=== PATIENT | female | born 1930 | race Caucasian/White ===

== ENCOUNTER 2017-03-16 13:32 | Inpatient (IN) | payer OTHER, BC ==
[2017-03-16 13:37] VITALS: BMI 28.2
[2017-03-16] MEDS ORDERED: ACETAMINOPHEN 500 MG TABLET (FP) PO ONE (13:49)
--- NOTE | 2017-03-16 13:53 | PDOC ---
History of Present Illness <Kartik Alegriaina - Last Filed: 03/16/17 16:26> - General History Source: Patient Exam Limitations: No Limitations - History of Present Illness Initial Comments: 03/16/17 13:51 87 y/o female seen in her PMD office today sent in for admission due to flu- like symptoms for 2 days. High fever, coughing, body aches and chills. No N/V/d/ C. Denies chest pain, SOB or traveling. No sick contacts. Associated Symptoms: reports: cough, fever/chills, headache. denies: shortness of breath <AshutoshRsoalio - Last Filed: 03/16/17 18:04> - General Chief Complaint: Cold Symptoms Stated Complaint: cough, fever Time Seen by Provider: 03/16/17 13:45 Past History <RajiKelsi - Last Filed: 03/16/17 16:26> - Past Medical History Cardiac Disorders: Yes COPD: No HTN: Yes - Surgical History Orthopedic Surgery: Yes (BILATERAL KNEE REPLACEMENT) - Suicide/Smoking/Psychosocial Hx Smoking Status: No Smoking History: Never smoked Have you smoked in the past 12 months: No Number of Cigarettes Smoked Daily: 0 Hx Alcohol Use: No Drug/Substance Use Hx: No Substance Use Type: None <Rosalio Boykin - Last Filed: 03/16/17 18:04> - Past Medical History Allergies/Adverse Reactions: Allergies Allergy/AdvReac Type Severity Reaction Status Date / Time prednisone Allergy Rash Verified 03/16/17 13:33 pseudoephedrine AdvReac Intermediate palpitation Verified 03/16/17 13:33 s lexpro Allergy Intermediate itching Uncoded 03/16/17 13:33 Home Medications: Ambulatory Orders Calcium Carbonate/Vitamin D3 [Caltrate 600 W-D Tablet] 1 each PO DAILY 01/01/12 Alprazolam 0.25 mg PO PRN PRN 03/16/17 Metoprolol Succinate [Toprol Xl] 25 mg PO DAILY 03/16/17 Review of Systems - Review of Systems Able to Perform ROS?: Yes Is the patient limited Qatari proficient: No Constitutional: Yes: Chills, Fever HEENTM: Yes: Nose Congestion Respiratory: Yes: Cough. No: Shortness of Breath Cardiac (ROS): No: Chest Pain ABD/GI: No: Diarrhea, Nausea, Vomiting Musculoskeletal: Yes: Muscle Pain Neurological: Yes: Headache. No: Numbness, Paresthesia All Other Systems: Reviewed and Negative <Rosalio Boykin - Last Filed: 03/16/17 18:04> *Physical Exam - Vital Signs Last Vital Signs Temp Pulse Resp BP Pulse Ox 102.2 F H 60 18 153/79 96 03/16/17 13:33 03/16/17 14:21 03/16/17 13:33 03/16/17 14:21 03/16/17 13:33 <Kelsi Alegria - Last Filed: 03/16/17 16:26> - Vital Signs Last Vital Signs Temp Pulse Resp BP Pulse Ox 102.2 F H 95 H 18 164/93 96 03/16/17 13:33 03/16/17 13:33 03/16/17 13:33 03/16/17 13:33 03/16/17 13:33 - Physical Exam General Appearance: Yes: Nourished, Appropriately Dressed. No: Apparent Distress HEENT: positive: EOMI, [place], Normal ENT Inspection, Pharynx Normal Neck: positive: Trachea midline, Normal Thyroid, Supple. negative: Tender, Rigid Respiratory/Chest: positive: Lungs Clear, Normal Breath Sounds. negative: Chest Tender, Respiratory Distress Cardiovascular: positive: Regular Rhythm, S1, S2, Tachycardia. negative: Regular Rate, Edema, JVD Vascular Pulses: Femoral (R): 4+, Femoral (L): 4+, Carotid (R): 4+, Carotid (L) : 4+, Dorsalis-Pedis (R): 4+, Doralis-Pedis (L): 4+ Gastrointestinal/Abdominal: positive: Normal Bowel Sounds, Flat, Soft. negative : Tender, Organomegaly, Pulsatile Mass Lymphatic: negative: Adenopathy, Tenderness, Other Musculoskeletal: positive: Normal Inspection. negative: CVA Tenderness Extremity: positive: Normal Capillary Refill, Normal Inspection, Normal Range of Motion. 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 rate 82 bpm <Kelsi Alegria - Last Filed: 03/16/17 16:26> ED Treatment Course - LABORATORY CBC & Chemistry Diagram: 03/16/17 13:50 03/16/17 13:50 - RADIOLOGY Radiograph Interpretation: 03/16/17 16:27 Chest X-ray Impression: Cardiomegaly, possible mild congestion Reported by: Amrit Zeng MD 03/16/17 1622 - Medications Given in the ED: ED Medications Discontinued Medications Generic Name Dose Route Start Last Admin Trade Name Freq PRN Reason Stop Dose Admin Acetaminophen 1,000 mg 03/16/17 13:49 03/16/17 13:59 Tylenol - PO 03/16/17 13:50 1,000 mg ONCE ONE Administration <Kelsi Alegria - Last Filed: 03/16/17 16:26> - LABORATORY CBC & Chemistry Diagram: 03/16/17 13:50 03/16/17 13:50 - ADDITIONAL ORDERS Additional order review: 03/16/17 18:[address] Barrett, will admit to observation for weakness and fever. Family in agreement with plan. 03/16/17 18:03 Although flu is negative, will start Tamiflu for flu like symptoms <Rosalio Boykin - Last Filed: 03/16/17 18:04> Progress Note - Progress Note Progress Note: Pt appears to have flu like symptoms, will r/o pneumonia As per attending, he wants the patient admitted. <Rosalio Boykin - Last Filed: 03/16/17 18:04> *DC/Admit/Observation/Transfer <Kelsi Alegria - Last Filed: 03/16/17 16:26> - Discharge Dispostion Admit: Yes <Rosalio Boykin - Last Filed: 03/16/17 18:04> Diagnosis at time of Disposition: Fever Qualifiers: Fever type: unspecified Qualified Code(s): R50.9 - Fever, unspecified - Discharge Dispostion Condition at time of disposition: Stable
[2017-03-16] MEDS ORDERED: SODIUM CHLORIDE 1,000 ML IV SCH (14:00)
[2017-03-16 14:14] LABS: BASO % 0.2 % (0-2.0); HEMATOCRIT 42.5 % (32.4-45.2); HEMOGLOBIN 13.3 GM/dl (10.7-15.3); MCH 22.7 pg (25.7-33.7); MCHC 31.4 g/dl (32.0-36.0); MEAN CELL VOLUME 72.4 fl (80-96); MEAN PLT VOLUME 10.9 fl (7.5-11.1); MONO % 10.1 % (3.8-10.2); NEUT % 70.7 % (42.8-82.8); PLATELET COUNT 224 K/MM3 (134-434); RBC 5.87 M/mm3 (3.60-5.2); RDW 15.1 % (11.6-15.6); WHITE BLOOD COUNT 8.6 K/mm3 (4.0-10.8)
[2017-03-16 14:36] LABS: ALBUMIN 3.6 g/dl (3.5-5.0); ALK PHOS 95 U/L (32-92); ANION GAP 6 (8-16); BILIRUBIN,TOTAL 1.6 mg/dl (0.2-1.0); BLOOD UREA NITROGEN 12 mg/dl (7-18); CALCIUM 8.9 mg/dl (8.4-10.2); CHLORIDE 98 mmol/L (98-107); CO2 27 mmol/L (22-28); CREATININE 0.7 mg/dl (0.6-1.3); GLUCOSE,RANDOM 106 mg/dl (74-106); POTASSIUM 3.4 mmol/L (3.5-5.1); SGOT/AST 65 U/L (10-42); SGPT/ALT 49 U/L (10-40); SODIUM 131 mmol/L (136-145); TOT PROT 7.7 g/dl (6.4-8.3)
[2017-03-16 14:48] LABS: ADD RBC MORPHOLOGY YES
[2017-03-16] MEDS ORDERED: OSELTAMIVIR PHOSPHATE 75 MG CAPSULE PO ONE (16:37)
[2017-03-16 16:50] LABS: URINE APPEARANCE Clear; URINE BILIRUBIN 1+ (NEGATIVE); URINE BLOOD Negative (NEGATIVE); URINE COLOR YELLOW; URINE GLUCOSE (UA) Negative (NEGATIVE); URINE KETONE Negative (NEGATIVE); URINE NITRITE Negative (NEGATIVE); URINE PROTEIN 2+ (NEGATIVE)
[2017-03-16] MEDS ORDERED: OSELTAMIVIR PHOSPHATE 75 MG CAPSULE ONE (17:05)
[2017-03-16 17:11] LABS: ANISOCYTOSIS 1+; PLATELET ESTIMATE ADEQUATE; TARGET CELLS 1+
--- NOTE | 2017-03-16 20:48 | HP ---
CHIEF COMPLAINT: Flu Like Symptoms, Weakness PCP: Dr. Bah HISTORY OF PRESENT ILLNESS: This is a 87 y/o woman with a PMHx of: Afib (on Eliquis), HTN. Who presents to the ED with flu-like symptoms and weakness x 2 days. Patient reports having a non-productive cough and sore throat. Patient reports having generalized weakness and decreased appetite since feeling ill. Patient denies CP, AP, N/V/D , constipation, dysuria. ER course was notable for: (1) Influenza Swab- negative (2) T max 102 (3) Chest Xray- cardiomegaly, possible mild congestion Recent Travel: None PAST MEDICAL HISTORY: See HPI PAST SURGICAL HISTORY: Joint Replacement PPM Social History: Smoking: Never Alcohol: None Drugs: None Family History: Non-Contributory Allergies prednisone Allergy (Verified 03/16/17 13:33) Rash pseudoephedrine Adverse Reaction (Intermediate, Verified 03/16/17 13:33) palpitations lexpro Allergy (Intermediate, Uncoded 03/16/17 13:33) itching HOME MEDICATIONS: Home Medications Medication Instructions Recorded Calcium Carbonate/Vitamin D3 1 each PO DAILY 01/01/12 [Caltrate 600 W-D Tablet] Alprazolam 0.25 mg PO PRN PRN 03/16/17 Metoprolol Succinate [Toprol Xl] 25 mg PO DAILY 03/16/17 REVIEW OF SYSTEMS CONSTITUTIONAL: fever, chills, generalized weakness Absent: diaphoresis, malaise, loss of appetite, weight change HEENT: Absent: rhinorrhea, nasal congestion, throat pain, throat swelling, difficulty swallowing, mouth swelling, ear pain, eye pain, visual changes CARDIOVASCULAR: Absent: chest pain, syncope, palpitations, irregular heart rate, lightheadedness , peripheral edema RESPIRATORY: Absent: cough, shortness of breath, dyspnea with exertion, orthopnea, wheezing, stridor, hemoptysis GASTROINTESTINAL: Absent: abdominal pain, abdominal distension, nausea, vomiting, diarrhea, constipation, melena, hematochezia GENITOURINARY: Absent: dysuria, frequency, urgency, hesitancy, hematuria, flank pain, genital pain MUSCULOSKELETAL: Absent: myalgia, arthralgia, joint swelling, back pain, neck pain SKIN: Absent: rash, itching, pallor HEMATOLOGIC/IMMUNOLOGIC: Absent: easy bleeding, easy bruising, lymphadenopathy, frequent infections ENDOCRINE: Absent: unexplained weight gain, unexplained weight loss, heat intolerance, cold intolerance NEUROLOGIC: Absent: headache, focal weakness or paresthesias, dizziness, unsteady gait, seizure, mental status changes, bladder or bowel incontinence PSYCHIATRIC: Absent: anxiety, depression, suicidal or homicidal ideation, hallucinations. PHYSICAL EXAMINATION Vital Signs - 24 hr 03/16/17 03/16/17 03/16/17 13:33 14:21 16:36 Temperature 102.2 F H 98.1 F Pulse Rate 95 H Pulse Rate [ 60 72 Apical] Respiratory 18 17 Rate Blood Pressure 164/93 Blood Pressure 153/79 140/81 [Right Arm] O2 Sat by Pulse 96 97 Oximetry (%) 03/16/17 03/16/17 03/16/17 18:30 18:40 18:51 Temperature 98.6 F 98.2 F Pulse Rate 70 Pulse Rate [ 75 Apical] Respiratory 18 18 18 Rate Blood Pressure 163/88 Blood Pressure 154/76 [Right Arm] O2 Sat by Pulse 98 98 97 Oximetry (%) 03/16/17 18:52 Temperature 98.2 F Pulse Rate 70 Pulse Rate [ Apical] Respiratory 18 Rate Blood Pressure 163/88 Blood Pressure [Right Arm] O2 Sat by Pulse 98 Oximetry (%) GENERAL: Awake, alert, and fully oriented, in no acute distress. HEAD: Normal with no signs of trauma. EYES: Pupils equal, round and reactive to light, extraocular movements intact, sclera anicteric, conjunctiva clear. No lid lag. EARS, NOSE, THROAT: Ears normal, nares patent, oropharynx clear without exudates. Dry mucous membranes. NECK: Normal range of motion, supple without lymphadenopathy, JVD, or masses. LUNGS: Breath sounds clear bilaterally, no wheeze. No accessory muscle use. HEART: Irregular rate and rhythm, normal S1 and S2 without murmur, rub or gallop. ABDOMEN: Soft, nontender, not distended, normoactive bowel sounds, no guarding, no rebound, no masses. No hepatomegaly or splenomegaly. MUSCULOSKELETAL: Normal range of motion at all joints. No bony deformities or tenderness. No CVA tenderness. UPPER EXTREMITIES: 2+ pulses, warm, well-perfused. No cyanosis. No clubbing. No peripheral edema. LOWER EXTREMITIES: 2+ pulses, warm, well-perfused. No calf tenderness. No peripheral edema. NEUROLOGICAL: Cranial nerves II-XII intact. Normal speech. Gait not observed. PSYCHIATRIC: Cooperative. Good eye contact. Appropriate mood and affect. SKIN: Warm, dry, normal turgor, no rashes or lesions noted, normal capillary refill. Laboratory Results - last 24 hr 03/16/17 03/16/17 03/16/17 13:50 13:50 13:50 WBC 8.6 D RBC 5.87 H Hgb 13.3 Hct 42.5 MCV 72.4 L MCH 22.7 L MCHC 31.4 L RDW 15.1 Plt Count 224 MPV 10.9 Neutrophils % 70.7 Lymphocytes % 19.0 Monocytes % 10.1 Eosinophils % 0.0 Basophils % 0.2 Hypochromia 1+ Platelet Estimate Adequate Platelet Comment Few large plts Anisocytosis 1+ Microcytosis 1+ Target Cells 1+ Sodium 131 L Potassium 3.4 L Chloride 98 Carbon Dioxide 27 Anion Gap 6 L BUN 12 Creatinine 0.7 Creat Clearance w eGFR > 60 Random Glucose 106 Lactic Acid 1.4 Calcium 8.9 Total Bilirubin 1.6 H D AST 65 H D ALT 49 H D Alkaline Phosphatase 95 H D Total Protein 7.7 Albumin 3.6 Urine Color Urine Appearance Urine pH Ur Specific [place] Urine Protein Urine Glucose (UA) Urine Ketones Urine Blood Urine Nitrite Urine Bilirubin Urine Urobilinogen Ur Leukocyte Esterase 03/16/17 16:38 WBC RBC Hgb Hct MCV MCH MCHC RDW Plt Count MPV Neutrophils % Lymphocytes % Monocytes % Eosinophils % Basophils % Hypochromia Platelet Estimate Platelet Comment Anisocytosis Microcytosis Target Cells Sodium Potassium Chloride Carbon Dioxide Anion Gap BUN Creatinine Creat Clearance w eGFR Random Glucose Lactic Acid Calcium Total Bilirubin AST ALT Alkaline Phosphatase Total Protein Albumin Urine Color Yellow Urine Appearance Clear Urine pH 7.0 Ur Specific [place] 1.015 Urine Protein 2+ H Urine Glucose (UA) Negative Urine Ketones Negative Urine Blood Negative Urine Nitrite Negative Urine Bilirubin 1+ H Urine Urobilinogen 1.0 Ur Leukocyte Esterase Negative - ECG Intrepretation Comment:: 03/16/17 14:23 Atrial fibrillation with a competing junctional pacemaker Incomplete right bundle branch block Nonspecific ST abnormality Abnormal ECG Vent. rate 82 bpm ASSESSMENT/PLAN: This is a 87 y/o woman with a PMHx of: Afib (on Eliquis), HTN. Placed on Observation for Fever unknown source, Weakness. Problems: 1. Fever 2. Hyponatremia 3. Hypokalemia 4. Generalized Weakness 5. Afib 6. HTN 7. Elevated Transaminitis FEN - PO Fluids - Na corrected 133 - Low Na Diet Code Status: Full Code Dispo: Observation Problem List - Problem (1) Fever Assessment/Plan: - Likely viral- suspicious for Influenza - Continue Tamiflu - Blood Cultures-pending - Urine Culture-pending - Monitor vitals - Monitor CBC - Tylenol prn - Rapid Strep Code(s): R50.9 - FEVER, UNSPECIFIED Qualifiers: Fever type: unspecified Qualified Code(s): R50.9 - Fever, unspecified (2) Hyponatremia Assessment/Plan: - NS bolus given in ED - Na corrected- 133 - Monitor BMP - Gentle IVF as needed- concerning for fluid overload - Hold Diuretic Code(s): E87.1 - HYPO-OSMOLALITY AND HYPONATREMIA (3) Hypokalemia Assessment/Plan: - Likely secondary to Hypovalemia state - Monitor BMP - Hold diuretic Code(s): E87.6 - HYPOKALEMIA (4) Generalized weakness Assessment/Plan: - Likely secondary to Acute Viral Illness vs Dehydration - NS bolus given in ED - Hypokalemia, Hypontremia noted- will replete as indicated - Monitor BMP - Monitor vitals Code(s): R53.1 - WEAKNESS (5) Afib Assessment/Plan: - EKG- Afib w/rate control, RBBB, junctional pacemaker - Continue Eliquis Code(s): I48.91 - UNSPECIFIED ATRIAL FIBRILLATION (6) HTN (hypertension) Assessment/Plan: - Controlled - Monitor BP - Continue home med - Monitor renal function Code(s): I10 - ESSENTIAL (PRIMARY) HYPERTENSION (7) DVT prophylaxis Assessment/Plan: - OOB - SCDs - Continue Eliquis Code(s): [id number] - Visit type - Emergency Visit Emergency Visit: Yes ED Registration Date: 03/16/17 Care time: The patient presented to the Emergency Department on the above date and was hospitalized for further evaluation of their emergent condition. - New Patient This patient is new to me today: Yes Date on this admission: 03/16/17 - Critical Care Critical Care patient: No
[2017-03-16 21:08] LABS: URINE RBC 0-2 /hpf (0-3); URINE WBC 0-1 (0-5)
[2017-03-17] MEDS ORDERED: BENZOCAINE/MENTH/CETYLPYRD CL 1 EACH LOZENGE MM PRN (01:46)
[2017-03-17] MEDS: guaiFENesin 200 MG/10 ML 10 ML UNIT-DOSE CUPS PO PRN ×3 (01:50→23:36)
[2017-03-17] MEDS: ACETAMINOPHEN 325 MG TABLET (FP) PO PRN (04:05)
[2017-03-17] MEDS: LOSARTAN POTASSIUM 50 MG TABLET (FP) PO SCH (06:05)
[2017-03-17] MEDS ORDERED: PATIENT'S OWN MEDICATION (NON-FORMULARY) (Losartan/Hydrochlorothiazide [Losartan-Hctz 100- PO SCH (07:00)
[2017-03-17] MEDS ORDERED: HYDROCHLOROTHIAZIDE 12.5 MG CAPSULE (FP) PO SCH (07:00)
[2017-03-17 09:02] LABS: BASO % 0.1 % (0-2.0); EOS % 0.5 % (0-4.5); HEMATOCRIT 41.6 % (32.4-45.2); HEMOGLOBIN 12.9 GM/dl (10.7-15.3); LYMPH % 28.1 % (8-40); MCH 22.8 pg (25.7-33.7); MCHC 31.1 g/dl (32.0-36.0); MEAN CELL VOLUME 73.3 fl (80-96); MEAN PLT VOLUME 10.7 fl (7.5-11.1); MONO % 10.8 % (3.8-10.2); NEUT % 60.5 % (42.8-82.8); PLATELET COUNT 200 K/MM3 (134-434); RBC 5.67 M/mm3 (3.60-5.2); RDW 15.1 % (11.6-15.6); WHITE BLOOD COUNT 8.4 K/mm3 (4.0-10.8)
[2017-03-17 09:04] LABS: ANION GAP 5 (8-16); BLOOD UREA NITROGEN 13 mg/dl (7-18); CALCIUM 8.5 mg/dl (8.4-10.2); CHLORIDE 102 mmol/L (98-107); CO2 28 mmol/L (22-28); CREATININE 0.6 mg/dl (0.6-1.3); GLUCOSE,RANDOM 106 mg/dl (74-106); MAGNESIUM 1.6 mg/dL (1.8-2.4); PHOSPHOROUS 2.9 mg/dl (2.5-4.6); POTASSIUM 3.5 mmol/L (3.5-5.1); SODIUM 135 mmol/L (136-145)
[2017-03-17] MEDS ORDERED: LIDOCAINE 5% TOPICAL PATCH TP SCH (10:00)
[2017-03-17] MEDS: OSELTAMIVIR PHOSPHATE 75 MG CAPSULE PO SCH ×2 (10:33→22:09)
[2017-03-17] MEDS: CALCIUM 500MG/VIT-D 200 UNITS COMBO TABLET (FP) PO SCH (10:33)
[2017-03-17] MEDS: LIDOCAINE 5% TOPICAL PATCH TP SCH (10:33)
[2017-03-17] MEDS: APIXABAN 2.5 MG TABLET PO SCH ×2 (10:33→22:09)
[2017-03-17] MEDS ORDERED: MAGNESIUM SULFATE 2 GM in SODIUM CHLORIDE 100 ML IVPB ONE (14:02)
[2017-03-17] MEDS ORDERED: MAGNESIUM SULF 50% (8.12 MEQ/2 ML-1 GM VIAL) IVPB ONE (14:30)
--- NOTE | 2017-03-17 15:00 | PN ---
Physical Exam: SUBJECTIVE: Patient seen and examined, reports ongoing cough, denies any chest pain or shortness of breath. OBJECTIVE: Patient is a 87 y/o woman with a PMHx of: Afib (on Eliquis) and HTN. patient was admitted from the emergency department for emergent condition. Vital Signs Period Temp Pulse Resp BP Sys/[place] Pulse Ox Last 24 Hr 97.9 F-99.4 F 70-91 17-20 140-186/76-97 97-99 GENERAL: The patient is awake, alert, and fully oriented, in no acute distress. HEAD: Normal with no signs of trauma. EYES: PERRL, extraocular movements intact, sclera anicteric, conjunctiva clear. No ptosis. ENT: Ears normal, nares patent, erythema to posterior pharynx, with clear post nasal drip, moist mucous membranes. NECK: Trachea midline, full range of motion, supple. LUNGS: Breath sounds equal, persistent dry cough, clear to auscultation bilaterally, no wheezes, no crackles, no accessory muscle use. HEART: irregular rate and rhythm, S1, S2 without murmur, rub or gallop. ABDOMEN: Soft, nontender, nondistended, normoactive bowel sounds, no guarding, no rebound, no hepatosplenomegaly, no masses. EXTREMITIES: 2+ pulses, warm, well-perfused, no edema. NEUROLOGICAL: Cranial nerves II through XII grossly intact. Normal speech, gait not observed. PSYCH: Normal mood, normal affect. SKIN: Warm, dry, normal turgor, no rashes or lesions noted Laboratory Results - last 24 hr 03/16/17 03/16/17 03/16/17 13:50 13:50 16:38 WBC RBC Hgb Hct MCV MCH MCHC RDW Plt Count MPV Neutrophils % Lymphocytes % Monocytes % Eosinophils % Basophils % Hypochromia 1+ Platelet Estimate Adequate Platelet Comment Few large plts Anisocytosis 1+ Microcytosis 1+ Target Cells 1+ Sodium Potassium Chloride Carbon Dioxide Anion Gap BUN Creatinine Random Glucose Lactic Acid 1.4 Calcium Phosphorus Magnesium Urine Color Yellow Urine Appearance Clear Urine pH 7.0 Ur Specific [place] 1.015 Urine Protein 2+ H Urine Glucose (UA) Negative Urine Ketones Negative Urine Blood Negative Urine Nitrite Negative Urine Bilirubin 1+ H Urine Urobilinogen 1.0 Ur Leukocyte Esterase Negative Urine RBC 0-2 Urine WBC 0-1 03/17/17 03/17/17 08:10 08:10 WBC 8.4 RBC 5.67 H Hgb 12.9 Hct 41.6 MCV 73.3 L MCH 22.8 L MCHC 31.1 L RDW 15.1 Plt Count 200 MPV 10.7 Neutrophils % 60.5 Lymphocytes % 28.1 Monocytes % 10.8 H Eosinophils % 0.5 Basophils % 0.1 Hypochromia Platelet Estimate Platelet Comment Anisocytosis Microcytosis Target Cells Sodium 135 L Potassium 3.5 Chloride 102 Carbon Dioxide 28 Anion Gap 5 L BUN 13 Creatinine 0.6 Random Glucose 106 Lactic Acid Calcium 8.5 Phosphorus 2.9 Magnesium 1.6 L Urine Color Urine Appearance Urine pH Ur Specific [place] Urine Protein Urine Glucose (UA) Urine Ketones Urine Blood Urine Nitrite Urine Bilirubin Urine Urobilinogen Ur Leukocyte Esterase Urine RBC Urine WBC Active Medications Generic Name Dose Route Start Last Admin Trade Name Freq PRN Reason Stop Dose Admin Acetaminophen 650 mg 03/16/17 20:37 03/17/17 04:05 Tylenol - PO 650 mg Q6H PRN Administration FEVER Apixaban 2.5 mg 03/17/17 10:00 03/17/17 10:33 Eliquis - PO 2.5 mg BID MARISOL Administration Benzocaine/Menthol 1 each 03/17/17 01:46 Cepacol Lozenge - MM PRN PRN SORE THROAT Calcium Carbonate/Cholecalciferol 1 tab 03/17/17 10:00 03/17/17 10:33 Os-[place] 500+D - PO 1 tab DAILY MARISOL Administration Guaifenesin 10 ml 03/17/17 01:21 03/17/17 01:50 Robitussin - PO 10 ml Q6H PRN Administration COUGH Lidocaine 1 patch 03/17/17 10:00 03/17/17 10:33 Lidoderm Patch - TP 1 patch DAILY MARISOL Administration Losartan Potassium 100 mg 03/17/17 07:00 03/17/17 06:05 Cozaar - PO 100 mg AM MARISOL Administration Miscellaneous 1 each 03/17/17 22:00 Lidoderm Patch Removal MC DAILY@2200 MARISOL Oseltamivir Phosphate 75 mg 03/17/17 10:00 03/17/17 10:33 Tamiflu - PO 03/22/17 09:59 75 mg BID MARISOL Administration ASSESSMENT/PLAN: 1) ID fever - low grade temp noted, no leukocytosis, continue to treat with tamiflu - monitor cbc and fever curve 2) cardiovascular afib - rate controlled continue eliquis hypertension - continue cozar, b/p remains elevated, will add norvasc 5mg FEN - PO Fluids - Low Na Diet Code Status: Full Code Dispo: Observation Visit type - Emergency Visit Emergency Visit: Yes ED Registration Date: 03/18/17 Care time: The patient presented to the Emergency Department on the above date and was hospitalized for further evaluation of their emergent condition. - New Patient This patient is new to me today: Yes Date on this admission: 03/17/17 - Critical Care Critical Care patient: No - Discharge Referral Referred to [facility] No
--- NOTE | 2017-03-17 15:25 | EKG ---
Test Reason : Blood Pressure : / mmHG Vent. Rate : 082 BPM Atrial Rate : 312 BPM P-R Int : 000 ms QRS Dur : 092 ms QT Int : 394 ms P-R-T Axes : 000 -23 072 degrees QTc Int : 460 ms ATRIAL FIBRILLATION INCOMPLETE RIGHT BUNDLE BRANCH BLOCK NONSPECIFIC ST ABNORMALITY NO PREVIOUS ECGS AVAILABLE Confirmed by MD JOHNY, JAMES ([id number]) on 03/17/2017 3:25:27 PM Referred By: PATTIE LICONA Confirmed By:JAMES MCCLAIN MD
[2017-03-17] MEDS ORDERED: POTASSIUM CHLORIDE TABS 20 MEQ TABLET.ER (FP) PO ONE (15:45)
[2017-03-17] MEDS ORDERED: ACETAMINOPHEN 1000 MG/100 ML VIAL (NON FORMULARY) IVPB ONE (17:30)
[2017-03-17] MEDS ORDERED: amLODIPine BESYLATE 5 MG TABLET (FP) PO ONE (17:32)
[2017-03-17] MEDS: ALBUTEROL SO4 2.5/IPRATROPIUM 0.5 INH SOL 3 ML VIAL.NEB. NEB SCH ×2 (18:03→22:09)
[2017-03-17] MEDS: LIDOCAINE PATCH REMOVAL MC SCH (22:10)
[2017-03-18] MEDS: guaiFENesin 200 MG/10 ML 10 ML UNIT-DOSE CUPS PO PRN ×2 (05:05→10:53)
[2017-03-18] MEDS: LOSARTAN POTASSIUM 50 MG TABLET (FP) PO SCH (06:55)
[2017-03-18 07:23] LABS: BASO % 0.2 % (0-2.0); MONO % 7.2 % (3.8-10.2)
[2017-03-18 07:31] LABS: HEMATOCRIT 41.3 % (32.4-45.2); HEMOGLOBIN 12.8 GM/dl (10.7-15.3); LYMPH % 13.7 % (8-40); MCH 22.5 pg (25.7-33.7); MCHC 30.9 g/dl (32.0-36.0); MEAN CELL VOLUME 72.7 fl (80-96); MEAN PLT VOLUME 9.9 fl (7.5-11.1); NEUT % 78.9 % (42.8-82.8); PLATELET COUNT 203 K/MM3 (134-434); RBC 5.68 M/mm3 (3.60-5.2); RDW 15.1 % (11.6-15.6); WHITE BLOOD COUNT 10.8 K/mm3 (4.0-10.8)
[2017-03-18 08:20] LABS: ANION GAP 8 (8-16); BLOOD UREA NITROGEN 11 mg/dl (7-18); CALCIUM 8.2 mg/dl (8.4-10.2); CHLORIDE 98 mmol/L (98-107); CO2 25 mmol/L (22-28); CREATININE 0.6 mg/dl (0.6-1.3); GLUCOSE,RANDOM 143 mg/dl (74-106); MAGNESIUM 1.7 mg/dL (1.8-2.4); PHOSPHOROUS 2.2 mg/dl (2.5-4.6); POTASSIUM 3.8 mmol/L (3.5-5.1); SODIUM 131 mmol/L (136-145)
[2017-03-18] MEDS ORDERED: MAGNESIUM SULF 50% (8.12 MEQ/2 ML-1 GM VIAL) IVPB ONE (08:46)
[2017-03-18] MEDS ORDERED: POTASSIUM CHLORIDE TABS 20 MEQ TABLET.ER (FP) PO ONE (08:47)
[2017-03-18] MEDS: VANCOMYCIN 1,000 MG in DEXTROSE 5%-WATER - 250 ML IVPB SCH (10:00)
[2017-03-18] MEDS ORDERED: PIPERACIL/TAZOB 3.375 GM 3.375 GM/50 ML PREMIX IVPB SCH ×2 (10:00)
[2017-03-18] MEDS ORDERED: VANCOMYCIN 1,250 MG in DEXTROSE 5%-WATER - 250 ML IVPB SCH ×2 (10:00→22:00)
--- NOTE | 2017-03-18 10:19 | PN ---
Progress Note (short form) - Note Progress Note: ID Consult dictated Probable acute influenza Possible secondary bacterial pneumonitis Pending c/s, empiric Tamiflu/ ceftriaxone/ vancomycin
[2017-03-18] MEDS: LIDOCAINE 5% TOPICAL PATCH TP SCH (10:53)
[2017-03-18] MEDS: APIXABAN 2.5 MG TABLET PO SCH ×2 (10:54→21:10)
[2017-03-18] MEDS: CALCIUM 500MG/VIT-D 200 UNITS COMBO TABLET (FP) PO SCH (10:54)
[2017-03-18] MEDS: ALBUTEROL SO4 2.5/IPRATROPIUM 0.5 INH SOL 3 ML VIAL.NEB. NEB SCH ×2 (10:55→12:00)
[2017-03-18] MEDS: CEFTRIAXONE IN IS-OSM DEXTROSE 2 GM/50 ML BAG IVPB SCH (11:00)
[2017-03-18] MEDS: OSELTAMIVIR PHOSPHATE 75 MG CAPSULE PO SCH ×2 (11:01→21:10)
[2017-03-18] MEDS ORDERED: MAGNESIUM SULF 50% (8.12 MEQ/2 ML-1 GM VIAL) ONE (11:25)
--- NOTE | 2017-03-18 11:25 | CONS ---
DATE OF CONSULTATION: DATE OF DICTATION: 03/18/2017 HISTORY OF PRESENT ILLNESS: The patient is an 87-year-old female who was evaluated for respiratory tract infection. The patient presents with a 2-day history of flu-like illness. She had described fevers, chills, cough, and diffuse body ache. She was seen in the emergency room where her temperature was 102. A rapid flu swab was performed and was negative. She was admitted to the floor and started on Tamiflu as well as antibiotics. At the present time, she is out of bed to chair. She complains of sore throat and cough, which is productive of dark sputum. She denies any chest pain or dyspnea. She appears weak and ill. She denies any ill contacts. She lives at home. Her son lives above her upstairs. He does not have a respiratory tract illness. She denies any contact with any patient with a respiratory tract illness. There are no recent hospitalizations. She is a nonsmoker. She did not receive the influenza vaccine by choice. PAST MEDICAL HISTORY: Positive for osteoarthritis, atrial fibrillation. PAST SURGICAL HISTORY: Status post bilateral total knee replacements. ALLERGIES: To PREDNISONE, LEXAPRO, and PSEUDOEPHEDRINE. MEDICATIONS: Include alprazolam, metoprolol, Eliquis, losartan. SOCIAL HISTORY: She lives at home. Her son lives upstairs. She is a nonsmoker, nondrinker. SYSTEMS REVIEW: Neurologic: No loss of consciousness, seizure activity, or focal weakness. Cardiac: Negative for chest pain or palpitations. Respiratory: As per HPI. Gastrointestinal: Negative for vomiting or diarrhea. Genitourinary: Negative for urinary tract infection. LABORATORY DATA: White count 10.8, hematocrit 41.3, platelet count 203. BUN 11, creatinine 0.6. Urinalysis 0-1 white cell. Chest x-ray shows congestion bilaterally, no focal infiltrate. PHYSICAL EXAMINATION: General: She is awake and alert. She is ill-appearing, slightly dyspneic at rest. Vital signs: Temperature 102, blood pressure 178/94, pulse 98 and irregular, respirations 22 per minute. HEENT: Sclerae anicteric. Oropharynx injected pharynx. No exudate. Neck: Supple. No palpable nodes. Heart: Heart sounds irregular, S1, S2. Lungs: Crepitations at the bases bilaterally. Abdomen: Obese, soft, nontender. Extremities: Positive for edema. IMPRESSION: 1. Probable acute influenza versus viral pneumonitis. 2. Possible secondary bacterial pneumonitis. 3. Dehydration. Pending sepsis workup, empiric antibiotic coverage with Tamiflu 75 mg p.o. b.i.d., ceftriaxone 2 g IV piggyback daily, and vancomycin 1 g IV piggyback daily, droplet precautions, hydration. Will follow. Thank you for the kind referral. RUBEN MCMULLEN M.D. [id number]
--- NOTE | 2017-03-18 15:19 | PN ---
Physical Exam: SUBJECTIVE: Patient seen and examined oob to chair. Observed walking around her room with walker. OBJECTIVE: Vital Signs Period Temp Pulse Resp BP Sys/Butterfield Pulse Ox Last 24 Hr 97.9 F-102.0 F 78-103 18-19 135-178/62-101 94-99 GENERAL: The patient is awake, alert, and fully oriented, in no acute distress. LUNGS: Frequent loose, productive cough; bibasilar rales HEART: Regular rate and rhythm, S1, S2 ABDOMEN: Soft, nontender, nondistended, normoactive bowel sounds, no guarding, no rebound, no hepatosplenomegaly, no masses. EXTREMITIES: 2+ pulses, warm, well-perfused, no edema. NEUROLOGICAL: Cranial nerves II through XII grossly intact. Normal speech, gait not observed. Laboratory Results - last 24 hr 03/18/17 03/18/17 07:12 07:12 WBC 10.8 RBC 5.68 H Hgb 12.8 Hct 41.3 MCV 72.7 L MCH 22.5 L MCHC 30.9 L RDW 15.1 Plt Count 203 MPV 9.9 Neutrophils % 78.9 Lymphocytes % 13.7 Monocytes % 7.2 Eosinophils % 0.0 Basophils % 0.2 Sodium 131 L Potassium 3.8 Chloride 98 Carbon Dioxide 25 Anion Gap 8 BUN 11 Creatinine 0.6 Random Glucose 143 H D Calcium 8.2 L Phosphorus 2.2 L D Magnesium 1.7 L Active Medications Generic Name Dose Route Start Last Admin Trade Name Freq PRN Reason Stop Dose Admin Acetaminophen 650 mg 03/16/17 20:37 03/17/17 04:05 Tylenol - PO 650 mg Q6H PRN Administration FEVER Albuterol/Ipratropium 1 amp 03/17/17 16:00 03/18/17 12:00 Duoneb - NEB 1 amp RQID MARISOL Administration Apixaban 2.5 mg 03/17/17 10:00 03/18/17 10:54 Eliquis - PO 2.5 mg BID MARISOL Administration Benzocaine/Menthol 1 each 03/17/17 01:46 Cepacol Lozenge - MM PRN PRN SORE THROAT Calcium Carbonate/Cholecalciferol 1 tab 03/17/17 10:00 03/18/17 10:54 Os-Victorino 500+D - PO 1 tab DAILY MARISOL Administration Guaifenesin 10 ml 01/26/18 01:21 03/18/17 10:53 Robitussin - PO 10 ml Q6H PRN Administration COUGH CEFTRIAXONE IN IS-OSM DEXTROSE 2 gm in 50 mls @ 100 mls/hr 03/18/17 10:30 11:00 Ceftriaxone 2 Gm-D5w Bag IVPB 100 mls/hr DAILY [facility] Administration Vancomycin HCl 1,000 mg/ 250 mls @ 200 mls/hr 03/18/17 10:30 Dextrose IVPB Q24H [facility] Lidocaine 1 patch 03/17/17 10:00 03/18/17 10:53 Lidoderm Patch - TP 1 patch DAILY [facility] Administration Losartan Potassium 100 mg 03/17/17 07:00 03/18/17 06:55 Cozaar - PO 100 mg AM [facility] Administration Miscellaneous 1 each 03/17/17 22:00 03/17/17 22:10 Lidoderm Patch Removal MC 1 each DAILY@2200 [facility] Administration Oseltamivir Phosphate 75 mg 03/17/17 10:00 03/18/17 11:01 Tamiflu - PO 03/22/17 09:59 75 mg BID MARISOL Administration ASSESSMENT/PLAN 87 year-old female with a PMH significant for HTN, and afib on Eliquis with PPM. Admitted for woman with a PMHx of: Afib (on Eliquis), HTN. Who presents to the ED with flu-like symptoms and weakness x 2 days. Patient reports having a non-productive cough and sore throat. Patient reports having generalized weakness and decreased appetite since feeling ill. Patient denies CP, AP, N/V/D , constipation, dysuria. Acute influenza Secondary bacterial pneumonitis --Tm 102, no leukocytosis --continue ceftriaxone, vanc, Tamiflu --ID following --repeat cxr in am --cultures NGTD --sputum culture ordered Hypertension --better control with addition of amlodipine; continue Losartan Atrial fibrillation --rate well-controlled --continue Eliquis Hypomagnesemia --repleted Hyponatremia --Na 131; CXR with mild congestion --Lasix IV 20mg x 1 FEN Fluids: PO intake adequate Electrolytes: replete as indicated Nutrition: low sodium DVT prophylaxis: on Eliquis Physical therapy Dispo: continues to require inpatient care. Full code. Visit type - Emergency Visit Emergency Visit: Yes ED Registration Date: 03/16/17 Care time: The patient presented to the Emergency Department on the above date and was hospitalized for further evaluation of their emergent condition. - New Patient This patient is new to me today: Yes Date on this admission: 03/18/17 - Critical Care Critical Care patient: No
[2017-03-18] MEDS ORDERED: MORPHINE SULFATE 10 MG/1 ML *VIAL IVPUSH PRN (16:06)
[2017-03-18] MEDS ORDERED: FUROSEMIDE 40 MG/4 ML INJECTABLE VIAL IVPUSH ONE (16:30)
[2017-03-18] MEDS ORDERED: ALBUTEROL SO4 0.083% IH SOL 2.5 MG/3 ML VIAL.NEB. NEB PRN (17:46)
[2017-03-18] MEDS ORDERED: ACETYLCYSTEINE 20% 200MG/ML 30 ML VIAL *FOR ORAL / INH USE ONLY NEB SCH (18:00)
[2017-03-18] MEDS: ALBUTEROL SO4 0.083% IH SOL 2.5 MG/3 ML VIAL.NEB. NEB SCH (20:40)
[2017-03-18] MEDS: ACETYLCYSTEINE 20% 200MG/ML 4 ML VIAL *FOR ORAL / INH USE ONLY NEB SCH (20:40)
[2017-03-18] MEDS: LIDOCAINE PATCH REMOVAL MC SCH (21:10)
[2017-03-18] MEDS: guaiFENesin/CODEINE 10 ML UNIT-DOSE CUPS PO SCH (21:10)
[2017-03-18] MEDS: ACETAMINOPHEN 325 MG TABLET (FP) PO PRN (23:17)
[2017-03-19] MEDS: LOSARTAN POTASSIUM 50 MG TABLET (FP) PO SCH (07:07)
--- NOTE | 2017-03-19 09:08 | PN ---
Physical Exam: SUBJECTIVE: Patient seen and examined. Persistent productive cough. OBJECTIVE: Vital Signs Period Temp Pulse Resp BP Sys/Butterfield Pulse Ox Last 24 Hr 97.9 F-100.1 F 76-98 17-19 135-150/62-90 94-97 GENERAL: The patient is awake, alert, and fully oriented, in no acute distress. LUNGS: Frequent loose, productive cough; bibasilar rales HEART: Regular rate and rhythm, S1, S2 ABDOMEN: Soft, nontender, nondistended, normoactive bowel sounds, no guarding, no rebound EXTREMITIES: 2+ pulses, warm, well-perfused, no edema NEUROLOGICAL: Cranial nerves II through XII grossly intact. Normal speech, uses walker Active Medications Generic Name Dose Route Start Last Admin Trade Name Freq PRN Reason Stop Dose Admin Acetaminophen 650 mg 03/16/17 20:37 03/18/17 23:17 Tylenol - PO 650 mg Q6H PRN Administration FEVER Acetylcysteine 800 mg 03/18/17 20:00 03/18/17 20:40 Mucomyst 20 Oral / Inh Use Only* NEB 800 mg RQID [facility] Administration Albuterol Sulfate 1 amp 03/18/17 20:00 03/18/17 20:40 Ventolin 0.083% Nebulizer Soln - NEB 1 amp RQID [facility] Administration Apixaban 2.5 mg 03/17/17 10:00 03/18/17 21:10 Eliquis - PO 2.5 mg BID [facility] Administration Benzocaine/Menthol 1 each 03/17/17 01:46 Cepacol Lozenge - MM PRN PRN SORE THROAT Calcium Carbonate/Cholecalciferol 1 tab 03/17/17 10:00 03/18/17 10:54 Os-Victorino 500+D - PO 1 tab DAILY [facility] Administration Guaifenesin/Codeine Phosphate 10 ml 03/18/17 22:00 03/18/17 21:10 Robitussin Ac - PO 10 ml HS [facility] Administration CEFTRIAXONE IN IS-OSM DEXTROSE 2 gm in 50 mls @ 100 mls/hr 03/18/17 10:30 11:00 Ceftriaxone 2 Gm-D5w Bag IVPB 100 mls/hr DAILY [facility] Administration Vancomycin HCl 1,000 mg/ 250 mls @ 200 mls/hr 03/18/17 10:30 03/18/17 10:00 Dextrose IVPB 200 mls/hr Q24H [facility] Administration Lidocaine 1 patch 03/17/17 10:00 03/18/17 10:53 Lidoderm Patch - TP 1 patch DAILY [facility] Administration Losartan Potassium 100 mg 03/17/17 07:00 03/19/17 07:07 Cozaar - PO 100 mg AM [facility] Administration Miscellaneous 1 each 03/17/17 22:00 03/18/17 21:10 Lidoderm Patch Removal MC 1 each DAILY@2200 [facility] Administration Oseltamivir Phosphate 75 mg 03/17/17 10:00 03/18/17 21:10 Tamiflu - PO 03/22/17 09:59 75 mg BID [facility] Administration ASSESSMENT/PLAN 87 year-old female with a PMH significant for HTN, and afib on Eliquis with PPM. Admitted for influenza and likely secondary bacterial pneumonitis. Acute influenza Secondary bacterial pneumonitis --Tm 100.1, no leukocytosis --continue ceftriaxone, vanc, Tamiflu --ID following --repeat cxr in am --cultures NGTD --sputum culture ordered Hypertension --continue amlodipine, Losartan Atrial fibrillation --rate well-controlled --continue Eliquis Hypomagnesemia --repleted Hyponatremia --Na 131; CXR with mild congestion --Lasix PRN FEN Fluids: PO intake adequate Electrolytes: replete as indicated Nutrition: low sodium DVT prophylaxis: on Eliquis Physical therapy Dispo: continues to require inpatient care. Full code. Visit type - Emergency Visit Emergency Visit: Yes ED Registration Date: 03/18/17 Care time: The patient presented to the Emergency Department on the above date and was hospitalized for further evaluation of their emergent condition. - New Patient This patient is new to me today: No - Critical Care Critical Care patient: No
[2017-03-19] MEDS ORDERED: REFRIGERATED ANITBIOTICS ONE (09:30)
[2017-03-19] MEDS ORDERED: PT OWN MED DRAWER 7, Y5N ONE (09:30)
[2017-03-19] MEDS: LIDOCAINE 5% TOPICAL PATCH TP SCH (09:33)
[2017-03-19] MEDS: APIXABAN 2.5 MG TABLET PO SCH ×2 (09:34→22:47)
[2017-03-19] MEDS: CALCIUM 500MG/VIT-D 200 UNITS COMBO TABLET (FP) PO SCH (09:34)
[2017-03-19] MEDS: CEFTRIAXONE IN IS-OSM DEXTROSE 2 GM/50 ML BAG IVPB SCH (09:34)
[2017-03-19] MEDS: VANCOMYCIN 1,000 MG in DEXTROSE 5%-WATER - 250 ML IVPB SCH (09:38)
[2017-03-19] MEDS: ACETYLCYSTEINE 20% 200MG/ML 4 ML VIAL *FOR ORAL / INH USE ONLY NEB SCH ×4 (09:39→20:30)
[2017-03-19] MEDS: OSELTAMIVIR PHOSPHATE 75 MG CAPSULE PO SCH ×2 (09:39→22:48)
[2017-03-19] MEDS: ALBUTEROL SO4 0.083% IH SOL 2.5 MG/3 ML VIAL.NEB. NEB SCH ×4 (09:39→20:30)
--- NOTE | 2017-03-19 10:40 | PN ---
Progress Note, Physician History of Present Illness: OOB in chair C/O L mastoid pain No c/o chest pain/ dyspnea. Less cough Temps down Tmax 102 overnight WBC WNL BC (-) Throat c/s (-) grp A strep - Current Medication List Current Medications: Active Medications Acetaminophen (Tylenol -) 650 mg PO Q6H PRN PRN Reason: FEVER Last Admin: 03/18/17 23:17 Dose: 650 mg Acetylcysteine (Mucomyst 20 Oral / Inh Use Only*) 800 mg NEB RQID [facility] Last Admin: 03/19/17 09:39 Dose: 800 mg Albuterol Sulfate (Ventolin 0.083% Nebulizer Soln -) 1 amp NEB RQID [facility] Last Admin: 03/19/17 09:39 Dose: 1 amp Apixaban (Eliquis -) 2.5 mg PO BID [facility] Last Admin: 03/19/17 09:34 Dose: 2.5 mg Benzocaine/Menthol (Cepacol Lozenge -) 1 each MM PRN PRN PRN Reason: SORE THROAT Calcium Carbonate/Cholecalciferol (Os-Victorino 500+D -) 1 tab PO DAILY [facility] Last Admin: 03/19/17 09:34 Dose: 1 tab Guaifenesin/Codeine Phosphate (Robitussin Ac -) 10 ml PO HS [facility] Last Admin: 03/18/17 21:10 Dose: 10 ml CEFTRIAXONE IN IS-OSM DEXTROSE (Ceftriaxone 2 Gm-D5w Bag) 2 gm in 50 mls @ 100 mls/hr IVPB DAILY [facility] Last Admin: 03/19/17 09:34 Dose: 100 mls/hr Vancomycin HCl 1,000 mg/ (Dextrose) 250 mls @ 200 mls/hr IVPB Q24H [facility] Last Admin: 03/19/17 09:38 Dose: 200 mls/hr Lidocaine (Lidoderm Patch -) 1 patch TP DAILY [facility] Last Admin: 03/19/17 09:33 Dose: 1 patch Losartan Potassium (Cozaar -) 100 mg PO AM [facility] Last Admin: 03/19/17 07:07 Dose: 100 mg Miscellaneous (Lidoderm Patch Removal) 1 each MC DAILY@2200 [facility] Last Admin: 03/18/17 21:10 Dose: 1 each Oseltamivir Phosphate (Tamiflu -) 75 mg PO BID [facility] Stop: 03/22/17 09:59 Last Admin: 03/19/17 09:39 Dose: 75 mg - Objective Vital Signs: Vital Signs Temperature 98.2 F 03/19/17 06:00 Pulse Rate 76 03/19/17 06:00 Respiratory Rate 18 03/19/17 06:00 Blood Pressure 150/80 03/19/17 06:00 O2 Sat by Pulse Oximetry (%) 97 03/19/17 07:55 Constitutional: Yes: No Distress Eyes: Yes: Conjunctiva Clear Cardiovascular: Yes: Regular Rate and Rhythm, S1, S2 Respiratory: Yes: Rhonchi Gastrointestinal: Yes: Normal Bowel Sounds, Soft. No: Tenderness Edema: Yes Labs: CBC, BMP 03/18/17 07:12 03/18/17 07:12 Assessment/Plan Probable acute influenza Possible secondary bacterial pneumonitis Continue empiric Tamiflu/ ceftriaxone/ vancomycin pending cultures
[2017-03-19 11:23] LABS: ALBUMIN 3.1 g/dl (3.5-5.0); ALK PHOS 78 U/L (32-92); ANION GAP 9 (8-16); BILIRUBIN,TOTAL 1.5 mg/dl (0.2-1.0); BLOOD UREA NITROGEN 16 mg/dl (7-18); CALCIUM 8.4 mg/dl (8.4-10.2); CHLORIDE 98 mmol/L (98-107); CO2 24 mmol/L (22-28); CREATININE 0.6 mg/dl (0.6-1.3); GLUCOSE,RANDOM 172 mg/dl (74-106); MAGNESIUM 1.9 mg/dL (1.8-2.4); POTASSIUM 3.9 mmol/L (3.5-5.1); SGOT/AST 35 U/L (10-42); SGPT/ALT 30 U/L (10-40); SODIUM 131 mmol/L (136-145); TOT PROT 7.1 g/dl (6.4-8.3)
[2017-03-19 19:39] LABS: BASO % 0.3 % (0-2.0); EOS % 0.2 % (0-4.5); HEMATOCRIT 41.4 % (32.4-45.2); HEMOGLOBIN 12.8 GM/dl (10.7-15.3); LYMPH % 9.5 % (8-40); MEAN CELL VOLUME 74.2 fl (80-96); MEAN PLT VOLUME 10.3 fl (7.5-11.1); MONO % 6.5 % (3.8-10.2); NEUT % 83.5 % (42.8-82.8); PLATELET COUNT 256 K/MM3 (134-434); RBC 5.59 M/mm3 (3.60-5.2); RDW 15.2 % (11.6-15.6); WHITE BLOOD COUNT 11.8 K/mm3 (4.0-10.8)
[2017-03-19] MEDS: guaiFENesin/CODEINE 10 ML UNIT-DOSE CUPS PO SCH (22:47)
[2017-03-19] MEDS: LIDOCAINE PATCH REMOVAL MC SCH (22:48)
[2017-03-20] MEDS: LOSARTAN POTASSIUM 50 MG TABLET (FP) PO SCH (06:39)
[2017-03-20] MEDS: ACETYLCYSTEINE 20% 200MG/ML 4 ML VIAL *FOR ORAL / INH USE ONLY NEB SCH ×4 (08:38→20:02)
[2017-03-20] MEDS: ALBUTEROL SO4 0.083% IH SOL 2.5 MG/3 ML VIAL.NEB. NEB SCH ×4 (08:39→20:05)
[2017-03-20 08:54] LABS: BASO % 0.2 % (0-2.0); EOS % 0.6 % (0-4.5)
[2017-03-20 09:06] LABS: HEMATOCRIT 38.6 % (32.4-45.2); HEMOGLOBIN 12.3 GM/dl (10.7-15.3); LYMPH % 15.2 % (8-40); MCH 23.3 pg (25.7-33.7); MCHC 31.9 g/dl (32.0-36.0); MEAN CELL VOLUME 72.8 fl (80-96); MEAN PLT VOLUME 10.1 fl (7.5-11.1); MONO % 7.5 % (3.8-10.2); NEUT % 76.5 % (42.8-82.8); PLATELET COUNT 210 K/MM3 (134-434); RDW 14.4 % (11.6-15.6); WHITE BLOOD COUNT 9.4 K/mm3 (4.0-10.8)
[2017-03-20 09:09] LABS: ALBUMIN 3.1 g/dl (3.5-5.0); ALK PHOS 76 U/L (32-92); ANION GAP 10 (8-16); BILIRUBIN,TOTAL 1.3 mg/dl (0.2-1.0); BLOOD UREA NITROGEN 15 mg/dl (7-18); CALCIUM 8.5 mg/dl (8.4-10.2); CHLORIDE 99 mmol/L (98-107); CO2 27 mmol/L (22-28); CREATININE 0.6 mg/dl (0.6-1.3); GLUCOSE,RANDOM 131 mg/dl (74-106); MAGNESIUM 1.7 mg/dL (1.8-2.4); POTASSIUM 3.8 mmol/L (3.5-5.1); SGOT/AST 34 U/L (10-42); SGPT/ALT 28 U/L (10-40); SODIUM 136 mmol/L (136-145)
--- NOTE | 2017-03-20 09:10 | PN ---
Physical Exam: SUBJECTIVE: Patient seen and examined, reports ongoing moist cough, denies any chest pain or shortness of breath. OBJECTIVE:Patient is a 87 y/o woman with a PMHx of: Afib (on Eliquis) and HTN. patient was admitted from the emergency department for influenza and pneumonia. Vital Signs Period Temp Pulse Resp BP Sys/Butterfield Pulse Ox Last 24 Hr 98.0 F-98.5 F 76-93 17-20 107-175/63-100 95-99 GENERAL: The patient is awake, alert, and fully oriented, in no acute distress. HEAD: Normal with no signs of trauma. EYES: PERRL, extraocular movements intact, sclera anicteric, conjunctiva clear. No ptosis. ENT: Ears normal, nares patent, oropharynx clear without exudates, moist mucous membranes. NECK: Trachea midline, full range of motion, supple. LUNGS: Breath sounds equal, course rhonchi bilateraly throughout, diminished to bases, no wheezes, no crackles, no accessory muscle use. HEART: irregular rate and rhythm, S1, S2 without murmur, rub or gallop. ABDOMEN: Soft, nontender, nondistended, normoactive bowel sounds, no guarding, no rebound, no hepatosplenomegaly, no masses. EXTREMITIES: 2+ pulses, warm, well-perfused, no edema. NEUROLOGICAL: Cranial nerves II through XII grossly intact. Normal speech, gait not observed. PSYCH: Normal mood, normal affect. SKIN: Warm, dry, normal turgor, no rashes or lesions noted Laboratory Results - last 24 hr 03/19/17 03/19/17 03/20/17 10:30 10:30 07:00 WBC 11.8 H 9.4 RBC 5.59 H 5.30 H Hgb 12.8 12.3 Hct 41.4 38.6 MCV 74.2 L 72.8 L MCH 23.0 L 23.3 L MCHC 31.0 L 31.9 L RDW 15.2 14.4 Plt Count 256 210 MPV 10.3 10.1 Neutrophils % 83.5 H 76.5 Lymphocytes % 9.5 15.2 Monocytes % 6.5 7.5 Eosinophils % 0.2 0.6 Basophils % 0.3 0.2 Sodium 131 L Potassium 3.9 Chloride 98 Carbon Dioxide 24 Anion Gap 9 BUN 16 D Creatinine 0.6 Creat Clearance w eGFR > 60 Random Glucose 172 H D Calcium 8.4 Magnesium 1.9 Total Bilirubin 1.5 H AST 35 D ALT 30 D Alkaline Phosphatase 78 Total Protein 7.1 Albumin 3.1 L CMP Sodium 136 mmol/L (136-145) 03/20/17 07:00 Potassium 3.8 mmol/L (3.5-5.1) 03/20/17 07:00 Chloride 99 mmol/L (98-107) 03/20/17 07:00 Carbon Dioxide 27 mmol/L (22-28) 03/20/17 07:00 Anion Gap 10 (8-16) 03/20/17 07:00 BUN 15 mg/dl (7-18) 03/20/17 07:00 Creatinine 0.6 mg/dl (0.6-1.3) 03/20/17 07:00 Creat Clearance w eGFR > 60 (>60) 03/20/17 07:00 Random Glucose 131 mg/dl (74-106) H D 03/20/17 07:00 Lactic Acid 1.4 mmol/L (0.0-2.0) 03/16/17 13:50 Calcium 8.5 mg/dl (8.4-10.2) 03/20/17 07:00 Phosphorus 2.2 mg/dl (2.5-4.6) L D 03/18/17 07:12 Magnesium 1.7 mg/dL (1.8-2.4) L 03/20/17 07:00 Total Bilirubin 1.3 mg/dl (0.2-1.0) H 03/20/17 07:00 AST 34 U/L (10-42) 03/20/17 07:00 ALT 28 U/L (10-40) 03/20/17 07:00 Alkaline Phosphatase 76 U/L (32-92) 03/20/17 07:00 Total Protein 7.0 g/dl (6.4-8.3) 03/20/17 07:00 Albumin 3.1 g/dl (3.5-5.0) L 03/20/17 07:00 Active Medications Generic Name Dose Route Start Last Admin Trade Name Freq PRN Reason Stop Dose Admin Acetaminophen 650 mg 03/16/17 20:37 03/18/17 23:17 Tylenol - PO 650 mg Q6H PRN Administration FEVER Acetaminophen 1,000 mg 03/20/17 09:09 Ofirmev Injection - IVPB 03/20/17 09:10 ONCE ONE Acetylcysteine 800 mg 03/18/17 20:00 03/20/17 08:38 Mucomyst 20 Oral / Inh Use Only* NEB 800 mg RQID [facility] Administration Albuterol Sulfate 1 amp 03/18/17 20:00 03/20/17 08:39 Ventolin 0.083% Nebulizer Soln - NEB 1 amp RQID [facility] Administration Apixaban 2.5 mg 03/17/17 10:00 03/19/17 22:47 Eliquis - PO 2.5 mg BID [facility] Administration Benzocaine/Menthol 1 each 03/17/17 01:46 Cepacol Lozenge - MM PRN PRN SORE THROAT Calcium Carbonate/Cholecalciferol 1 tab 03/17/17 10:00 03/19/17 09:34 Os-Victorino 500+D - PO 1 tab DAILY [facility] Administration Guaifenesin/Codeine Phosphate 10 ml 03/18/17 22:00 03/19/17 22:47 Robitussin Ac - PO 10 ml HS [facility] Administration CEFTRIAXONE IN IS-OSM DEXTROSE 2 gm in 50 mls @ 100 mls/hr 03/18/17 10:30 09:34 Ceftriaxone 2 Gm-D5w Bag IVPB 100 mls/hr DAILY [facility] Administration Vancomycin HCl 1,000 mg/ 250 mls @ 200 mls/hr 03/18/17 10:30 03/19/17 09:38 Dextrose IVPB 200 mls/hr Q24H [facility] Administration Lidocaine 1 patch 03/17/17 10:00 03/19/17 09:33 Lidoderm Patch - TP 1 patch DAILY [facility] Administration Losartan Potassium 100 mg 03/17/17 07:00 03/20/17 06:39 Cozaar - PO 100 mg AM [facility] Administration Miscellaneous 1 each 03/17/17 22:00 03/19/17 22:48 Lidoderm Patch Removal MC 1 each DAILY@2200 [facility] Administration Oseltamivir Phosphate 75 mg 03/17/17 10:00 03/19/17 22:48 Tamiflu - PO 03/22/17 09:59 75 mg BID [facility] Administration Microbiology 03/16/17 13:59 Blood - Peripheral Venous Blood Culture - Preliminary NO GROWTH OBTAINED AFTER 72 HOURS, INCUBATION TO CONTINUE FOR 2 DAYS. 03/16/17 13:50 Blood - Peripheral Venous Blood Culture - Preliminary NO GROWTH OBTAINED AFTER 72 HOURS, INCUBATION TO CONTINUE FOR 2 DAYS. 03/17/17 17:30 Throat Throat Culture - Final NO BETA HEMOLYTIC STREPTOCOCCI ISOLATED 03/17/17 17:30 Throat Group A Strep Rapid Antigen - Final 03/16/17 16:38 Urine - Urine Clean Catch Urine Culture - Final 03/16/17 13:50 Nasopharyngeal Swab Influenza Types A,B Antigen (NACHO) - Final , negative 03/16/17 13:50 Nasopharyngeal Swab - Final, negative IMAGING chest xray: right upper lobe and left lung base ASSESSMENT/PLAN: 1) ID Acute influenza Secondary bacterial pneumonitis - patient is afebrile, leukocytosis improved - continue ceftriaxone, vanc, Tamiflu - ID Dr Lane, consulted and following - serial chest xray 2) cardiovascular atrial fibrilation - rate controlled, continue eliquis hypertension -continue amlodipine, Losartan f/e/n Hypomagnesemia - repleted Hyponatremia - serum sodium 136, close monitoring DVT prophylaxis: on Eliquis Physical therapy Dispo: continues to require inpatient care. Full code.
[2017-03-20] MEDS ORDERED: ACETAMINOPHEN 1000 MG/100 ML VIAL (NON FORMULARY) IVPB ONE ×2 (09:15→19:19)
[2017-03-20] MEDS ORDERED: MAGNESIUM SULFATE 2 GM in SODIUM CHLORIDE 100 ML IVPB ONE (09:59)
[2017-03-20] MEDS ORDERED: CEFTRIAXONE 2 GM/100 ML BAG IVPB SCH (10:00)
[2017-03-20] MEDS ORDERED: MAGNESIUM SULF 50% (8.12 MEQ/2 ML-1 GM VIAL) IVPB ONE (10:15)
[2017-03-20] MEDS: OSELTAMIVIR PHOSPHATE 75 MG CAPSULE PO SCH ×2 (11:16→21:55)
[2017-03-20] MEDS: CALCIUM 500MG/VIT-D 200 UNITS COMBO TABLET (FP) PO SCH (11:16)
[2017-03-20] MEDS: APIXABAN 2.5 MG TABLET PO SCH ×2 (11:17→21:55)
[2017-03-20] MEDS: LIDOCAINE 5% TOPICAL PATCH TP SCH (11:18)
[2017-03-20] MEDS: VANCOMYCIN 1,000 MG in DEXTROSE 5%-WATER - 250 ML IVPB SCH (11:19)
[2017-03-20] MEDS: amLODIPine BESYLATE 5 MG TABLET (FP) PO SCH (14:22)
[2017-03-20] MEDS ORDERED: MAGNESIUM HYDROX 2400MG/30ML ORAL SUSPENSION 30 ML CUP PO ONE (21:33)
[2017-03-20] MEDS: guaiFENesin/CODEINE 10 ML UNIT-DOSE CUPS PO SCH (21:55)
[2017-03-20] MEDS: LIDOCAINE PATCH REMOVAL MC SCH (21:59)
[2017-03-21] MEDS: LOSARTAN POTASSIUM 50 MG TABLET (FP) PO SCH (06:07)
[2017-03-21] MEDS: ALBUTEROL SO4 0.083% IH SOL 2.5 MG/3 ML VIAL.NEB. NEB SCH ×2 (08:40→12:08)
[2017-03-21] MEDS: ACETYLCYSTEINE 20% 200MG/ML 4 ML VIAL *FOR ORAL / INH USE ONLY NEB SCH ×2 (08:40→12:08)
--- NOTE | 2017-03-21 09:49 | PN ---
Progress Note, Physician History of Present Illness: OOB in chair Feeling better No c/o chest pain/ dyspnea. Less cough Temps down Afebrile WBC WNL Blood c/s no growth Throat c/s (-) grp A strep - Current Medication List Current Medications: Active Medications Acetaminophen (Tylenol -) 650 mg PO Q6H PRN PRN Reason: FEVER Last Admin: 03/18/17 23:17 Dose: 650 mg Acetylcysteine (Mucomyst 20 Oral / Inh Use Only*) 800 mg NEB RQID [facility] Last Admin: 03/21/17 08:40 Dose: Not Given Albuterol Sulfate (Ventolin 0.083% Nebulizer Soln -) 1 amp NEB RQID [facility] Last Admin: 03/21/17 08:40 Dose: Not Given Amlodipine Besylate (Norvasc -) 5 mg PO DAILY [facility] Last Admin: 03/20/17 14:22 Dose: 5 mg Apixaban (Eliquis -) 2.5 mg PO BID [facility] Last Admin: 03/20/17 21:55 Dose: 2.5 mg Benzocaine/Menthol (Cepacol Lozenge -) 1 each MM PRN PRN PRN Reason: SORE THROAT Last Admin: 03/20/17 11:19 Dose: 1 each Calcium Carbonate/Cholecalciferol (Os-Victorino 500+D -) 1 tab PO DAILY [facility] Last Admin: 03/20/17 11:16 Dose: 1 tab Guaifenesin/Codeine Phosphate (Robitussin Ac -) 10 ml PO HS [facility] Last Admin: 03/20/17 21:55 Dose: 10 ml Vancomycin HCl 1,000 mg/ (Dextrose) 250 mls @ 200 mls/hr IVPB Q24H [facility] Last Admin: 03/20/17 11:19 Dose: 200 mls/hr Ceftriaxone Sodium (Rocephin 2gm Ivpb (Pre-Docked)) 2 gm in 100 mls @ 200 mls/ hr IVPB DAILY [facility] Last Admin: 03/20/17 11:19 Dose: 200 mls/hr Lidocaine (Lidoderm Patch -) 1 patch TP DAILY [facility] Last Admin: 03/20/17 11:18 Dose: 1 patch Losartan Potassium (Cozaar -) 100 mg PO AM [facility] Last Admin: 03/21/17 06:07 Dose: 100 mg Miscellaneous (Lidoderm Patch Removal) 1 each MC DAILY@2200 [facility] Last Admin: 03/20/17 21:59 Dose: 1 each Oseltamivir Phosphate (Tamiflu -) 75 mg PO BID [facility] Stop: 03/22/17 09:59 Last Admin: 03/20/17 21:55 Dose: 75 mg - Objective Vital Signs: Vital Signs Temperature 98.5 F 03/21/17 06:00 Pulse Rate 90 03/21/17 06:00 Respiratory Rate 18 03/21/17 07:58 Blood Pressure 165/56 03/21/17 06:00 O2 Sat by Pulse Oximetry (%) 96 03/21/17 07:58 Constitutional: Yes: No Distress Eyes: Yes: Conjunctiva Clear Cardiovascular: Yes: Regular Rate and Rhythm, S1, S2 Gastrointestinal: Yes: Other (few crepitations at bases bilaterally) Edema: LLE: 1+, RLE: 1+ Labs: CBC, BMP 03/20/17 07:00 03/20/17 07:00 Assessment/Plan Probable acute influenza Clinically improved D/C antibiotics Complete 5d course of Tamiflu
[2017-03-21] MEDS: LIDOCAINE 5% TOPICAL PATCH TP SCH (10:11)
[2017-03-21] MEDS: APIXABAN 2.5 MG TABLET PO SCH (10:11)
[2017-03-21] MEDS: amLODIPine BESYLATE 5 MG TABLET (FP) PO SCH (10:11)
[2017-03-21] MEDS: OSELTAMIVIR PHOSPHATE 75 MG CAPSULE PO SCH (10:11)
[2017-03-21] MEDS: CALCIUM 500MG/VIT-D 200 UNITS COMBO TABLET (FP) PO SCH (10:11)
--- NOTE | 2017-03-21 12:43 | DS ---
Physical Exam: SUBJECTIVE: Patient seen and examined, sitting in bedside chair, tolerating meals, denies any chest pain or shortness of breath. OBJECTIVE: This is a 87 y/o woman with a PMHx of: Afib (on Eliquis), HTN. Who presents to the ED with flu-like symptoms and weakness x 2 days. Patient reports having a non-productive cough and sore throat. Patient reports having generalized weakness and decreased appetite since feeling ill. Patient denies CP, AP, N/V/D , constipation, dysuria. ER course was notable for: (1) Influenza Swab- negative (2) T max 102 (3) Chest Xray- cardiomegaly, possible mild congestion Vital Signs Period Temp Pulse Resp BP Sys/Butterfield Pulse Ox Last 24 Hr 97.5 F-98.5 F 74-90 17-19 119-165/56-72 95-98 PHYSICAL EXAM GENERAL: The patient is awake, alert, and fully oriented, in no acute distress. HEAD: Normal with no signs of trauma. EYES: PERRL, extraocular movements intact, sclera anicteric, conjunctiva clear. ENT: Ears normal, nares patent, oropharynx clear without exudates, moist mucous membranes. NECK: Trachea midline, full range of motion, supple. LUNGS: Breath sounds equal, clear to auscultation bilaterally, no wheezes, no crackles, no accessory muscle use. HEART: Regular rate and rhythm, S1, S2 without murmur, rub or gallop. ABDOMEN: Soft, nontender, nondistended, normoactive bowel sounds, no guarding, no rebound, no hepatosplenomegaly, no masses. EXTREMITIES: 2+ pulses, warm, well-perfused, no edema. NEUROLOGICAL: Cranial nerves II through XII grossly intact. Normal speech, gait not observed. PSYCH: Normal mood, normal affect. SKIN: Warm, dry, normal turgor, no rashes or lesions noted. LABS CBC WBC 9.4 K/mm3 (4.0-10.8) 03/20/17 07:00 RBC 5.30 M/mm3 (3.60-5.2) H 03/20/17 07:00 Hgb 12.3 GM/dl (10.7-15.3) 03/20/17 07:00 Hct 38.6 % (32.4-45.2) 03/20/17 07:00 MCV 72.8 fl (80-96) L 03/20/17 07:00 MCH 23.3 pg (25.7-33.7) L 03/20/17 07:00 MCHC 31.9 g/dl (32.0-36.0) L 03/20/17 07:00 RDW 14.4 % (11.6-15.6) 03/20/17 07:00 Plt Count 210 K/MM3 (134-434) 03/20/17 07:00 MPV 10.1 fl (7.5-11.1) 03/20/17 07:00 Neutrophils % 76.5 % (42.8-82.8) 03/20/17 07:00 Lymphocytes % 15.2 % (8-40) 03/20/17 07:00 Monocytes % 7.5 % (3.8-10.2) 03/20/17 07:00 Eosinophils % 0.6 % (0-4.5) 03/20/17 07:00 Basophils % 0.2 % (0-2.0) 03/20/17 07:00 Hypochromia 1+ 03/16/17 13:50 Platelet Estimate Adequate 03/16/17 13:50 Platelet Comment Few large plts 03/16/17 13:50 Anisocytosis 1+ 03/16/17 13:50 Microcytosis 1+ 03/16/17 13:50 Target Cells 1+ 03/16/17 13:50 CMP Sodium 136 mmol/L (136-145) 03/20/17 07:00 Potassium 3.8 mmol/L (3.5-5.1) 03/20/17 07:00 Chloride 99 mmol/L (98-107) 03/20/17 07:00 Carbon Dioxide 27 mmol/L (22-28) 03/20/17 07:00 Anion Gap 10 (8-16) 03/20/17 07:00 BUN 15 mg/dl (7-18) 03/20/17 07:00 Creatinine 0.6 mg/dl (0.6-1.3) 03/20/17 07:00 Creat Clearance w eGFR > 60 (>60) 03/20/17 07:00 Random Glucose 131 mg/dl (74-106) H D 03/20/17 07:00 Lactic Acid 1.4 mmol/L (0.0-2.0) 03/16/17 13:50 Calcium 8.5 mg/dl (8.4-10.2) 03/20/17 07:00 Phosphorus 2.2 mg/dl (2.5-4.6) L D 03/18/17 07:12 Magnesium 1.7 mg/dL (1.8-2.4) L 03/20/17 07:00 Total Bilirubin 1.3 mg/dl (0.2-1.0) H 03/20/17 07:00 AST 34 U/L (10-42) 03/20/17 07:00 ALT 28 U/L (10-40) 03/20/17 07:00 Alkaline Phosphatase 76 U/L (32-92) 03/20/17 07:00 Total Protein 7.0 g/dl (6.4-8.3) 03/20/17 07:00 Albumin 3.1 g/dl (3.5-5.0) L 03/20/17 07:00 Microbiology 03/16/17 13:59 Blood - Peripheral Venous Blood Culture - Preliminary NO GROWTH OBTAINED AFTER 96 HOURS, INCUBATION TO CONTINUE FOR 1 DAYS. 03/16/17 13:50 Blood - Peripheral Venous Blood Culture - Preliminary NO GROWTH OBTAINED AFTER 96 HOURS, INCUBATION TO CONTINUE FOR 1 DAYS. 03/17/17 17:30 Throat Throat Culture - Final NO BETA HEMOLYTIC STREPTOCOCCI ISOLATED 03/17/17 17:30 Throat Group A Strep Rapid Antigen - Final 03/16/17 16:38 Urine - Urine Clean Catch Urine Culture - Final 03/16/17 13:50 Nasopharyngeal Swab Influenza Types A,B Antigen (NACHO) - Final ,negative 03/16/17 13:50 Nasopharyngeal Swab - Final, negative IMAGING chest xray: right upper lobe and left lung base HOSPITAL COURSE: Patient is a 87 y/o female that was admitted from the emergency department for acute influenza and Secondary bacterial pneumonitis, patient is afebrile and leukocytosis resolved. patient was treat with e ceftriaxone, vanc, Tamiflu throughout admission. Infectious disease physician, Dr Lane, consulted and following - serial chest xray 2) cardiovascular atrial fibrilation - rate controlled, continue eliquis hypertension -continue amlodipine, Losartan Date of Admission:03/18/17 Date of Discharge: 03/21/17 Minutes to complete discharge: 45 Discharge Summary Reason For Visit: WEEKNESS fever Current Active Problems Afib (Acute) DVT prophylaxis (Acute) Fever (Acute) Generalized weakness (Acute) HTN (hypertension) (Acute) Hypokalemia (Acute) Hyponatremia (Acute) Condition: Stable - Instructions - Home Medications Comprehensive Discharge Medication List: Ambulatory Orders Calcium Carbonate/Vitamin D3 [Caltrate 600 W-D Tablet] 1 each PO DAILY 01/01/12 Alprazolam 0.25 mg PO PRN PRN 03/16/17 - Discharge Referral Referred to [facility] No
[2017-03-21 14:18] VITALS: BP 147/75; PULSE 84; TEMP 98.6
== END 2017-03-21 15:10 | disposition home health service (06) | DRG 194 ==
LOC: FER 13:32 → FM/S 18:15 → OBSVTOIN 03-18 21:35
PROVIDERS: ADMIT Internal Medicine; ATTEND Nurse Practitioner Family
DX: J09.X1 Influenza due to identified novel influenza A virus with pneumonia (principal); E87.1 Hypo-osmolality and hyponatremia; J15.4 Pneumonia due to other streptococci; I48.91 Unspecified atrial fibrillation; E87.6 Hypokalemia; Z96.653 Presence of artificial knee joint, bilateral; I45.10 Unspecified right bundle-branch block; Z79.01 Long term (current) use of anticoagulants; I10 Essential (primary) hypertension; Z95.0 Presence of cardiac pacemaker; R74.0 Nonspecific elevation of levels of transaminase and lactic acid dehydrogenase [LDH]; E83.42 Hypomagnesemia
CPT/HCPCS: 36415; 71045-TC; 80048; 80053; 81003; 81015; 83605; 83735; 84100; 85025; 87040; 87070; 87086; 87205; 87430; 87804; 93005; 94640; 97116-GP; 97161-GP; 99283-25; G0378

== ENCOUNTER 2018-05-09 10:58 | Inpatient (IN) | payer OTHER, BC ==
[2018-05-09] MEDS ORDERED: MAG HYDROX/AL HYDROX/SIMETH 30 ML UNIT-DOSE CUP PO ONE (11:06)
[2018-05-09] MEDS ORDERED: FAMOTIDINE 20 MG/50 ML IVPB 20 MG/50 ML MG IVPB ONE (11:06)
--- NOTE | 2018-05-09 11:12 | PDOC ---
History of Present Illness - General Chief Complaint: Pain Stated Complaint: abd pain Time Seen by Provider: 05/09/18 11:00 - History of Present Illness Initial Comments: 05/09/18 11:12 88 F with h/o HTN, afib on eliquis, presenting to ED with epigastric pain. Pt reports that it started last night after eating. Pt denies any N/V. Denies diarrhea/constipation. Had a BM today that was normal, not bloody or dark/ tarry. Pt denies CP/SOB. Denies any radiation of the pain to her back. Denies lower abdominal pain. Denies flank pain. Pt states that the pain is constant. She had one similar episode 3 weeks ago that resolved spontaneously. Past History - Past Medical History Allergies/Adverse Reactions: Allergies Allergy/AdvReac Type Severity Reaction Status Date / Time prednisone Allergy Rash Verified 05/09/18 10:58 pseudoephedrine AdvReac Intermediate palpitation Verified 05/09/18 10:58 s lexpro Allergy Intermediate itching Uncoded 05/09/18 10:58 Home Medications: Ambulatory Orders Bifidobacterium Infantis [Align] 10.5 mg PO DAILY 05/09/18 Losartan/Hydrochlorothiazide [Losartan-Hctz 100-12.5 mg Tab] 1 each PO DAILY Cardiac Disorders: Yes COPD: No HTN: Yes - Surgical History Orthopedic Surgery: Yes (BILATERAL KNEE REPLACEMENT) - Suicide/Smoking/Psychosocial Hx Smoking Status: No Smoking History: Never smoked Have you smoked in the past 12 months: No Number of Cigarettes Smoked Daily: 0 Hx Alcohol Use: No Drug/Substance Use Hx: No Substance Use Type: None Review of Systems - Review of Systems Comments:: 05/09/18 11:20 GENERAL/CONSTITUTIONAL: No fever or chills. No weakness. HEAD, EYES, EARS, NOSE AND THROAT: No change in vision. No ear pain or discharge. No sore throat. CARDIOVASCULAR: No chest pain, no shortness of breath, no loss of consciousness RESPIRATORY: No cough, wheezing, or hemoptysis. GASTROINTESTINAL: + epigastric pain, No nausea, vomiting, diarrhea or constipation. GENITOURINARY: No dysuria, frequency, or change in urination. MUSCULOSKELETAL: No joint or muscle swelling or pain. No neck or back pain. SKIN: No rash NEUROLOGIC: No vertigo, no change in strength/sensation. ENDOCRINE: No increased thirst. No abnormal weight change. HEMATOLOGIC/LYMPHATIC: No anemia, easy bleeding, or history of blood clots. ALLERGIC/IMMUNOLOGIC: No hives or skin allergy. *Physical Exam - Physical Exam Comments: 05/09/18 11:20 GENERAL: Awake, alert, and fully oriented, in no acute distress. HEAD: No signs of trauma EYES: PERRLA, EOMI, sclera anicteric, conjunctiva clear ENT: Auricles normal inspection, hearing grossly normal, nares patent, oropharynx clear without exudates. Moist mucosa NECK: Nontender, no stepoffs, Normal ROM, supple, no lymphadenopathy, JVD, or masses LUNGS: Breath sounds equal, clear to auscultation bilaterally. No wheezes, and no crackles HEART: Regular rate and rhythm, normal S1 and S2, no murmurs, rubs or gallops ABDOMEN: + epigastric TTP, no pulsatile masses, normoactive bowel sounds. No guarding, no rebound. EXTREMITIES: Normal range of motion, no edema. No clubbing or cyanosis. No cords, erythema, or tenderness NEUROLOGICAL: Cranial nerves II through XII intact. 5/5 strength and sensation in all extremities, Normal speech, normal gait, normal cerebellar function SKIN: Warm, Dry, normal turgor, no rashes or lesions noted. Heart Score/ECG Review - ECG Impressions Comment:: 05/09/18 11:44 Afib, rate 85, no TWIs, mild ST depressions laterally unchanged since prior EKG , QTc 471 ED Treatment Course - LABORATORY CBC & Chemistry Diagram: 05/09/18 11:30 05/09/18 11:30 Medical Decision Making - Medical Decision Making 05/09/18 11:21 88 F with epigastric pain since last night. Suspect gastritis vs PUD. Pt with no CP/SOB but will r/o ACS with EKG and trop. Pt also with normal pulses bilaterally and no pulsatile masses, making aortic aneurysm/dissection less likely. She is noted to be hypertensive in ED but admits to not taking her BP meds today. Given h/o afib, will send lactate to r/o bowel ischemia. Negative norris's on exam but will evaluate gallbladder with US. - Labs, lipase, lactate, trop - US aorta/RUQ - GI cocktail 05/09/18 14:19 Labs unremarkable US with sludge/stones, perocholecystic fluid, and + norris's - ?cholecystitis Paged Dr. Jose for surgery input 05/09/18 14:[address] Jose, who recommends transfer to [facility] given pt's age and comorbidities. He will evaluate pt for possible OR. Pt made NPO, maintenance fluids started. HOLD eliquis at this time 05/09/18 15:17 Pt admitted to hospitalist *DC/Admit/Observation/Transfer Diagnosis at time of Disposition: Cholecystitis - Discharge Dispostion Condition at time of disposition: Fair Decision to Admit order: Yes - Referrals - Patient Instructions - Post Discharge Activity - Attestations Physician Attestion: 05/09/18 15:17 I, Dr. Kalpesh Lindsay MD, attest that this document has been prepared under my direction and personally reviewed by me in its entirety. I further attest, that it accurately reflects all work, treatment, procedures and medical decision -making performed by me.
[2018-05-09] MEDS ORDERED: MAG HYDROX/AL HYDROX/SIMETH 30 ML UNIT-DOSE CUP ONE (11:20)
[2018-05-09 11:55] LABS: BASO % 0.3 % (0-2.0); EOS % 0.1 % (0-4.5); HEMATOCRIT 42.7 % (32.4-45.2); HEMOGLOBIN 13.6 GM/dl (10.7-15.3); LYMPH % 19.2 % (8-40); MCH 23.3 pg (25.7-33.7); MEAN CELL VOLUME 72.7 fl (80-96); MEAN PLT VOLUME 9.1 fl (7.5-11.1); MONO % 8.7 % (3.8-10.2); NEUT % 71.7 % (42.8-82.8); PLATELET COUNT 194 K/MM3 (134-434); RBC 5.87 M/mm3 (3.60-5.2); RDW 15.3 % (11.6-15.6)
[2018-05-09 12:05] LABS: ALBUMIN 3.4 g/dl (3.4-5.0); ALK PHOS 105 U/L (45-117); ANION GAP 6 MMOL/L (8-16); BLOOD UREA NITROGEN 9 mg/dl (7-18); CALCIUM 8.5 mg/dl (8.5-10); CHLORIDE 96 mmol/L (98-107); CO2 28 mmol/L (21-32); CREATININE 0.6 mg/dl (0.55-1.3); GLUCOSE,RANDOM 142 mg/dl (74-106); SGOT/AST 75 U/L (15-37); SGPT/ALT 50 U/L (13-61); SODIUM 130 mmol/L (136-145); TOT PROT 7.8 g/dl (6.4-8.2)
[2018-05-09 13:00] LABS: LIPASE 104 U/L (73-393)
[2018-05-09] MEDS ORDERED: ACETAMINOPHEN 1000 MG/100 ML VIAL (NON FORMULARY) IVPB ONE (13:04)
[2018-05-09] MEDS ORDERED: ACETAMINOPHEN INJECTION 100 ML IVPB ONE (13:19)
[2018-05-09] MEDS ORDERED: SODIUM CHLORIDE 1,000 ML IV SCH (14:30)
--- NOTE | 2018-05-09 14:32 | CONSULT ---
Consult Consult Specialty:: General Surgery Reason for Consultation:: Cholelithiasis vs. Choledocholithiasis - History of Present Illness Chief Complaint: abdominal pain after a meal History of Present Illness: 88yo female HTN, DVT, Afib on Eloquis presented with one day history of med epigastric abdominal pain and RUQ pain , worsening with food , 8/10 radiated to right side of chest, denies any fever, chills, N/V/D/C . had similar episode 3 weeksago with fatty food (nuts and mushroom)last one hour and resolved on it own. We were called to assess. 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 No: Alzheimer's, CVA, Dementia , Migraine, Multiple Sclerosis, Peripheral Neuropathy, Parkinson's, Seizure, Syncope, TIA, Vertigo Cardio/Vascular: Yes: HTN, Murmur (systolic at RSB). No: AFIB, Aneurysm, Aortic Insufficiency, Aortic Stenosis, CAD, CHF, Deep Vein Thrombosis, Hyperlipdemia, AK, Mitral Insufficiency, Mitral Stenosis, Pulmonary Hypertension , Other Pulmonary: Yes: Bronchitis. No: Asthma, Cancer, COPD, O2 Dependent, Pneumonia, Previously Intubated, Pulmonary Embolus, Pulmonary Fibrosis, Sleep Apnea, Other Gastrointestinal: Yes: GERD, Irritable Bowel Disease. No: Ascites, Cancer, Constipation, Crohn's Disease, Diverticulitis, Diverticulosis, Esophageal Varices, Gastritis, GI Bleed, Hemorrhoids, Hiatal Hernia, Inflamatory Bowel Disease, Pancreatitis, Peptic Ulcer Disease, Ulcerative Colitis, Other Psych: Yes: Anxiety Musculoskeletal: Yes: Osteoarthritis (Knees) ENT: Yes: Allergic Rhinitis - Past Surgical History Past Surgical History: Yes: Joint Replacement (both Knees) - Alcohol/Substance Use Hx Alcohol Use: No - Smoking History Smoking history: Never smoked Have you smoked in the past 12 months: No Aproximately how many cigarettes per day: 0 Home Medications - Allergies Allergies/Adverse Reactions: Allergies Allergy/AdvReac Type Severity Reaction Status Date / Time prednisone Allergy Rash Verified 05/09/18 10:58 pseudoephedrine AdvReac Intermediate palpitation Verified 05/09/18 10:58 s lexpro Allergy Intermediate itching Uncoded 05/09/18 10:58 - Home Medications Home Medications: Ambulatory Orders Bifidobacterium Infantis [Align] 10.5 mg PO DAILY 05/09/18 Losartan/Hydrochlorothiazide [Losartan-Hctz 100-12.5 mg Tab] 1 each PO DAILY Review of Systems - Review of Systems Constitutional: denies: Chills, Fever Eyes: denies: Blind Spots, Blurred Vision HENT: denies: Difficult Swallowing, Ocular Prosthesis Neck: denies: Pain on Movement, Tenderness Cardiovascular: denies: Chest Pain, Palpitations Respiratory: denies: Cough Gastrointestinal: reports: Abdominal Pain, Indigestion. denies: Constipation, Diarrhea, Nausea, Rectal Bleeding, Vomiting Genitourinary: denies: Dysuria, Flank Pain Breasts: reports: No Symptoms Reported. denies: Pain Musculoskeletal: reports: Decreased ROM, Muscle Weakness Integumentary: denies: Pruritis, Rash Neurological: denies: Seizure, Syncope Endocrine: denies: Unexplained Weight Gain, Unexplained Weight Loss Hematology/Lymphatic: denies: Easily Bruised, Excessive Bleeding Psychiatric: denies: Anxiety, Depression Physical Exam Vital Signs: Vital Signs Temperature 98 F 05/09/18 10:58 Pulse Rate 79 05/09/18 13:12 Respiratory Rate 20 05/09/18 13:12 Blood Pressure 213/110 H 05/09/18 13:12 O2 Sat by Pulse Oximetry (%) 97 05/09/18 11:42 Constitutional: Yes: Well Nourished, No Distress, Calm Eyes: Yes: Conjunctiva Clear, EOM Intact HENT: Yes: Atraumatic, Normocephalic Neck: Yes: Supple, Trachea Midline Cardiovascular: Yes: Regular Rate and Rhythm, Pulse Irregular, S1, S2 Respiratory: Yes: Regular, CTA Bilaterally Gastrointestinal: Yes: Normal Bowel Sounds, Soft, Tenderness (RUQ very mild no murphys). No: Tenderness, Epigastrium, Tenderness, Rebound ...Rectal Exam: Yes: Deferred Renal/: No: CVA Tenderness - Left, CVA Tenderness - Right Musculoskeletal: No: Muscle Pain, Muscle Weakness Extremities: No: Cool, Cyanosis Edema: No Peripheral Pulses WNL: Yes Integumentary: No: Jaundice, Rash Neurological: Yes: Alert. No: Oriented Psychiatric: Yes: Alert. No: Oriented Labs: CBC, BMP 05/09/18 11:30 05/09/18 11:30 Imaging - Results Ultrasound: Report Reviewed, Image Reviewed (distended GB, murphys?) Problem List - Problems (1) Biliary colic Assessment/Plan: 88yo female MMP with abdominal pain after a meal, no leukocytosis, no fever, no clear sonographic evidence of obstructive gallstone disease. She is not a good surgical risk. No acute surgical intervention is indicated. If she doesnt improve with supportive medical care. Will follow HIDA NPO and IVF hydration Repeat labs hold NOAC therapy in anticipation of intervention GI evaluation if Tbili is persistently elevated Consider IR for cholecystostomy Low fat diet when diet is resumed Discuss goals of care Thank you for the opportunity to participate in the care of this patient. Code(s): K80.50 - CALCULUS OF BILE DUCT W/O CHOLANGITIS OR CHOLECYST W/O OBST (2) Afib Code(s): I48.91 - UNSPECIFIED ATRIAL FIBRILLATION Qualifiers: Atrial fibrillation type: chronic Qualified Code(s): I48.2 - Chronic atrial fibrillation (3) HTN (hypertension) Code(s): I10 - ESSENTIAL (PRIMARY) HYPERTENSION Qualifiers: Hypertension type: essential hypertension Qualified Code(s): I10 - Essential (primary) hypertension (4) DVT prophylaxis Code(s): EGP4743 -
[2018-05-09] MEDS ORDERED: PIPERACILLIN/TAZOB 4.5 GM 4.5 GM/100 ML BAG IVPB ONE (15:18)
[2018-05-09] MEDS ORDERED: PIPERACILLIN/TAZOBACTAM 4.5 GM VIAL IVPB ONE (15:30)
[2018-05-09] MEDS ORDERED: KCL 10 MEQ IVPB 10 MEQ/100 ML INFUS.BAG IVPB ONE (17:27)
[2018-05-09] MEDS: KCL 10 MEQ IVPB 10 MEQ/100 ML INFUS.BAG IVPB SCH ×3 (17:28→22:58)
[2018-05-09] MEDS ORDERED: LOSARTAN POTASSIUM 100 MG TABLET PO SCH (20:15)
[2018-05-09] MEDS ORDERED: PATIENT'S OWN MEDICATION (NON-FORMULARY) (Losartan/Hydrochlorothiazide [Losartan-Hctz 100- PO SCH (20:15)
[2018-05-09] MEDS ORDERED: LOSARTAN POTASSIUM 50 MG TABLET (FP) PO SCH (20:15)
[2018-05-09] MEDS: HYDROCHLOROTHIAZIDE 12.5 MG CAPSULE (FP) PO SCH (20:31)
[2018-05-09] MEDS ORDERED: LOSARTAN POTASSIUM 50 MG TABLET (FP) PO ONE (21:06)
[2018-05-09] MEDS ORDERED: MORPHINE SULFATE 2 MG/ML VIAL IVPUSH PRN (21:16)
[2018-05-09] MEDS ORDERED: ACETAMINOPHEN 325 MG TABLET (FP) PO PRN (21:16)
--- NOTE | 2018-05-09 21:16 | HP ---
Addendum entered and electronically signed by Alejandro North, RESIDENT 05/09/18 22 :31: pharmacy is currently closed please call in AM Original Note: <Alejandro North - Last Filed: 05/09/18 22:25> CHIEF COMPLAINT:Abdominal pain PCP: HISTORY OF PRESENT ILLNESS: 88 year old female with pmhx of HTN , Afib on eliquis , DVT, presented with one day history of med epigastric abdominal pain and RUQ pain , worsening with food , 8/10 radiated to right side of chest , denies any fever , chills, N/V/D/C . had similar episode 3 weeksago with fatty food (nuts and mushroom)last one hour and resolved on it own . denies any chest pain , sob , palpitation , urinary symptoms , leg swelling. was found to have elevated bp to 210 systoic in [facility] , and was sent to [facility] ER course was notable for: (1)US abdmomen (2)CBC, CMP (3) KCL 10 Recent Travel: denies PAST MEDICAL HISTORY: as per HPI PAST SURGICAL HISTORY: B/L Knee replacement Social History: Smoking:denies Alcohol:denies Drugs: denies Family History: Allergies prednisone Allergy (Verified 05/09/18 10:58) Rash pseudoephedrine Adverse Reaction (Intermediate, Verified 05/09/18 10:58) palpitations lexpro Allergy (Intermediate, Uncoded 05/09/18 10:58) itching HOME MEDICATIONS: Home Medications Medication Instructions Recorded Bifidobacterium Infantis [Align] 10.5 mg PO DAILY 05/09/18 Losartan/Hydrochlorothiazide 1 each PO DAILY 05/09/18 [Losartan-Hctz 100-12.5 mg Tab] REVIEW OF SYSTEMS CONSTITUTIONAL: Absent: fever, chills, diaphoresis, generalized weakness, malaise, loss of appetite, weight change HEENT: Absent: rhinorrhea, nasal congestion, throat pain, throat swelling, difficulty swallowing, mouth swelling, ear pain, eye pain, visual changes CARDIOVASCULAR: Absent: chest pain, syncope, palpitations, irregular heart rate, lightheadedness , peripheral edema RESPIRATORY: Absent: cough, shortness of breath, dyspnea with exertion, orthopnea, wheezing, stridor, hemoptysis GASTROINTESTINAL: Absent: abdominal pain, abdominal distension, nausea, vomiting, diarrhea, constipation, melena, hematochezia GENITOURINARY: Absent: dysuria, frequency, urgency, hesitancy, hematuria, flank pain, genital pain MUSCULOSKELETAL: Absent: myalgia, arthralgia, joint swelling, back pain, neck pain SKIN: Absent: rash, itching, pallor HEMATOLOGIC/IMMUNOLOGIC: Absent: easy bleeding, easy bruising, lymphadenopathy, frequent infections ENDOCRINE: Absent: unexplained weight gain, unexplained weight loss, heat intolerance, cold intolerance NEUROLOGIC: Absent: headache, focal weakness or paresthesias, dizziness, unsteady gait, seizure, mental status changes, bladder or bowel incontinence PSYCHIATRIC: Absent: anxiety, depression, suicidal or homicidal ideation, hallucinations. PHYSICAL EXAMINATION Vital Signs - 24 hr 05/09/18 05/09/18 05/09/18 10:58 11:42 13:12 Temperature 98 F Pulse Rate 87 Pulse Rate [ 77 79 Right] Respiratory 20 20 20 Rate Blood Pressure 206/109 H Blood Pressure 180/124 H 213/110 H [Left Arm] O2 Sat by Pulse 98 97 Oximetry (%) 05/09/18 05/09/18 05/09/18 14:00 16:20 18:17 Temperature 97.9 F 98.2 F 98.2 F Pulse Rate Pulse Rate [ 77 79 81 Right] Respiratory 18 17 17 Rate Blood Pressure Blood Pressure 182/106 H 181/112 H 190/112 H [Left Arm] O2 Sat by Pulse 97 99 100 Oximetry (%) GENERAL: AAO3 , nad HEAD: NC/AT EYES:ALKA, EOMI , sclera an icteric ENT: Moist mucous membranes. NECK: supple LUNGS: Breath sounds equal, clear to auscultation bilaterally. No wheezes, and no crackles. No accessory muscle use. HEART: irregulary irregular , normal S1 and S2 2-3 /6 systolic murmur LUSB, No rub or gallop. ABDOMEN: Soft, med epigastric and RUQ tenderness , + Saleh, not distended, normoactive bowel sounds, no cva tenderness LOWER EXTREMITIES: 2+ pulses, warm, well-perfused. No calf tenderness. No peripheral edema. NEUROLOGICAL: Cranial nerves II-XII intact. Normal speech. Normal gait. PSYCHIATRIC: Cooperative. SKIN: Warm, dry, normal turgor, keratosis mall on LUQ of her abdomen Laboratory Results - last 24 hr 05/09/18 05/09/18 05/09/18 11:30 11:30 11:30 WBC 6.0 RBC 5.87 H Hgb 13.6 Hct 42.7 MCV 72.7 L MCH 23.3 L MCHC 32.0 RDW 15.3 Plt Count 194 MPV 9.1 Absolute Neuts (auto) 4.4 Neutrophils % 71.7 Lymphocytes % 19.2 Monocytes % 8.7 Eosinophils % 0.1 Basophils % 0.3 Sodium 130 L Potassium 3.0 L Chloride 96 L Carbon Dioxide 28 Anion Gap 6 L BUN 9 Creatinine 0.6 Creat Clearance w eGFR 94.35 Random Glucose 142 H Lactic Acid Calcium 8.5 Total Bilirubin 2.0 H AST 75 H ALT 50 Alkaline Phosphatase 105 Creatine Kinase 60 Troponin I < 0.03 Total Protein 7.8 Albumin 3.4 Lipase 104 05/09/18 11:30 WBC RBC Hgb Hct MCV MCH MCHC RDW Plt Count MPV Absolute Neuts (auto) Neutrophils % Lymphocytes % Monocytes % Eosinophils % Basophils % Sodium Potassium Chloride Carbon Dioxide Anion Gap BUN Creatinine Creat Clearance w eGFR Random Glucose Lactic Acid 1.6 Calcium Total Bilirubin AST ALT Alkaline Phosphatase Creatine Kinase Troponin I Total Protein Albumin Lipase CBC, BMP 05/09/18 11:30 05/09/18 11:30 ASSESSMENT/PLAN: 88 year old female with pmhx of HTN , Afib on eliquis and H/O DVT presented with one day history of med spigastric and RUQ abdominal pain and was found to have hypertensive urgency admitted for tele for further eval and treatment. # Abdominal pain Biliary cholic , R/O Acute cholecystits vs choledocholithisis * US abdomen * Hida Scan * CBCm CMP , total bili, direct bilirubin , * monitor off abx * IV fluids NS@ 83 cc/hr * pain control Tylenol, Morphine * NPO except meds * Type and screen , PT, PTT, EKG , CXR * Surgery consulted Dr Jose recommend no intervention at this point and medical management. * Consider GI consult in AM * PPI 20 daily for gerd # Hypertensive urgency 213/110 * did not take her meds today * restart home meds * if continue to be elevated will give Hydrazine Po once * transfer to tele * BP Q 2hr # Afib * rate controlled @ 85 * Hold eliquis for now * verified home meds # Hypokalemia , hyponatremia , replenished # FEN * NS @ 83 cc/hr * Hypokalemia replinished, hyponatremia repeat lab in am * NPO except meds # Dispo * med Surg # proph * DvTS: Hep sq BID , SCDS * GI: PPI 20 daily , # Full code Visit type - Emergency Visit Emergency Visit: Yes Care time: The patient presented to the Emergency Department on the above date and was hospitalized for further evaluation of their emergent condition. - New Patient This patient is new to me today: Yes Date on this admission: 05/09/18 - Critical Care Critical Care patient: No <Fernando Baumann - Last Filed: 06/06/18 19:49> Seen and examined; agree with above aside from as supplemented by myself in my own assessment, plan, and physical examination.
--- NOTE | 2018-05-09 21:31 | PN ---
Teaching Attending Note Name of Resident: Alejandro North ATTENDING PHYSICIAN STATEMENT I saw and evaluated the patient. I reviewed the resident's note and discussed the case with the resident. I agree with the resident's findings and plan as documented. PCP: Dr. Barron SUBJECTIVE: Seen and examined; please see resident note for further historical discussion. Briefly, this is an 88 y/o female with a PMH significant for HTN, DVT, Afib on eliquis. Presents with abdominal pain after meal. No nausea/vomitting/ diarrhea. Moderate in intensity. Upper abd to R-side; worse with food not made better with anything. Similar episode last month. US shows possible small calculi and trace pericholecystic fluid. Dr. Jose consulted; states that she is not a good surgical risk and that she should be transferred to [facility] for further tx and monitoring; he recommended holding NOAC and keeping NPO and continuing IVF. When she arrived at [facility] her BP was noted to be in the 200s and she was subsequentially moved to telemetry. 10 sys ROS done and negative aside from HPI PMH (HTN, Afib, DVT), PSH, Family hx, Social hx reviewed Medication list reviewed; pending reconciliation Losartan 100, HCTZ 12.5, Eliquis, OBJECTIVE: VS, labs, imaging reviewed NAD, AAO, resting in bed NC AT EOMI PERRLA RRR s1/2 no mgr Lungs CTAB, w/ sym exp Tender on R-side, ND, +BS CN2-12 wnl, no fnd Normal mood, appropriate behavior US shows distended GB with possible small calculi and trace pericholecystic fluid with positive sonographic norris's sign. Recommended HIDA. ASSESSMENT AND PLAN: Patient presents for abdominal pain found to have ? cholecystitis 1) Possible Cholecystitis vs. biliary colic -No definitive cholecystitis on US; HIDA pending. Monitoring off abx; if she becomes febrile or unstable empirically cover. Followup sgy recs. Holding eliquis in case procedure indicated. NPO and IVF. Pain control with MSO4 PRN. Discuss possibility Ctube, etc. 2) Hypertensive Urgency -Telemetry; likely due to not getting PO meds today. Giving her home meds and monitoring; asx at this juncture. 3) Elevated Bilirubin -Fractionate and trend CMP; if worsens consider GI consult. 4) Hyponatremia -Check serum/urine osm, urine Na. On empiric hydration 5) Hypokalemia -Replaced; followup in AM 6) Hx DVT -Monitor; held tonight's dose AC. Discuss plans for procedure with sgy 7) Hx Afib -Verify and continue rate control agent; holding AC as per above 8) Hyperglycemia -140s; no documented history of DM. Monitor 9) Chronic microcytosis -Monitor; no anemia. Consider OP iron studies and workup FENA -NS@75 -PRN replete -NPO -As tolerated Full Code
[2018-05-09] MEDS ORDERED: HEPARIN NA (PORCINE) 5,000 UNITS/ML 1ML VIAL SQ SCH (22:00)
[2018-05-09 23:49] VITALS: BMI 27.2
[2018-05-10] MEDS ORDERED: hydrALAZINE HCL 20 MG/ML VIAL IVPUSH ONE (01:05)
[2018-05-10] MEDS ORDERED: SODIUM CHLORIDE 1,000 ML IV SCH ×2 (01:05→16:25)
[2018-05-10 07:15] LABS: BASO % 0.1 % (0-2.0); HEMOGLOBIN 14.5 GM/dL (10.7-15.3); LYMPH % 18.1 % (8-40); MCH 23.3 pg (25.7-33.7); MCHC 32.9 g/dl (32.0-36.0); MEAN CELL VOLUME 70.8 fl (80-96); MEAN PLT VOLUME 9.1 fl (7.5-11.1); MONO % 8.7 % (3.8-10.2); NEUT % 73.1 % (42.8-82.8); PLATELET COUNT 196 K/MM3 (134-434); RBC 6.22 M/mm3 (3.60-5.2); WHITE BLOOD COUNT 10.2 K/mm3 (4.0-10.0)
[2018-05-10 07:45] LABS: ALBUMIN 3.1 g/dl (3.4-5.0); ALK PHOS 116 U/L (45-117); AMYLASE 95 U/L (25-115); ANION GAP 9 MMOL/L (8-16); BILIRUBIN,TOTAL 1.8 mg/dL (0.2-1); BLOOD UREA NITROGEN 9 mg/dL (7-18); CALCIUM 8.3 mg/dL (8.5-10.1); CHLORIDE 96 mmol/L (98-107); CO2 29 mmol/L (21-32); CREATININE 0.7 mg/dL (0.55-1.3); GLUCOSE,RANDOM 117 mg/dL (74-106); LIPASE 150 U/L (73-393); MAGNESIUM 1.7 mg/dL (1.8-2.4); PHOSPHOROUS 2.7 mg/dL (2.5-4.9); POTASSIUM 3.2 mmol/L (3.5-5.1); SGOT/AST 57 U/L (15-37); SGPT/ALT 50 U/L (13-61); SODIUM 134 mmol/L (136-145); TOT PROT 7.7 g/dl (6.4-8.2)
[2018-05-10 08:05] LABS: INR 1.29 (0.83-1.09); PROTHROMBIN TIME (PATIENT) 15.3 SEC (9.7-13.0)
[2018-05-10 08:06] LABS: ACTIVATED PTT 40.6 SECONDS (25.2-36.5)
[2018-05-10] MEDS ORDERED: MAGNESIUM SULF 50% (8.12 MEQ/2 ML-1 GM VIAL) IVPB ONE (08:13)
[2018-05-10] MEDS: HYDROCHLOROTHIAZIDE 12.5 MG CAPSULE (FP) PO SCH (09:12)
[2018-05-10] MEDS ORDERED: HEPARIN NA (PORCINE) 5,000 UNITS/ML 1ML VIAL SQ SCH (10:00)
[2018-05-10] MEDS ORDERED: PANTOPRAZOLE 20 MG TABLET (FP) PO SCH (10:00)
--- NOTE | 2018-05-10 10:56 | EKG ---
Test Reason : Blood Pressure : / mmHG Vent. Rate : 085 BPM Atrial Rate : 300 BPM P-R Int : 000 ms QRS Dur : 092 ms QT Int : 412 ms P-R-T Axes : 000 -30 -10 degrees QTc Int : 490 ms ATRIAL FIBRILLATION LEFT AXIS DEVIATION INCOMPLETE RIGHT BUNDLE BRANCH BLOCK MODERATE VOLTAGE CRITERIA FOR LVH, MAY BE NORMAL VARIANT NONSPECIFIC ST ABNORMALITY PROLONGED QT ABNORMAL ECG WHEN COMPARED WITH ECG OF 09-MAY-2018 11:20, T WAVE INVERSION NO LONGER EVIDENT IN LATERAL LEADS Confirmed by FRANK FRANK MD ([id number]) on 05/10/2018 10:56:06 AM Referred By: ANDREA RODGERS DRELBERT Confirmed By:FRANK FRANK MD
--- NOTE | 2018-05-10 11:02 | EKG ---
Test Reason : Blood Pressure : / mmHG Vent. Rate : 085 BPM Atrial Rate : 064 BPM P-R Int : 000 ms QRS Dur : 090 ms QT Int : 396 ms P-R-T Axes : 000 -30 -67 degrees QTc Int : 471 ms ATRIAL FIBRILLATION LEFT AXIS DEVIATION RSR' OR QR PATTERN IN V1 SUGGESTS RIGHT VENTRICULAR CONDUCTION DELAY MINIMAL VOLTAGE CRITERIA FOR LVH, MAY BE NORMAL VARIANT ABNORMAL ECG WHEN COMPARED WITH ECG OF 16-MAR-2017 14:17, T WAVE INVERSION NOW EVIDENT IN LATERAL LEADS Confirmed by FRANK FRANK MD ([id number]) on 05/10/2018 11:02:31 AM Referred By: KAMRAN DAVIS Confirmed By:FRANK FRANK MD
--- NOTE | 2018-05-10 11:30 | PN ---
Physical Exam: SUBJECTIVE: Patient seen and examined at bedside. no acute events since admission. c/o abd pain but mildly improved w/ meds. denies fever, chill, cp, sob, n/v/d, urinary sxs OBJECTIVE: Vital Signs Period Temp Pulse Resp BP Sys/Butterfield Pulse Ox Last 24 Hr 97.8 F-99.9 F 77-97 17-20 110-213/78-124 95-100 GENERAL: AAO3 , nad HEAD: NC/AT EYES:ALKA, EOMI , sclera an icteric ENT: Moist mucous membranes. NECK: supple LUNGS: CTAB HEART: irregulary irregular , normal S1 and S2 2-3 /6 systolic murmur LUSB, No rub or gallop. ABDOMEN: Soft, med epigastric and RUQ tenderness , not distended, hypoactive bowel sounds, no cva tenderness LOWER EXTREMITIES: 2+ pulses, warm, well-perfused. No calf tenderness. No peripheral edema. NEUROLOGICAL: Cranial nerves II-XII intact. Normal speech. PSYCHIATRIC: Cooperative. SKIN: Warm, dry, normal turgor, keratosis mall on LUQ of her abdomen Laboratory Results - last 24 hr 05/09/18 05/09/18 05/09/18 11:30 11:30 11:30 WBC 6.0 RBC 5.87 H Hgb 13.6 Hct 42.7 MCV 72.7 L MCH 23.3 L MCHC 32.0 RDW 15.3 Plt Count 194 MPV 9.1 Absolute Neuts (auto) 4.4 Neutrophils % 71.7 Lymphocytes % 19.2 Monocytes % 8.7 Eosinophils % 0.1 Basophils % 0.3 Nucleated RBC % PT with INR INR PTT (Actin FS) Sodium 130 L Potassium 3.0 L Chloride 96 L Carbon Dioxide 28 Anion Gap 6 L BUN 9 Creatinine 0.6 Creat Clearance w eGFR 94.35 Random Glucose 142 H Lactic Acid Calcium 8.5 Phosphorus Magnesium Total Bilirubin 2.0 H Direct Bilirubin AST 75 H ALT 50 Alkaline Phosphatase 105 Creatine Kinase 60 Troponin I < 0.03 B-Natriuretic Peptide Total Protein 7.8 Albumin 3.4 Total Amylase Lipase 104 Blood Type Antibody Screen 05/09/18 05/09/18 05/09/18 11:30 21:45 23:00 WBC RBC Hgb Hct MCV MCH MCHC RDW Plt Count MPV Absolute Neuts (auto) Neutrophils % Lymphocytes % Monocytes % Eosinophils % Basophils % Nucleated RBC % PT with INR INR PTT (Actin FS) Sodium Potassium 3.5 Chloride Carbon Dioxide Anion Gap BUN Creatinine Creat Clearance w eGFR Random Glucose Lactic Acid 1.6 Calcium Phosphorus Magnesium Total Bilirubin Direct Bilirubin AST ALT Alkaline Phosphatase Creatine Kinase Troponin I 0.03 B-Natriuretic Peptide Total Protein Albumin Total Amylase Lipase Blood Type Antibody Screen 05/10/18 05/10/18 05/10/18 05:30 05:30 05:30 WBC 10.2 H RBC 6.22 H Hgb 14.5 Hct 44.0 MCV 70.8 L MCH 23.3 L MCHC 32.9 RDW 16.0 H Plt Count 196 MPV 9.1 Absolute Neuts (auto) 7.4 Neutrophils % 73.1 Lymphocytes % 18.1 Monocytes % 8.7 Eosinophils % 0.0 Basophils % 0.1 Nucleated RBC % 0 PT with INR 15.30 H INR 1.29 H PTT (Actin FS) 40.6 H Sodium 134 L Potassium 3.2 L Chloride 96 L Carbon Dioxide 29 Anion Gap 9 BUN 9 Creatinine 0.7 Creat Clearance w eGFR 78.97 Random Glucose 117 H Lactic Acid Calcium 8.3 L Phosphorus 2.7 Magnesium 1.7 L Total Bilirubin 1.8 H Direct Bilirubin 1.0 H AST 57 H ALT 50 Alkaline Phosphatase 116 Creatine Kinase Troponin I B-Natriuretic Peptide 2456.0 H Total Protein 7.7 Albumin 3.1 L Total Amylase 95 Lipase 150 Blood Type Antibody Screen 05/10/18 05:30 WBC RBC Hgb Hct MCV MCH MCHC RDW Plt Count MPV Absolute Neuts (auto) Neutrophils % Lymphocytes % Monocytes % Eosinophils % Basophils % Nucleated RBC % PT with INR INR PTT (Actin FS) Sodium Potassium Chloride Carbon Dioxide Anion Gap BUN Creatinine Creat Clearance w eGFR Random Glucose Lactic Acid Calcium Phosphorus Magnesium Total Bilirubin Direct Bilirubin AST ALT Alkaline Phosphatase Creatine Kinase Troponin I B-Natriuretic Peptide Total Protein Albumin Total Amylase Lipase Blood Type O NEGATIVE Antibody Screen Negative Active Medications Generic Name Dose Route Start Last Admin Trade Name Freq PRN Reason Stop Dose Admin Acetaminophen 650 mg 05/09/18 21:16 Tylenol - PO Q4H PRN PAIN Heparin Sodium (Porcine) 5,000 unit 05/10/18 10:00 05/10/18 09:13 Heparin - SQ 5,000 unit BID MARISOL Administration Hydrochlorothiazide 12.5 mg 05/09/18 20:15 05/10/18 09:12 Hctz - PO 12.5 mg DAILY MARISOL Administration Sodium Chloride 1,000 mls @ 42 mls/hr 05/10/18 01:05 05/10/18 01:23 Normal Saline - IV 42 mls/hr ASDIR MARISOL Administration Losartan Potassium 100 mg 05/09/18 20:15 05/10/18 09:12 Cozaar - PO 100 mg DAILY MARISOL Administration Morphine Sulfate 1 mg 05/09/18 21:16 Morphine Sulfate IVPUSH Q4H PRN PAIN LEVEL 7 - 10 Pantoprazole Sodium 20 mg 05/10/18 10:00 05/10/18 09:12 Protonix - PO 20 mg DAILY MARISOL Administration [id number] US/ABDOMEN US -LIMITED [id number] US/AORTA US HISTORY PROVIDED: Right upper quadrant pain, rule out AAA.. Real time examination of the abdomen demonstrates the following: The gallbladder is somewhat distended. It does contain echogenic material that may represent biliary sludge or possibly small calculi. There is a trace amount of pericholecystic fluid and the clinical data assistant describes a positive Saleh sign. This suggests acute cholecystitis. Clinical correlation is a size. A confirmatory HIDA scan is now recommended. There is no evidence of intra or extrahepatic biliary duct dilatation. The liver is normal in size and texture with no intrahepatic masses seen. The pancreas is normal in size and texture with no pancreatic masses identified. The tail of the pancreas was not completely visualized due to overlying bowel gas. There is no evidence of hydronephrosis or acute abnormalities of the right kidney. The abdominal aorta is somewhat ectatic. No significant aneurysmal dilatation is identified. IMPRESSION: 1. Distended gallbladder with possible small calculi and trace pericholecystic fluid. The clinical data assistant describes a positive Saleh's sign and acute cholecystitis cannot be excluded. Clinical correlation and follow-up recommended. Please see above discussion. 2. No evidence of AAA. ASSESSMENT/PLAN: 88 year old female with pmhx of HTN , Afib on eliquis and H/O DVT presented with one day history of med epigastric and RUQ abdominal pain and was found to have hypertensive urgency admitted for tele for further eval and treatment. # Abdominal pain Biliary colic R/O Acute cholecystits vs choledocholithisis - no clear sonographic evidence of obstructive gallstone disease CXR nl US abdomen - Distended gallbladder with possible small calculi and trace pericholecystic fluid. acute cholecystitis cannot be excluded. f/u HIDA Scan Monitoring off abx; if she becomes febrile or unstable will empirically cover f/u ucx, bcx IV fluids NS@ 42 cc/hr pain control Tylenol, Morphine NPO except meds Surgery consulted Dr Jose recommend no intervention at this point and medical management. Consider GI consult if Tbili is persistently elevated, starting to downtrend 2..1.8, elevated Direct bili of 1, trend CMP Consider IR for cholecystostomy PPI 20 daily for gerd hold NOAC therapy in anticipation of intervention # Hypertensive urgency 213/110 - resolved did not take her meds prior to admission home meds resumed # Afib - rate controlled Hold eliquis for now in anticipation of intervention #Chronic microcytosis -Monitor; no anemia. Consider OP iron studies and workup # Hypokalemia , hyponatremia - replenished # FEN NS @ 42 cc/hr replete prn NPO except meds, Low fat diet when diet is resumed # proph DvTS: Hep sq BID , SCDS GI: PPI 20 daily # Full code # Dispo transfer to med Surg Visit type - Emergency Visit Emergency Visit: Yes ED Registration Date: 05/09/18 Care time: The patient presented to the Emergency Department on the above date and was hospitalized for further evaluation of their emergent condition. - New Patient This patient is new to me today: Yes Date on this admission: 05/10/18 - Critical Care Critical Care patient: No
[2018-05-10] MEDS ORDERED: POTASSIUM CHLORIDE TABS 20 MEQ TABLET.ER (FP) PO ONE ×2 (11:48→19:32)
[2018-05-10] MEDS: KCL 10 MEQ IVPB 10 MEQ/100 ML INFUS.BAG IVPB SCH ×2 (12:46→12:47)
[2018-05-10 14:00] LABS: EPI CELLS 2.5 /HPF (0-5); HYALINE CASTS 14 /hpf (0-8); PH,URINE 6.5 (5.0-8.0); URINE APPEARANCE CLEAR; URINE BACTERIA 1.008 /hpf (NEGATIVE); URINE BILIRUBIN 1+ (<2.0 mg/dL); URINE COLOR DK YELLOW; URINE GLUCOSE (UA) NEGATIVE (NEGATIVE); URINE KETONE NEGATIVE (NEGATIVE); URINE LEUK ESTERASE 1+ (NEGATIVE); URINE NITRITE NEGATIVE (NEGATIVE); URINE PROTEIN 2+ (NEGATIVE); URINE RBC 4 /hpf (0-4); URINE WBC 11 /hpf (0-5)
[2018-05-10] MEDS ORDERED: MORPHINE SULFATE 2 MG/ML VIAL IVPUSH PRN (16:25)
--- NOTE | 2018-05-10 16:49 | PN ---
Teaching Attending Note Name of Resident: Roman Santos ATTENDING PHYSICIAN STATEMENT I saw and evaluated the patient. I reviewed the resident's note and discussed the case with the resident. I agree with the resident's findings and plan as documented. SUBJECTIVE:c/o RUQ pain does not improve with tylenol and does not want morphine. denies CP, SOB, fever, chills, N/V/C/D. has not had cardiac workup recently. able to perform her own ADL. had surgery 5 years ago for knee replacement. no complications with anesthesia OBJECTIVE: Last Vital Signs Temp Pulse Resp BP Pulse Ox 99 F 85 20 154/89 95 05/10/18 14:00 05/10/18 14:00 05/10/18 14:00 05/10/18 14:00 05/10/18 09:00 General NAD CV S1 S2 irregular Lungs CTA B/L no wheezing/rales/rhonchi Abdomen +RUQ pain no rebound or guarding Extremities no pedal edema ASSESSMENT AND PLAN: 88yo F wtih PMH afib on eliquis, DVT, HTN presented to the ER with RUQ pain after eating suggestive of biliary colic vs acute cholecystitis 1. Biliary colic- concern for choleodocholithasis. went for HIDA this am to r/o obstruction. will f/u results. bilirubin trending down. low suspicion for infection given afebrile and no leukocytosis but will start abx if HIDA is suggestive of it. cont NPO, IVF, pain control. will speak with surgeon about cholecystectomy vs choleostomy tube placement. 2. Hypokalmeia- KCl po and add to IVF 3. Hyponatremia- due to dehdyration. cont IVF 4. Hypomagnesemia- Mg po 5. Afib on eliquis- cont rate control. hold eliquis for possible intervention 6. HTN- slightly elevated likely due to pain. cont home regimen. adjust as needed 7. DVT ppx- hep sq. will re-start eliquis after no further interventions are planned 8. spoke with sons present at bedside. all questions answered. verbalized understanding and agreement with plan.
[2018-05-10] MEDS ORDERED: ACETAMINOPHEN 325 MG TABLET (FP) PO PRN (17:22)
[2018-05-10] MEDS ORDERED: DEXTROSE 5%-WATER - 50 ML IVPB ONE (17:25)
[2018-05-10] MEDS ORDERED: cefTRIAXone SODIUM 1 GM VIAL ONE (17:25)
[2018-05-10] MEDS: CEFTRIAXONE 1 GM in DEXTROSE 5%-WATER - 50 ML IVPB SCH (17:27)
[2018-05-10] MEDS ORDERED: SODIUM CHLORIDE 1,000 ML with POTASSIUM CHLORIDE 20 MEQ IVPB SCH (17:48)
[2018-05-10] MEDS ORDERED: POTASSIUM CHLORIDE ORAL LIQUID 20 MEQ/15 ML PO ONE (17:52)
[2018-05-10] MEDS: SODIUM CHLORIDE 0.9%/KCL 20 MEQ/1,000 ML INFUS.BAG IV SCH (18:29)
--- NOTE | 2018-05-10 19:04 | PN ---
Progress Note, Physician Chief Complaint: abdominal pain History of Present Illness: 88yo female HTN, DVT, Afib on Eloquis (05/09/2018 in AM) presented with one day history of med epigastric abdominal pain and RUQ pain , worsening with food , 8/ 10 radiated to right side of chest. She has improved but has had a positive HIDA. - Current Medication List Current Medications: Active Medications Acetaminophen (Tylenol -) 650 mg PO Q4H PRN PRN Reason: PAIN Acetaminophen (Tylenol -) 325 mg PO Q4H PRN PRN Reason: PAIN SCALE 7-10 Stop: 05/13/18 17:21 Amlodipine Besylate (Norvasc -) 2.5 mg PO DAILY [facility] Heparin Sodium (Porcine) (Heparin -) 5,000 unit SQ BID [facility] Ceftriaxone Sodium 1 gm/ (Dextrose) 50 mls @ 100 mls/hr IVPB DAILY [facility]; Protocol Last Admin: 05/10/18 17:27 Dose: 100 mls/hr Metronidazole (Flagyl 500mg Premixed Ivpb -) 500 mg in 100 mls @ 100 mls/hr IVPB Q8H-IV MARISOL Potassium Chloride/Sodium Chloride (Ns+20 Meq Kcl -) 20 meq in 1,000 mls @ 42 mls/hr IV ASDIR MARISOL Last Admin: 05/10/18 18:29 Dose: 42 mls/hr Losartan Potassium (Cozaar -) 100 mg PO DAILY [facility] Morphine Sulfate (Morphine Sulfate) 1 mg IVPUSH Q4H PRN PRN Reason: PAIN LEVEL 7 - 10 Oxycodone HCl (Roxicodone -) 5 mg PO Q4H PRN PRN Reason: PAIN SCALE 7-10 Pantoprazole Sodium (Protonix -) 20 mg PO DAILY [facility] - Objective Vital Signs: Vital Signs Temperature 99 F 05/10/18 14:00 Pulse Rate 85 05/10/18 14:00 Respiratory Rate 20 05/10/18 14:00 Blood Pressure 154/89 05/10/18 14:00 O2 Sat by Pulse Oximetry (%) 95 05/10/18 09:00 Constitutional: Yes: Well Nourished, No Distress, Calm Eyes: Yes: Conjunctiva Clear, EOM Intact HENT: Yes: Atraumatic, Normocephalic Neck: Yes: Supple, Trachea Midline Cardiovascular: Yes: Regular Rate and Rhythm, S1, S2 Respiratory: Yes: Regular, CTA Bilaterally Gastrointestinal: Yes: Normal Bowel Sounds, Soft, Tenderness ...Rectal Exam: Yes: Deferred Genitourinary: Yes: CVA Tenderness - Right. No: CVA Tenderness - Left Musculoskeletal: No: Muscle Pain, Muscle Weakness Extremities: No: Cool, Cyanosis Edema: No Peripheral Pulses WNL: Yes Peripheral Pulses: Left Radial: 2+, Right Radial: 2+, Left Doralis Pedis: 2+, Right Dorsalis Pedis: 2+, Left Femoral: 2+, Right Femoral: 2+ Neurological: Yes: Alert, Oriented Psychiatric: Yes: Alert, Oriented Labs: CBC, BMP 05/10/18 05:30 05/10/18 05:30 INR, PTT INR 1.29 (0.83-1.09) H 05/10/18 05:30 Problem List - Problems (1) Biliary colic Assessment/Plan: 88yo female MMP with abdominal pain after a meal, no leukocytosis, no fever, HIDA was positive. She has also had worsening of symptoms, persistent RUQ pain, still no norris's. Discussed option with the sons and daughter in law. The are leaning toward surgery. NPO and IVF hydration Repeat labs Cardiology optimization and risk stratification Plan for Lap Cholecystectomy Discussed with patient risks, benefits and alternatives of laparoscopic possible open cholecystectomy, including but not limited to bleeding, infection , injury to adjacent structures, leak or injury, intraabdominal abscess, incisional hernia, need for further procedures, ; alternatives include antibiotics, delayed or no surgery - risks of this include failure of nonoperative therapy, perforation, sepsis, recurrence, . Patient desires to proceed with operation - will take to OR for above. Informed consent signed for same. Thank you for the opportunity to participate in the care of this patient. Code(s): K80.50 - CALCULUS OF BILE DUCT W/O CHOLANGITIS OR CHOLECYST W/O OBST (2) Afib Code(s): I48.91 - UNSPECIFIED ATRIAL FIBRILLATION Qualifiers: Atrial fibrillation type: chronic Qualified Code(s): I48.2 - Chronic atrial fibrillation (3) HTN (hypertension) Code(s): I10 - ESSENTIAL (PRIMARY) HYPERTENSION Qualifiers: Hypertension type: essential hypertension Qualified Code(s): I10 - Essential (primary) hypertension (4) DVT prophylaxis Code(s): QLJ6182 -
[2018-05-10] MEDS: HEPARIN NA (PORCINE) 5,000 UNITS/ML 1ML VIAL SQ SCH (21:30)
[2018-05-10 21:57] LABS: MAGNESIUM 2.2 mg/dL (1.8-2.4); POTASSIUM 3.7 mmol/L (3.5-5.1)
--- NOTE | 2018-05-11 07:26 | PN ---
Physical Exam: SUBJECTIVE: Patient seen and examined at bedside. no acute events overnight. c/ o abd pain but mildly improved w/ meds. denies fever, chill, cp, sob, n/v/d, urinary sxs. +HIDA suspicious for cystic duct obstruction and acute cholecystitis. Surgery on board, possible lap bailee today OBJECTIVE: Vital Signs Period Temp Pulse Resp BP Sys/Butterfield Pulse Ox Last 24 Hr 97.8 F-99.3 F 85-92 18-20 110-156/78-96 95-96 GENERAL: AAO3 , nad HEAD: NCAT EYES:ALKA, EOMI , sclera an icteric ENT: MMM NECK: supple LUNGS: CTAB HEART: irregulary irregular , normal S1 and S2 2-3 /6 systolic murmur LUSB, No rub or gallop. ABDOMEN: Soft, mid epigastric and RUQ tenderness , not distended, hypoactive bowel sounds LOWER EXTREMITIES: 2+ pulses, warm, well-perfused. No calf tenderness. No peripheral edema. NEUROLOGICAL: Cranial nerves II-XII intact. Normal speech. PSYCHIATRIC: Cooperative. SKIN: Warm, dry, normal turgor, keratosis mall on LUQ of her abdomen Laboratory Results - last 24 hr 05/10/18 05/10/18 05/10/18 05:30 05:30 05:30 WBC 10.2 H RBC 6.22 H Hgb 14.5 Hct 44.0 MCV 70.8 L MCH 23.3 L MCHC 32.9 RDW 16.0 H Plt Count 196 MPV 9.1 Absolute Neuts (auto) 7.4 Neutrophils % 73.1 Lymphocytes % 18.1 Monocytes % 8.7 Eosinophils % 0.0 Basophils % 0.1 Nucleated RBC % 0 PT with INR 15.30 H INR 1.29 H PTT (Actin FS) 40.6 H Sodium 134 L Potassium 3.2 L Chloride 96 L Carbon Dioxide 29 Anion Gap 9 BUN 9 Creatinine 0.7 Creat Clearance w eGFR 78.97 Random Glucose 117 H Hemoglobin A1c % Calcium 8.3 L Phosphorus 2.7 Magnesium 1.7 L Total Bilirubin 1.8 H Direct Bilirubin 1.0 H AST 57 H ALT 50 Alkaline Phosphatase 116 B-Natriuretic Peptide 2456.0 H Total Protein 7.7 Albumin 3.1 L Total Amylase 95 Lipase 150 Urine Color Urine Appearance Urine pH Ur Specific [place] Urine Protein Urine Glucose (UA) Urine Ketones Urine Blood Urine Nitrite Urine Bilirubin Urine Urobilinogen Ur Leukocyte Esterase Urine WBC (Auto) Urine RBC (Auto) Urine Casts (Auto) U Epithel Cells (Auto) Urine Crystals (Auto) Urine Bacteria (Auto) Blood Type Antibody Screen 05/10/18 05/10/18 05/10/18 05:30 07:45 12:00 WBC RBC Hgb Hct MCV MCH MCHC RDW Plt Count MPV Absolute Neuts (auto) Neutrophils % Lymphocytes % Monocytes % Eosinophils % Basophils % Nucleated RBC % PT with INR INR PTT (Actin FS) Sodium Potassium Chloride Carbon Dioxide Anion Gap BUN Creatinine Creat Clearance w eGFR Random Glucose Hemoglobin A1c % 5.5 Calcium Phosphorus Magnesium Total Bilirubin Direct Bilirubin AST ALT Alkaline Phosphatase B-Natriuretic Peptide Total Protein Albumin Total Amylase Lipase Urine Color Dk yellow Urine Appearance Clear Urine pH 6.5 Ur Specific [place] 1.020 Urine Protein 2+ Urine Glucose (UA) Negative Urine Ketones Negative Urine Blood Negative Urine Nitrite Negative Urine Bilirubin 1+ H Urine Urobilinogen 1.0 Ur Leukocyte Esterase 1+ Urine WBC (Auto) 11 Urine RBC (Auto) 4 Urine Casts (Auto) 14 U Epithel Cells (Auto) 2.5 Urine Crystals (Auto) No Result Required. Urine Bacteria (Auto) 1.008 Blood Type O NEGATIVE Antibody Screen Negative 05/10/18 05/10/18 13:00 20:50 WBC RBC Hgb Hct MCV MCH MCHC RDW Plt Count MPV Absolute Neuts (auto) Neutrophils % Lymphocytes % Monocytes % Eosinophils % Basophils % Nucleated RBC % PT with INR INR PTT (Actin FS) Sodium Potassium 3.7 Chloride Carbon Dioxide Anion Gap BUN Creatinine Creat Clearance w eGFR Random Glucose Hemoglobin A1c % Calcium Phosphorus Magnesium 2.2 Total Bilirubin Direct Bilirubin AST ALT Alkaline Phosphatase B-Natriuretic Peptide Total Protein Albumin Total Amylase Lipase Urine Color Urine Appearance Urine pH Ur Specific [place] Urine Protein Urine Glucose (UA) Urine Ketones Urine Blood Urine Nitrite Urine Bilirubin Urine Urobilinogen Ur Leukocyte Esterase Urine WBC (Auto) Urine RBC (Auto) Urine Casts (Auto) U Epithel Cells (Auto) Urine Crystals (Auto) Urine Bacteria (Auto) Blood Type O NEGATIVE Antibody Screen Active Medications Generic Name Dose Route Start Last Admin Trade Name Freq PRN Reason Stop Dose Admin Acetaminophen 650 mg 05/10/18 16:25 Tylenol - PO Q4H PRN PAIN Acetaminophen 325 mg 05/10/18 17:22 Tylenol - PO 05/13/18 17:21 Q4H PRN PAIN SCALE 7-10 Amlodipine Besylate 2.5 mg 05/11/18 10:00 Norvasc - PO DAILY [facility] Heparin Sodium (Porcine) 5,000 unit 05/10/18 22:00 05/10/18 21:30 Heparin - SQ 5,000 unit BID MARISOL Administration Ceftriaxone Sodium 1 gm/ 50 mls @ 100 mls/hr 05/10/18 17:00 05/10/18 17:27 Dextrose IVPB 100 mls/hr DAILY MARISOL Administration Protocol Metronidazole 500 mg in 100 mls @ 100 mls/hr 05/10/18 18:00 05/11/18 02:33 Flagyl 500mg Premixed Ivpb - IVPB 100 mls/hr Q8H-IV MARISOL Administration Potassium Chloride/Sodium Chloride 20 meq in 1,000 mls @ 42 mls/hr 05/10/18 18 :30 05/10/18 18:29 Ns+20 Meq Kcl - IV 42 mls/hr ASDIR MARISOL Administration Losartan Potassium 100 mg 05/11/18 10:00 Cozaar - PO DAILY [facility] Morphine Sulfate 1 mg 05/10/18 16:25 Morphine Sulfate IVPUSH Q4H PRN PAIN LEVEL 7 - 10 Oxycodone HCl 5 mg 05/10/18 17:22 Roxicodone - PO Q4H PRN PAIN SCALE 7-10 Pantoprazole Sodium 20 mg 05/11/18 10:00 Protonix - PO DAILY [facility] [id number] US/ABDOMEN US -LIMITED [id number] US/AORTA US HISTORY PROVIDED: Right upper quadrant pain, rule out AAA.. Real time examination of the abdomen demonstrates the following: The gallbladder is somewhat distended. It does contain echogenic material that may represent biliary sludge or possibly small calculi. There is a trace amount of pericholecystic fluid and the manager photo describes a positive Saleh sign. This suggests acute cholecystitis. Clinical correlation is a size. A confirmatory HIDA scan is now recommended. There is no evidence of intra or extrahepatic biliary duct dilatation. The liver is normal in size and texture with no intrahepatic masses seen. The pancreas is normal in size and texture with no pancreatic masses identified. The tail of the pancreas was not completely visualized due to overlying bowel gas. There is no evidence of hydronephrosis or acute abnormalities of the right kidney. The abdominal aorta is somewhat ectatic. No significant aneurysmal dilatation is identified. IMPRESSION: 1. Distended gallbladder with possible small calculi and trace pericholecystic fluid. The manager photo describes a positive Saleh's sign and acute cholecystitis cannot be excluded. Clinical correlation and follow-up recommended. Please see above discussion. 2. No evidence of AAA. [id number] NM/HIDA SCAN HIDA SCAN CLINICAL INDICATION: 88-year-old female with biliary colic TECHNIQUE: Following the intravenous administration of 6.6 mCi of Tc 99M of Choletec, dynamic images of the abdomen in the anterior projection were obtained through 120minutes. COMPARISON: Ultrasound of the abdomen dated May 09, 2018. FINDINGS: There is normal homogeneous perfusion of the liver with no evidence of focal lesion. Extraction of tracer from the blood pool by the liver parenchyma is normal. Tracer appears promptly and within the biliary tree. The gallbladder does not fill with tracer after 2 hours of imaging. Tracer in the small bowel is first seen at 15minutes. There is near- total biliary enteric transit of tracer x 2 h of imaging with no tracer seen in the liver or biliary tree IMPRESSION: No filling of the gallbladder after 2 hours of imaging. When correlated with ultrasound of the abdomen dated May 09, 2018, findings are suspicious for cystic duct obstruction and acute cholecystitis. ASSESSMENT/PLAN: 88 yo F with pmhx of HTN , Afib on eliquis and H/O DVT presented with one day history of epigastric and RUQ abdominal pain and was found to have hypertensive urgency admitted for tele for further eval and treatment. +HIDA suspicious for acute cholecystitis, going for lap bailee # Biliary colic with acute cholecystitis - CXR nl US abdomen - Distended gallbladder with possible small calculi and trace pericholecystic fluid. acute cholecystitis cannot be excluded. +HIDA suspicious for cystic duct obstruction and acute cholecystitis. Surgery on board, possible lap bailee today started CTX/Flagyl on 05/10/18 given HIDA scan findings ucx, bcx neg IV fluids NS+20meq K@ 42 cc/hr pain control Tylenol, Morphine NPO for lap cholecystectomy today PPI 20 daily for gerd hold NOAC therapy in anticipation of intervention cardio clearance appreciated Incentive spirometer for post op # Hypertensive urgency 213/110 - resolved did not take her meds prior to admission home meds resumed # Afib - rate controlled Hold eliquis and re-start when cleared by surgery #Chronic microcytosis -Monitor; no anemia. Consider OP iron studies and workup # Hypokalemia , hyponatremia - replenished # FEN NS+20meq K@ 42 cc/hr replete prn NPO except meds, Low fat diet when diet is resumed # proph DvTS: hold Hep sq BID for possible lap bailee today , SCDS, will likely re-start eliquis after no further interventions are planned GI: PPI 20 daily # Full code # Dispo transfer to med Surg +HIDA suspicious for cystic duct obstruction and acute cholecystitis. Surgery on board, possible lap bailee today Visit type - Emergency Visit Emergency Visit: Yes ED Registration Date: 05/09/18 Care time: The patient presented to the Emergency Department on the above date and was hospitalized for further evaluation of their emergent condition. - New Patient This patient is new to me today: Yes Date on this admission: 05/11/18 - Critical Care Critical Care patient: No
[2018-05-11 07:27] LABS: BASO % 0.2 % (0-2.0); EOS % 0.1 % (0-4.5); HEMOGLOBIN 13.8 GM/dL (10.7-15.3); LYMPH % 23.3 % (8-40); MCH 23.4 pg (25.7-33.7); MCHC 32.8 g/dl (32.0-36.0); MEAN CELL VOLUME 71.2 fl (80-96); MEAN PLT VOLUME 9.1 fl (7.5-11.1); NEUT % 66.4 % (42.8-82.8); PLATELET COUNT 180 K/MM3 (134-434); RDW 16.2 % (11.6-15.6); WHITE BLOOD COUNT 10.4 K/mm3 (4.0-10.0)
[2018-05-11 08:11] LABS: INR 1.32 (0.83-1.09); PROTHROMBIN TIME (PATIENT) 15.6 SEC (9.7-13.0)
[2018-05-11 08:19] LABS: ALBUMIN 2.6 g/dl (3.4-5.0); ALK PHOS 93 U/L (45-117); ANION GAP 7 MMOL/L (8-16); BILIRUBIN,TOTAL 1.5 mg/dL (0.2-1); BLOOD UREA NITROGEN 18 mg/dL (7-18); CALCIUM 8.1 mg/dL (8.5-10.1); CHLORIDE 105 mmol/L (98-107); CO2 24 mmol/L (21-32); CREATININE 0.6 mg/dL (0.55-1.3); GLUCOSE,RANDOM 96 mg/dL (74-106); MAGNESIUM 2.2 mg/dL (1.8-2.4); PHOSPHOROUS 1.9 mg/dL (2.5-4.9); POTASSIUM 4.2 mmol/L (3.5-5.1); SGOT/AST 40 U/L (15-37); SGPT/ALT 37 U/L (13-61); SODIUM 136 mmol/L (136-145); TOT PROT 6.9 g/dl (6.4-8.2)
[2018-05-11] MEDS ORDERED: cefTRIAXone SODIUM 1 GM VIAL ONE (09:30)
[2018-05-11] MEDS ORDERED: DEXTROSE 5%-WATER - 50 ML IVPB ONE (09:31)
[2018-05-11] MEDS: CEFTRIAXONE 1 GM in DEXTROSE 5%-WATER - 50 ML IVPB SCH (09:46)
[2018-05-11] MEDS: amLODIPine BESYLATE 2.5 MG TABLET (FP) PO SCH (09:46)
[2018-05-11] MEDS: PANTOPRAZOLE 20 MG TABLET (FP) PO SCH (09:47)
[2018-05-11] MEDS: LOSARTAN POTASSIUM 50 MG TABLET (FP) PO SCH (09:47)
[2018-05-11] MEDS ORDERED: HYDROCHLOROTHIAZIDE 12.5 MG CAPSULE (FP) PO SCH (10:00)
--- NOTE | 2018-05-11 11:17 | CON.CARD ---
Cardiology Consult (text) - Consultation Consultation Note: cc: abd pain hpi: 88 f hx htn, afib, here with abd pain. No cp sob palps dizzy loc pnd orthopnea le edema. Found to have acute bailee, plans for OR today. pmh: per hpi psh: b/l TKR social: no tobacco fam: non contrib ros: per hpi; no n/v/d, fever gib hematuria vision changes; all others normal meds: Home Medications Medication Instructions Recorded Bifidobacterium Infantis [Align] 10.5 mg PO DAILY 05/09/18 Losartan/Hydrochlorothiazide 1 each PO DAILY 05/09/18 [Losartan-Hctz 100-12.5 mg Tab] Alprazolam 0.25 mg PO DAILY 05/10/18 Amlodipine Besylate 2.5 mg PO DAILY 05/10/18 pe: Vital Signs Period Temp Pulse Resp BP Sys/Butterfield Pulse Ox Last 24 Hr 98.1 F-99.3 F 85-105 18-20 140-156/84-96 96 nad, no jvd irreg s1s2 no mrg cta b/l, nl eff aaox3 no le e/c/c abd nd pos bs, mild ruq abd tender pos dp/pt no diaphoresis/jaundice Laboratory Last Values WBC 10.4 K/mm3 (4.0-10.0) H 05/11/18 06:35 RBC 5.90 M/mm3 (3.60-5.2) H 05/11/18 06:35 Hgb 13.8 GM/dL (10.7-15.3) 05/11/18 06:35 Hct 42.0 % (32.4-45.2) 05/11/18 06:35 MCV 71.2 fl (80-96) L 05/11/18 06:35 MCH 23.4 pg (25.7-33.7) L 05/11/18 06:35 MCHC 32.8 g/dl (32.0-36.0) 05/11/18 06:35 RDW 16.2 % (11.6-15.6) H 05/11/18 06:35 Plt Count 180 K/MM3 (134-434) 05/11/18 06:35 MPV 9.1 fl (7.5-11.1) 05/11/18 06:35 Absolute Neuts (auto) 6.9 K/mm3 (1.5-8.0) 05/11/18 06:35 Neutrophils % 66.4 % (42.8-82.8) 05/11/18 06:35 Lymphocytes % 23.3 % (8-40) D 05/11/18 06:35 Monocytes % 10.0 % (3.8-10.2) 05/11/18 06:35 Eosinophils % 0.1 % (0-4.5) D 05/11/18 06:35 Basophils % 0.2 % (0-2.0) 05/11/18 06:35 Nucleated RBC % 0 % (0-0) 05/11/18 06:35 PT with INR 15.60 SEC (9.7-13.0) H 05/11/18 06:35 INR 1.32 (0.83-1.09) H 05/11/18 06:35 PTT (Actin FS) 40.6 SECONDS (25.2-36.5) H 05/10/18 05:30 Sodium 136 mmol/L (136-145) 05/11/18 06:35 Potassium 4.2 mmol/L (3.5-5.1) 05/11/18 06:35 Chloride 105 mmol/L (98-107) 05/11/18 06:35 Carbon Dioxide 24 mmol/L (21-32) 05/11/18 06:35 Anion Gap 7 MMOL/L (8-16) L 05/11/18 06:35 BUN 18 mg/dL (7-18) 05/11/18 06:35 Creatinine 0.6 mg/dL (0.55-1.3) 05/11/18 06:35 Creat Clearance w eGFR 94.35 (>60) 05/11/18 06:35 Random Glucose 96 mg/dL (74-106) 05/11/18 06:35 Hemoglobin A1c % 5.5 % (4.2-6.3) 05/10/18 12:00 Lactic Acid 1.6 mmol/L (0.4-2.0) 05/09/18 11:30 Calcium 8.1 mg/dL (8.5-10.1) L 05/11/18 06:35 Phosphorus 1.9 mg/dL (2.5-4.9) L 05/11/18 06:35 Magnesium 2.2 mg/dL (1.8-2.4) 05/11/18 06:35 Total Bilirubin 1.5 mg/dL (0.2-1) H 05/11/18 06:35 Direct Bilirubin 1.0 mg/dL (0.0-0.2) H 05/10/18 05:30 AST 40 U/L (15-37) H 05/11/18 06:35 ALT 37 U/L (13-61) 05/11/18 06:35 Alkaline Phosphatase 93 U/L (45-117) 05/11/18 06:35 Creatine Kinase 60 U/L (26-192) 05/09/18 11:30 Troponin I 0.03 ng/ml (0.00-0.05) 05/09/18 23:00 B-Natriuretic Peptide 2456.0 pg/ml (5-450) H 05/10/18 05:30 Total Protein 6.9 g/dl (6.4-8.2) 05/11/18 06:35 Albumin 2.6 g/dl (3.4-5.0) L 05/11/18 06:35 Total Amylase 95 U/L (25-115) 05/10/18 05:30 Lipase 150 U/L (73-393) 05/10/18 05:30 Urine Color Dk yellow 05/10/18 07:45 Urine Appearance Clear 05/10/18 07:45 Urine pH 6.5 (5.0-8.0) 05/10/18 07:45 Ur Specific [place] 1.020 (1.010-1.035) 05/10/18 07:45 Urine Protein 2+ (NEGATIVE) 05/10/18 07:45 Urine Glucose (UA) Negative (NEGATIVE) 05/10/18 07:45 Urine Ketones Negative (NEGATIVE) 05/10/18 07:45 Urine Blood Negative (NEGATIVE) 05/10/18 07:45 Urine Nitrite Negative (NEGATIVE) 05/10/18 07:45 Urine Bilirubin 1+ (<2.0 mg/dL) H 05/10/18 07:45 Urine Urobilinogen 1.0 mg/dL (0.2-1.0) 05/10/18 07:45 Ur Leukocyte Esterase 1+ (NEGATIVE) 05/10/18 07:45 Urine WBC (Auto) 11 /hpf (0-5) 05/10/18 07:45 Urine RBC (Auto) 4 /hpf (0-4) 05/10/18 07:45 Urine Casts (Auto) 14 /hpf (0-8) 05/10/18 07:45 U Epithel Cells (Auto) 2.5 /HPF (0-5) 05/10/18 07:45 Urine Crystals (Auto) No Result Required. 05/10/18 07:45 Urine Bacteria (Auto) 1.008 /hpf (NEGATIVE) 05/10/18 07:45 Blood Type O NEGATIVE 05/10/18 13:00 Antibody Screen Negative 05/10/18 05:30 echo 12/03: nl lv s/f, nl rv s/f, nl atria size, nl rvsp, no sig valve path cxr: no sig chf tele: afib, vr in 70s ecg: afib, rate ok, no ischemic changes a/p: 88 f hx htn, afib, here with abd pain. acute bailee, preop: -surgery following, plans for OR today -no cardiac contraindications (intermediate risk) to planned cholecystectomy -can hold AC as doing and resume eliquis post op when possible -heart rate is controlled w/o meds but can use iv lopressor if has rvr while npo afib: -rate controlled off meds -on eliquis at home, resume post op when possible htn: -stable, cont home meds when taking PO
[2018-05-11] MEDS: ACETAMINOPHEN 325 MG TABLET (FP) PO PRN ×2 (11:31→22:29)
[2018-05-11] MEDS: oxyCODONE HCL 5 MG TABLET PO PRN (11:31)
[2018-05-11] MEDS ORDERED: SODIUM PHOSPHATE - 15 MM in SODIUM CHLORIDE 250 ML IVPB ONE (12:00)
[2018-05-11] MEDS ORDERED: PROPOFOL 20 ML ONE ×3 (12:24→15:47)
[2018-05-11] MEDS ORDERED: ROCURONIUM BROMIDE 50 MG/5 ML VIAL ONE ×2 (12:24→15:11)
[2018-05-11] MEDS ORDERED: MIDAZOLAM HCL 2 MG/2 ML SINGLE DOSE VIAL ONE (12:24)
[2018-05-11] MEDS ORDERED: fentaNYL CITRATE 250 MCG/5 ML VIAL ONE ×2 (12:24→15:11)
--- NOTE | 2018-05-11 12:29 | PN ---
Teaching Attending Note Name of Resident: Roman Santos ATTENDING PHYSICIAN STATEMENT I saw and evaluated the patient. I reviewed the resident's note and discussed the case with the resident. I agree with the resident's findings and plan as documented. SUBJECTIVE:continues to have RUQ pain. denies CP, SOB, fever, chills, N/V/C/D OBJECTIVE: Last Vital Signs Temp Pulse Resp BP Pulse Ox 98.7 F 89 18 148/95 96 05/11/18 10:00 05/11/18 10:00 05/11/18 10:00 05/11/18 10:00 05/10/18 21:00 General NAD CV S1 S2 irregular Lungs CTA B/L no wheezing/rales/rhonchi Abdomen +RUQ pain no rebound or guarding Extremities no pedal edema ASSESSMENT AND PLAN: 88yo F wtih PMH afib on eliquis, DVT, HTN presented to the ER with RUQ pain after eating suggestive of biliary colic vs acute cholecystitis 1. Biliary colic- with acute cholecystitis. NPO for lap cholecystectomy today. cardio clearance appreciated. cont NPO, IVF, pain control. f/u operative report. 2. Hypokalmeia- resolved 3. Hyponatremia- due to dehdyration. resolved 4. Hypomagnesemia- resolved 5. Afib on eliquis- cont rate control. hold eliquis and re-start when cleared by surgery 6. HTN- slightly elevated likely due to pain. cont home regimen. adjust as needed 7. DVT ppx- hep sq. will re-start eliquis after no further interventions are planned
[2018-05-11] MEDS ORDERED: BUPIVACAINE HCL/PF 0.5% (5MG/ML) 10 ML VIAL ONE (15:26)
[2018-05-11] MEDS ORDERED: BUPIVACAINE HCL/PF (5 MG/ML) 30 ML VIAL IJ ONE (16:24)
[2018-05-11] MEDS ORDERED: PROMETHAZINE HCL 25 MG/1 ML VIAL IVPUSH PRN (16:31)
[2018-05-11] MEDS ORDERED: ONDANSETRON 4 MG/2 ML VIAL IVPUSH PRN (16:31)
--- NOTE | 2018-05-11 16:42 | SURG ---
Surgery Mixer Operator Helper [employer] Note [employer]er [employer]: Khris Parks PA-C Date of Service: 05/11/18 Diagnosis: Acute cholecystitis Procedure: Exploratory laparoscopy, cholecystostomy tube placement I was present for the entirety of the operative procedure. For further detail, please refer to operative report. Visit type - Case Type Case Type: ED Admission - Emergency Emergency Visit: Yes ED Registration Date: 05/09/18 Care time: The patient presented to the Emergency Department on the above date and was hospitalized for further evaluation of their emergent condition. - New patient This patient is new to me today: Yes Date on this admission: 05/11/18
[2018-05-11] MEDS ORDERED: LACTATED RINGERS SOLUTION 1,000 ML IV SCH (16:45)
--- NOTE | 2018-05-11 16:52 | OP ---
Operative Note - Note: Operative Date: 05/11/18 Pre-Operative Diagnosis: Acute Cholecystitis Operation: Diagnostic Laparoscopy, Placement of a cholecystostomy tube Findings: Friable cirrhotic liver, large distended gall bladder. after establishing pneumoperitonieum bp was 190/140 and refractory to medication. Decision was made to place a cholecystostomy as a temporizing measure and abort with further dissection. Implants: 10 Fr cholecystostomy Post-Operative Diagnosis: Same as Pre-op Surgeon: Jason Jose Linotype Worker: Khris Parks Anesthesia: General, Local Estimated Blood Loss (mls): 5 Drains & Tubes with Location: Cholecystostomy RUQ Drains, Volume Out (mls): 275 (green bile) Fluid Volume Replaced (mls): 700
[2018-05-11] MEDS: SODIUM CHLORIDE 0.9%/KCL 20 MEQ/1,000 ML INFUS.BAG IV SCH (19:34)
[2018-05-12 08:18] LABS: ALBUMIN 2.5 g/dl (3.4-5.0); ALK PHOS 87 U/L (45-117); ANION GAP 6 MMOL/L (8-16); BLOOD UREA NITROGEN 19 mg/dL (7-18); CALCIUM 8.3 mg/dL (8.5-10.1); CHLORIDE 104 mmol/L (98-107); CO2 27 mmol/L (21-32); CREATININE 0.8 mg/dL (0.55-1.3); GLUCOSE,RANDOM 78 mg/dL (74-106); MAGNESIUM 2.1 mg/dL (1.8-2.4); PHOSPHOROUS 2.5 mg/dL (2.5-4.9); POTASSIUM 3.9 mmol/L (3.5-5.1); SGOT/AST 31 U/L (15-37); SGPT/ALT 31 U/L (13-61); SODIUM 138 mmol/L (136-145); TOT PROT 6.8 g/dl (6.4-8.2)
[2018-05-12 08:23] LABS: BASO % 0.3 % (0-2.0); EOS % 0.9 % (0-4.5); HEMATOCRIT 38.6 % (32.4-45.2); HEMOGLOBIN 12.5 GM/dL (10.7-15.3); LYMPH % 33.3 % (8-40); MCH 23.3 pg (25.7-33.7); MCHC 32.3 g/dl (32.0-36.0); MEAN PLT VOLUME 8.8 fl (7.5-11.1); MONO % 7.5 % (3.8-10.2); PLATELET COUNT 195 K/MM3 (134-434); RBC 5.37 M/mm3 (3.60-5.2); RDW 16.3 % (11.6-15.6); WHITE BLOOD COUNT 9.1 K/mm3 (4.0-10.0)
[2018-05-12] MEDS ORDERED: DEXTROSE 5%-WATER - 50 ML IVPB ONE (09:53)
[2018-05-12] MEDS ORDERED: cefTRIAXone SODIUM 1 GM VIAL ONE (09:53)
[2018-05-12] MEDS: amLODIPine BESYLATE 2.5 MG TABLET (FP) PO SCH (09:58)
[2018-05-12] MEDS: LOSARTAN POTASSIUM 50 MG TABLET (FP) PO SCH (09:58)
[2018-05-12] MEDS: HEPARIN NA (PORCINE) 5,000 UNITS/ML 1ML VIAL SQ SCH ×2 (09:59→22:11)
[2018-05-12] MEDS: PANTOPRAZOLE 20 MG TABLET (FP) PO SCH (09:59)
--- NOTE | 2018-05-12 10:04 | PN ---
Progress Note (short form) - Note Progress Note: Post op day#1.S/P Chlecystostomy under GA uneventful.Patient stable.No any anesthesia related problem.Patient Dc from the anesthesia care.
--- NOTE | 2018-05-12 10:12 | PN ---
Progress Note (short form) - Note Progress Note: s: no chest pain, palps, dizziness. complains of abd pain. had attempted cholecystectomy yesterday, BP 190/140 which did not improve with meds, procedure was aborted and changed to cholecystostomy Current Medications Acetaminophen (Tylenol -) 650 mg PO Q4H PRN PRN Reason: PAIN Last Admin: 05/11/18 22:29 Dose: 650 mg Acetaminophen (Tylenol -) 325 mg PO Q4H PRN PRN Reason: PAIN SCALE 7-10 Stop: 05/13/18 17:21 Amlodipine Besylate (Norvasc -) 2.5 mg PO DAILY [facility] Last Admin: 05/12/18 09:58 Dose: 2.5 mg Fentanyl (Sublimaze Injection -) 50 mcg IVPUSH [id number] PRN PRN Reason: PAIN-PACU ORDER X 4 DOSES ONLY Heparin Sodium (Porcine) (Heparin -) 5,000 unit SQ BID [facility] Last Admin: 05/12/18 09:59 Dose: 5,000 unit Ceftriaxone Sodium 1 gm/ (Dextrose) 50 mls @ 100 mls/hr IVPB DAILY [facility]; Protocol Last Admin: 05/11/18 09:46 Dose: 100 mls/hr Metronidazole (Flagyl 500mg Premixed Ivpb -) 500 mg in 100 mls @ 100 mls/hr IVPB Q8H-IV [facility] Last Admin: 05/12/18 10:01 Dose: 100 mls/hr Losartan Potassium (Cozaar -) 100 mg PO DAILY [facility] Last Admin: 05/12/18 09:58 Dose: 100 mg Morphine Sulfate (Morphine Sulfate) 1 mg IVPUSH Q4H PRN PRN Reason: PAIN LEVEL 7 - 10 Ondansetron HCl (Zofran Injection) 4 mg IVPUSH Q6H PRN PRN Reason: NAUSEA AND/OR VOMITING Oxycodone HCl (Roxicodone -) 5 mg PO Q4H PRN PRN Reason: PAIN SCALE 7-10 Last Admin: 05/11/18 11:31 Dose: 5 mg Pantoprazole Sodium (Protonix -) 20 mg PO DAILY [facility] Last Admin: 05/12/18 09:59 Dose: 20 mg Promethazine HCl (Phenergan Injection -) 12.5 mg IVPUSH Q6H PRN PRN Reason: NAUSEA-FOR RESCUE AFTER 15 MIN pe: Vital Signs Period Temp Pulse Resp BP Sys/Butterfield Pulse Ox Last 24 Hr 97.6 F-98.9 F 71-78 12-20 97-137/59-96 95-100 nad, no jvd irreg s1s2 no mrg cta b/l, nl eff aaox3 no le e/c/c abd nd pos bs, mild ruq abd tender pos dp/pt no diaphoresis/jaundice echo 12/03: nl lv s/f, nl rv s/f, nl atria size, nl rvsp, no sig valve path cxr: no sig chf tele: afib, vr in 70s ecg: afib, rate ok, no ischemic changes a/p: 88 f hx htn, afib, here with abd pain. acute bailee, s/p cholecystostomy - cholecystectomy aborted due to hypertension - now s/p cholecystostomy tube - plan per surgery - resume eliquis post op when possible afib: -rate controlled off meds -on eliquis at home, resume post op when possible htn: -stable, cont home meds
--- NOTE | 2018-05-12 10:39 | PN ---
Progress Note (short form) - Note Progress Note: c/o hunger. states she needs more to eat. denies CP, SOB, fever, chills, N/V/C/D Current Medications Generic Name Dose Route Start Last Admin Trade Name Freq PRN Reason Stop Dose Admin Acetaminophen 650 mg 05/10/18 16:25 05/11/18 22:29 Tylenol - PO 650 mg Q4H PRN Administration PAIN Acetaminophen 325 mg 05/10/18 17:22 Tylenol - PO 05/13/18 17:21 Q4H PRN PAIN SCALE 7-10 Amlodipine Besylate 2.5 mg 05/11/18 10:00 05/12/18 09:58 Norvasc - PO 2.5 mg DAILY [facility] Administration Fentanyl 50 mcg 05/11/18 16:31 Sublimaze Injection - IVPUSH [id number] PRN PAIN-PACU ORDER X 4 DOSES ONLY Heparin Sodium (Porcine) 5,000 unit 05/10/18 22:00 05/12/18 09:59 Heparin - SQ 5,000 unit BID [facility] Administration Ceftriaxone Sodium 1 gm/ 50 mls @ 100 mls/hr 05/10/18 17:00 05/11/18 09:46 Dextrose IVPB 100 mls/hr DAILY [facility] Administration Protocol Metronidazole 500 mg in 100 mls @ 100 mls/hr 05/10/18 18:00 05/12/18 10:01 Flagyl 500mg Premixed Ivpb - IVPB 100 mls/hr Q8H-IV [facility] Administration Losartan Potassium 100 mg 05/11/18 10:00 05/12/18 09:58 Cozaar - PO 100 mg DAILY [facility] Administration Morphine Sulfate 1 mg 05/10/18 16:25 Morphine Sulfate IVPUSH Q4H PRN PAIN LEVEL 7 - 10 Ondansetron HCl 4 mg 05/11/18 16:31 Zofran Injection IVPUSH Q6H PRN NAUSEA AND/OR VOMITING Oxycodone HCl 5 mg 05/10/18 17:22 05/11/18 11:31 Roxicodone - PO 5 mg Q4H PRN Administration PAIN SCALE 7-10 Pantoprazole Sodium 20 mg 05/11/18 10:00 05/12/18 09:59 Protonix - PO 20 mg DAILY [facility] Administration Promethazine HCl 12.5 mg 05/11/18 16:31 Phenergan Injection - IVPUSH Q6H PRN NAUSEA-FOR RESCUE AFTER 15 MIN Last Vital Signs Temp Pulse Resp BP Pulse Ox 98.1 F 78 20 137/96 96 05/12/18 06:33 05/12/18 06:33 05/12/18 06:33 05/12/18 06:33 05/11/18 21:00 Intake & Output 05/09/18 05/10/18 05/11/18 05/12/18 23:59 23:59 23:59 23:59 Intake Total 551 147 4464 Output Total 1 305 20 Balance 568 526 3346 -20 Weight 169 lb General NAD CV S1 S2 irregular Lungs CTA B/L no wheezing/rales/rhonchi Abdomen diffuse tenderness. +cholecystostomy in RUQ. surgical incisions with good approximation Extremities no pedal edema CBCD WBC 9.1 K/mm3 (4.0-10.0) 05/12/18 06:30 RBC 5.37 M/mm3 (3.60-5.2) H 05/12/18 06:30 Hgb 12.5 GM/dL (10.7-15.3) 05/12/18 06:30 Hct 38.6 % (32.4-45.2) 05/12/18 06:30 MCV 72.0 fl (80-96) L 05/12/18 06:30 MCHC 32.3 g/dl (32.0-36.0) 05/12/18 06:30 RDW 16.3 % (11.6-15.6) H 05/12/18 06:30 Plt Count 195 K/MM3 (134-434) 05/12/18 06:30 MPV 8.8 fl (7.5-11.1) 05/12/18 06:30 CMP Sodium 138 mmol/L (136-145) 05/12/18 06:30 Potassium 3.9 mmol/L (3.5-5.1) 05/12/18 06:30 Chloride 104 mmol/L (98-107) 05/12/18 06:30 Carbon Dioxide 27 mmol/L (21-32) 05/12/18 06:30 Anion Gap 6 MMOL/L (8-16) L 05/12/18 06:30 BUN 19 mg/dL (7-18) H 05/12/18 06:30 Creatinine 0.8 mg/dL (0.55-1.3) 05/12/18 06:30 Creat Clearance w eGFR 67.69 (>60) 05/12/18 06:30 Calcium 8.3 mg/dL (8.5-10.1) L 05/12/18 06:30 Total Bilirubin 1.0 mg/dL (0.2-1) 05/12/18 06:30 AST 31 U/L (15-37) 05/12/18 06:30 ALT 31 U/L (13-61) 05/12/18 06:30 Alkaline Phosphatase 87 U/L (45-117) 05/12/18 06:30 Total Protein 6.8 g/dl (6.4-8.2) 05/12/18 06:30 Albumin 2.5 g/dl (3.4-5.0) L 05/12/18 06:30 Microbiology 05/10/18 05:30 Blood - Peripheral Venous Blood Culture - Preliminary NO GROWTH OBTAINED AFTER 48 HOURS, INCUBATION TO CONTINUE FOR 3 DAYS. 05/10/18 05:30 Blood - Peripheral Venous Blood Culture - Preliminary NO GROWTH OBTAINED AFTER 48 HOURS, INCUBATION TO CONTINUE FOR 3 DAYS. 05/10/18 00:01 Blood - Peripheral Venous Blood Culture - Preliminary NO GROWTH OBTAINED AFTER 48 HOURS, INCUBATION TO CONTINUE FOR 3 DAYS. 05/10/18 00:01 Blood - Peripheral Venous Blood Culture - Preliminary NO GROWTH OBTAINED AFTER 48 HOURS, INCUBATION TO CONTINUE FOR 3 DAYS. 05/10/18 07:45 Urine - Urine Clean Catch Urine Culture - Final NO GROWTH OBTAINED ASSESSMENT AND PLAN: 88yo F wtih PMH afib on eliquis, DVT, HTN presented to the ER with RUQ pain after eating suggestive of biliary colic vs acute cholecystitis 1. Acute cholecystitis- s/p cholecystostomy tube placement 05/11. surgery was planned for laprascopic cholecystectomy however pt was unable to tolerate pneumoperitoenum with elevated BP therefore tube was placed and procedure aborted. will maintain Tube at this time. advance diet as tolerated. cont ceftriaxone and flagyl day 3. LFT have normalized. f/u Cx. Sx on board. 2. Hypokalmeia- resolved 3. Hyponatremia- due to dehdyration. resolved 4. Hypomagnesemia- resolved 5. Afib on eliquis- cont rate control. hold eliquis and re-start when cleared by surgery 6. HTN- improved. resume home medications 7. DVT ppx- hep sq. will re-start eliquis after once cleared by surgery Visit type - Emergency Visit Emergency Visit: Yes ED Registration Date: 05/09/18 Care time: The patient presented to the Emergency Department on the above date and was hospitalized for further evaluation of their emergent condition. - New Patient This patient is new to me today: No - Critical Care Critical Care patient: No - Discharge Referral Referred to [facility] Med P.C.: No
[2018-05-12] MEDS: CEFTRIAXONE 1 GM in DEXTROSE 5%-WATER - 50 ML IVPB SCH (10:47)
--- NOTE | 2018-05-12 13:22 | PN ---
Progress Note, Physician Chief Complaint: abdominal pain History of Present Illness: 88yo female HTN, DVT, Afib on Eloquis (05/09/2018 in AM) presented with one day history of med epigastric abdominal pain and RUQ pain , worsening with food , 8/ 10 radiated to right side of chest. She has improved but has had a positive HIDA. she has been stable postopertively - Current Medication List Current Medications: Active Medications Acetaminophen (Tylenol -) 650 mg PO Q4H PRN PRN Reason: PAIN Last Admin: 05/11/18 22:29 Dose: 650 mg Acetaminophen (Tylenol -) 325 mg PO Q4H PRN PRN Reason: PAIN SCALE 7-10 Stop: 05/13/18 17:21 Amlodipine Besylate (Norvasc -) 2.5 mg PO DAILY [facility] Last Admin: 05/12/18 09:58 Dose: 2.5 mg Fentanyl (Sublimaze Injection -) 50 mcg IVPUSH [id number] PRN PRN Reason: PAIN-PACU ORDER X 4 DOSES ONLY Heparin Sodium (Porcine) (Heparin -) 5,000 unit SQ BID [facility] Last Admin: 05/12/18 09:59 Dose: 5,000 unit Ceftriaxone Sodium 1 gm/ (Dextrose) 50 mls @ 100 mls/hr IVPB DAILY [facility]; Protocol Last Admin: 05/12/18 10:47 Dose: 100 mls/hr Metronidazole (Flagyl 500mg Premixed Ivpb -) 500 mg in 100 mls @ 100 mls/hr IVPB Q8H-IV [facility] Last Admin: 05/12/18 10:01 Dose: 100 mls/hr Losartan Potassium (Cozaar -) 100 mg PO DAILY [facility] Last Admin: 05/12/18 09:58 Dose: 100 mg Morphine Sulfate (Morphine Sulfate) 1 mg IVPUSH Q4H PRN PRN Reason: PAIN LEVEL 7 - 10 Ondansetron HCl (Zofran Injection) 4 mg IVPUSH Q6H PRN PRN Reason: NAUSEA AND/OR VOMITING Oxycodone HCl (Roxicodone -) 5 mg PO Q4H PRN PRN Reason: PAIN SCALE 7-10 Last Admin: 05/11/18 11:31 Dose: 5 mg Pantoprazole Sodium (Protonix -) 20 mg PO DAILY [facility] Last Admin: 03/23/19 09:59 Dose: 20 mg Promethazine HCl (Phenergan Injection -) 12.5 mg IVPUSH Q6H PRN PRN Reason: NAUSEA-FOR RESCUE AFTER 15 MIN - Objective Vital Signs: Vital Signs Temperature 98.1 F 05/12/18 06:33 Pulse Rate 78 05/12/18 06:33 Respiratory Rate 20 05/12/18 06:33 Blood Pressure 137/96 05/12/18 06:33 O2 Sat by Pulse Oximetry (%) 96 05/11/18 21:00 Vital Signs Period Temp Pulse Resp BP Sys/Butterfield Pulse Ox Last 24 Hr 97.8 F-98.9 F 78-91 18-20 120-139/71-84 96 Constitutional: Yes: Well Nourished, No Distress, Calm Eyes: Yes: Conjunctiva Clear, EOM Intact HENT: Yes: Atraumatic, Normocephalic Neck: Yes: Supple Cardiovascular: Yes: Regular Rate and Rhythm, S1, S2 Respiratory: Yes: Regular, CTA Bilaterally Gastrointestinal: Yes: Normal Bowel Sounds, Soft, Other (RUQ cholecystostomy and gravity bag). No: Tenderness ...Rectal Exam: No: Guaiac Positive, Guaiac Trace, Inflammation Genitourinary: No: CVA Tenderness - Left, CVA Tenderness - Right Musculoskeletal: No: Muscle Pain, Muscle Weakness Extremities: No: Cool, Cyanosis Edema: No Peripheral Pulses WNL: Yes Peripheral Pulses: Left Radial: 2+, Right Radial: 2+, Left Doralis Pedis: 2+, Right Dorsalis Pedis: 2+, Left Femoral: 2+, Right Femoral: 2+ Integumentary: No: Jaundice, Tenting Wound/Incision: Yes: Clean/Dry, Well Approximated, Draining (RUQ choleystostomy 275ml in last 24) Neurological: Yes: Alert, Oriented Psychiatric: Yes: Alert, Oriented Labs: CBC, BMP 05/12/18 06:30 05/12/18 06:30 INR, PTT INR 1.32 (0.83-1.09) H 05/11/18 06:35 Problem List - Problems (1) Biliary colic Assessment/Plan: 88yo female MMP with abdominal pain after a meal, no leukocytosis, no fever, HIDA was positive. She has also had worsening of symptoms, persistent RUQ pain, still no norris's. Discussed option with the sons and daughter in law. POD#1 s/ p laparoscopy and placement of cholecystostomy May resume anticoadculation 24hrs post op clear liquid diet and advnce as tolerated adeauate analgesia strict I&O recording will discuss f/u plan with Dr. Denny Code(s): K80.50 - CALCULUS OF BILE DUCT W/O CHOLANGITIS OR CHOLECYST W/O OBST (2) Afib Code(s): I48.91 - UNSPECIFIED ATRIAL FIBRILLATION Qualifiers: Atrial fibrillation type: chronic Qualified Code(s): I48.2 - Chronic atrial fibrillation (3) HTN (hypertension) Code(s): I10 - ESSENTIAL (PRIMARY) HYPERTENSION Qualifiers: Hypertension type: essential hypertension Qualified Code(s): I10 - Essential (primary) hypertension (4) DVT prophylaxis Code(s): CNK1027 -
[2018-05-13] MEDS ORDERED: INSULIN (LEVEMIR) 100 UNITS/ML UNITS SQ ONE (06:39)
[2018-05-13] MEDS ORDERED: cefTRIAXone SODIUM 1 GM VIAL ONE (08:37)
[2018-05-13] MEDS ORDERED: DEXTROSE 5%-WATER - 50 ML IVPB ONE (08:38)
[2018-05-13] MEDS: LOSARTAN POTASSIUM 50 MG TABLET (FP) PO SCH ×2 (08:45→10:11)
[2018-05-13] MEDS: amLODIPine BESYLATE 2.5 MG TABLET (FP) PO SCH ×2 (08:46→10:11)
[2018-05-13] MEDS: CEFTRIAXONE 1 GM in DEXTROSE 5%-WATER - 50 ML IVPB SCH (10:11)
[2018-05-13] MEDS: PANTOPRAZOLE 20 MG TABLET (FP) PO SCH (10:12)
[2018-05-13] MEDS: HEPARIN NA (PORCINE) 5,000 UNITS/ML 1ML VIAL SQ SCH (10:17)
--- NOTE | 2018-05-13 10:21 | PN ---
Progress Note (short form) - Note Progress Note: s: no chest pain, palps, dizziness. abd pain improving. Current Medications Acetaminophen (Tylenol -) 650 mg PO Q4H PRN PRN Reason: PAIN Last Admin: 05/11/18 22:29 Dose: 650 mg Acetaminophen (Tylenol -) 325 mg PO Q4H PRN PRN Reason: PAIN SCALE 7-10 Stop: 05/13/18 17:21 Amlodipine Besylate (Norvasc -) 2.5 mg PO DAILY [facility] Last Admin: 05/13/18 10:11 Dose: Not Given Fentanyl (Sublimaze Injection -) 50 mcg IVPUSH [id number] PRN PRN Reason: PAIN-PACU ORDER X 4 DOSES ONLY Heparin Sodium (Porcine) (Heparin -) 5,000 unit SQ BID [facility] Last Admin: 05/13/18 10:17 Dose: 5,000 unit Ceftriaxone Sodium 1 gm/ (Dextrose) 50 mls @ 100 mls/hr IVPB DAILY [facility]; Protocol Last Admin: 05/13/18 10:11 Dose: 100 mls/hr Metronidazole (Flagyl 500mg Premixed Ivpb -) 500 mg in 100 mls @ 100 mls/hr IVPB Q8H-IV [facility] Last Admin: 05/13/18 10:11 Dose: 100 mls/hr Losartan Potassium (Cozaar -) 100 mg PO DAILY [facility] Last Admin: 05/13/18 10:11 Dose: Not Given Morphine Sulfate (Morphine Sulfate) 1 mg IVPUSH Q4H PRN PRN Reason: PAIN LEVEL 7 - 10 Ondansetron HCl (Zofran Injection) 4 mg IVPUSH Q6H PRN PRN Reason: NAUSEA AND/OR VOMITING Oxycodone HCl (Roxicodone -) 5 mg PO Q4H PRN PRN Reason: PAIN SCALE 7-10 Last Admin: 05/11/18 11:31 Dose: 5 mg Pantoprazole Sodium (Protonix -) 20 mg PO DAILY [facility] Last Admin: 05/13/18 10:12 Dose: 20 mg Promethazine HCl (Phenergan Injection -) 12.5 mg IVPUSH Q6H PRN PRN Reason: NAUSEA-FOR RESCUE AFTER 15 MIN pe: Vital Signs Period Temp Pulse Resp BP Sys/Butterfield Pulse Ox Last 24 Hr 98.1 F-98.5 F 76-87 18-22 138-165/75-102 99 nad, no jvd irreg s1s2 no mrg cta b/l, nl eff aaox3 no le e/c/c abd nd pos bs, mild ruq abd tender pos dp/pt no diaphoresis/jaundice echo 12/03: nl lv s/f, nl rv s/f, nl atria size, nl rvsp, no sig valve path cxr: no sig chf tele: afib, vr in 70s ecg: afib, rate ok, no ischemic changes a/p: 88 f hx htn, afib, here with abd pain. acute bailee, s/p cholecystostomy - cholecystectomy aborted due to hypertension - now s/p cholecystostomy tube - plan per surgery - resume eliquis post op when possible afib: -rate controlled off meds -on eliquis at home, resume post op when possible htn: -stable, cont home meds
--- NOTE | 2018-05-13 11:52 | PN ---
Teaching Attending Note Name of Resident: Amber Yanes ATTENDING PHYSICIAN STATEMENT I saw and evaluated the patient. I reviewed the resident's note and discussed the case with the resident. I agree with the resident's findings and plan as documented. SUBJECTIVE:tolerating diet. pain is controlled with medications. Denies CP, SOB , fever, chills, N/V/C/D OBJECTIVE: Last Vital Signs Temp Pulse Resp BP Pulse Ox 98.4 F 85 18 152/92 99 05/13/18 08:48 05/13/18 10:13 05/13/18 10:13 05/13/18 10:13 05/12/18 21:00 General NAD ABdomen diffuse tenderness but most over incision sites. +cholestomy tube draining bile ASSESSMENT AND PLAN: 88yo F wtih PMH afib on eliquis, DVT, HTN presented to the ER with RUQ pain after eating suggestive of biliary colic vs acute cholecystitis 1. Acute cholecystitis- s/p cholecystostomy tube placement 05/11. tolerating diet. on ceftiraxone/flagyl day 4. can likely switch to po tomorrow. further tube management per surgery. f/u Cx. Sx on board. 2. Hypokalmeia- resolved 3. Hyponatremia- due to dehdyration. resolved 4. Hypomagnesemia- resolved 5. Afib on eliquis- cont rate control. hold eliquis and re-start when cleared by surgery 6. HTN- improved. resume home medications 7. DVT ppx- hep sq. will re-start eliquis after once cleared by surgery 8. PT eval. anticipate discharge in next 24-48H
[2018-05-13] MEDS: APIXABAN 2.5 MG TABLET PO SCH ×2 (12:50→21:55)
--- NOTE | 2018-05-13 14:35 | PN ---
Physical Exam: SUBJECTIVE: Patient seen and examined at bedside. With elevated BP (160/100), given AM BP meds early and improved to 150/90. Tolerating PO diet. No further complaint. OBJECTIVE: Vital Signs Period Temp Pulse Resp BP Sys/Butterfield Pulse Ox Last 24 Hr 98.3 F-98.5 F 76-87 18-18 152-165/88-102 99 GENERAL: The patient is awake, alert, and fully oriented, in no acute distress. HEAD: Normal with no signs of trauma. EYES: PERRL, extraocular movements intact, sclera anicteric, conjunctiva clear. ENT: Ears normal, nares patent, oropharynx clear without exudates, moist mucous membranes. NECK: Trachea midline, supple. LUNGS: Breath sounds equal, clear to auscultation bilaterally, no wheezes, no crackles, no accessory muscle use. HEART: Regular rate and rhythm, S1, S2 without murmur, rub or gallop. ABDOMEN: Soft, +diffuse TTP in epigastrium. +bailee tube in place with dark drainage in bag. EXTREMITIES: 2+ pt pulses, warm, well-perfused, no edema. NEUROLOGICAL: Cranial nerves II through XII grossly intact. PSYCH: Normal mood, normal affect. SKIN: Warm, dry, normal turgor Active Medications Generic Name Dose Route Start Last Admin Trade Name Freq PRN Reason Stop Dose Admin Acetaminophen 650 mg 05/10/18 16:25 05/11/18 22:29 Tylenol - PO 650 mg Q4H PRN Administration PAIN Acetaminophen 325 mg 05/10/18 17:22 Tylenol - PO 05/13/18 17:21 Q4H PRN PAIN SCALE 7-10 Amlodipine Besylate 2.5 mg 05/11/18 10:00 05/13/18 10:11 Norvasc - PO Not Given DAILY [facility] Apixaban 2.5 mg 05/13/18 12:00 05/13/18 12:50 Eliquis - PO 2.5 mg BID [facility] Administration Fentanyl 50 mcg 05/11/18 16:31 Sublimaze Injection - IVPUSH [id number] PRN PAIN-PACU ORDER X 4 DOSES ONLY Ceftriaxone Sodium 1 gm/ 50 mls @ 100 mls/hr 05/10/18 17:00 05/13/18 10:11 Dextrose IVPB 100 mls/hr DAILY [facility] Administration Protocol Metronidazole 500 mg in 100 mls @ 100 mls/hr 05/10/18 18:00 05/13/18 10:11 Flagyl 500mg Premixed Ivpb - IVPB 100 mls/hr Q8H-IV [facility] Administration Losartan Potassium 100 mg 05/11/18 10:00 05/13/18 10:11 Cozaar - PO Not Given DAILY [facility] Morphine Sulfate 1 mg 05/10/18 16:25 Morphine Sulfate IVPUSH Q4H PRN PAIN LEVEL 7 - 10 Ondansetron HCl 4 mg 05/11/18 16:31 Zofran Injection IVPUSH Q6H PRN NAUSEA AND/OR VOMITING Oxycodone HCl 5 mg 05/10/18 17:22 05/11/18 11:31 Roxicodone - PO 5 mg Q4H PRN Administration PAIN SCALE 7-10 Pantoprazole Sodium 20 mg 05/11/18 10:00 05/13/18 10:12 Protonix - PO 20 mg DAILY [facility] Administration Promethazine HCl 12.5 mg 05/11/18 16:31 Phenergan Injection - IVPUSH Q6H PRN NAUSEA-FOR RESCUE AFTER 15 MIN ASSESSMENT/PLAN: 88 F w/PMH afib (on eliquis), DVT, HTN, who presented to the ED with RUQ pain. s /p bailee tube 05/11. #S/p bailee tube (05/11) -d/w sx: will d/w IR concerning tube mgmt. May be able to remove within 1-2 months -as per sx, have restarted on eliquis -on rocephin, flagyl- Day. goal to switch to PO tomorrow #afib -c/w rate control -back on eliquis #HTN-improved -likely 2/2 discomfort -c/w norvasc, cozaar #F/E/N no IVF indicated at this time continue to follow lytes low Na diet #PPX DVT: eliquis #Dispo continue monitoring on med-surg for possible d/c tomorrow pending bailee tube mgmt plan and PT eval Visit type - Emergency Visit Emergency Visit: No - New Patient This patient is new to me today: Yes Date on this admission: 05/13/18 - Critical Care Critical Care patient: No
[2018-05-13] MEDS: oxyCODONE HCL 5 MG TABLET PO PRN (15:19)
--- NOTE | 2018-05-13 19:59 | PN ---
Progress Note, Physician Chief Complaint: abdominal pain History of Present Illness: 88yo female HTN, DVT, Afib on Eloquis (05/09/2018 in AM) presented with one day history of med epigastric abdominal pain and RUQ pain , worsening with food , 8/ 10 radiated to right side of chest. She has improved but has had a positive HIDA. she has been stable postopertively - Current Medication List Current Medications: Active Medications Acetaminophen (Tylenol -) 650 mg PO Q4H PRN PRN Reason: PAIN Last Admin: 05/11/18 22:29 Dose: 650 mg Amlodipine Besylate (Norvasc -) 2.5 mg PO DAILY [facility] Last Admin: 05/13/18 10:11 Dose: Not Given Apixaban (Eliquis -) 2.5 mg PO BID [facility] Last Admin: 05/13/18 12:50 Dose: 2.5 mg Fentanyl (Sublimaze Injection -) 50 mcg IVPUSH [id number] PRN PRN Reason: PAIN-PACU ORDER X 4 DOSES ONLY Ceftriaxone Sodium 1 gm/ (Dextrose) 50 mls @ 100 mls/hr IVPB DAILY [facility]; Protocol Last Admin: 05/13/18 10:11 Dose: 100 mls/hr Metronidazole (Flagyl 500mg Premixed Ivpb -) 500 mg in 100 mls @ 100 mls/hr IVPB Q8H-IV [facility] Last Admin: 05/13/18 18:15 Dose: 100 mls/hr Losartan Potassium (Cozaar -) 100 mg PO DAILY [facility] Last Admin: 05/13/18 10:11 Dose: Not Given Morphine Sulfate (Morphine Sulfate) 1 mg IVPUSH Q4H PRN PRN Reason: PAIN LEVEL 7 - 10 Ondansetron HCl (Zofran Injection) 4 mg IVPUSH Q6H PRN PRN Reason: NAUSEA AND/OR VOMITING Oxycodone HCl (Roxicodone -) 5 mg PO Q4H PRN PRN Reason: PAIN SCALE 7-10 Last Admin: 05/13/18 15:19 Dose: 5 mg Pantoprazole Sodium (Protonix -) 20 mg PO DAILY [facility] Last Admin: 05/13/18 10:12 Dose: 20 mg Promethazine HCl (Phenergan Injection -) 12.5 mg IVPUSH Q6H PRN PRN Reason: NAUSEA-FOR RESCUE AFTER 15 MIN - Objective Vital Signs: Vital Signs Temperature 97.8 F 05/13/18 18:49 Pulse Rate 91 H 05/13/18 18:49 Respiratory Rate 18 05/13/18 18:49 Blood Pressure 126/82 05/13/18 18:49 O2 Sat by Pulse Oximetry (%) 96 05/13/18 09:00 Vital Signs Period Temp Pulse Resp BP Sys/Butterfield Pulse Ox Last 24 Hr 97.8 F-98.7 F 74-91 18-22 126-139/61-84 96 Constitutional: Yes: Well Nourished, No Distress, Calm Eyes: Yes: Conjunctiva Clear, EOM Intact HENT: Yes: Atraumatic, Normocephalic Neck: Yes: Supple, Trachea Midline Cardiovascular: Yes: Regular Rate and Rhythm, S1, S2 Respiratory: Yes: Regular, CTA Bilaterally Gastrointestinal: Yes: Normal Bowel Sounds, Soft. No: Tenderness Genitourinary: No: CVA Tenderness - Left, CVA Tenderness - Right Musculoskeletal: No: Muscle Pain, Muscle Weakness Extremities: No: Cool, Cyanosis Edema: No Peripheral Pulses WNL: Yes Peripheral Pulses: Left Radial: 2+, Right Radial: 2+, Left Doralis Pedis: 2+, Right Dorsalis Pedis: 2+, Left Femoral: 2+, Right Femoral: 2+ Integumentary: No: Jaundice, Rash, Skin Tear Wound/Incision: Yes: Clean/Dry, Well Approximated, Draining (RUQ cholecystostomy ) Neurological: Yes: Alert, Oriented Psychiatric: Yes: Alert, Oriented Labs: CBC, BMP 05/12/18 06:30 05/12/18 06:30 INR, PTT INR 1.32 (0.83-1.09) H 05/11/18 06:35 Problem List - Problems (1) Biliary colic Assessment/Plan: 88yo female MMP with abdominal pain after a meal, no leukocytosis, no fever, HIDA was positive. She has also had worsening of symptoms, persistent RUQ pain, still no norris's. Discussed option with the sons and daughter in law. POD#3 s/ p laparoscopy and placement of cholecystostomy Follow up plan: [address] Jose to evaluate incisions [address] Joe Denny for cholecysogram to guide removal May resume anticoagulation 24hrs post op clear liquid diet and advnce as tolerated adeauate analgesia strict I&O recording D/C planning with VNS for drain teaching will follow Code(s): K80.50 - CALCULUS OF BILE DUCT W/O CHOLANGITIS OR CHOLECYST W/O OBST (2) Afib Code(s): I48.91 - UNSPECIFIED ATRIAL FIBRILLATION Qualifiers: Atrial fibrillation type: chronic Qualified Code(s): I48.2 - Chronic atrial fibrillation (3) HTN (hypertension) Code(s): I10 - ESSENTIAL (PRIMARY) HYPERTENSION Qualifiers: Hypertension type: essential hypertension Qualified Code(s): I10 - Essential (primary) hypertension (4) DVT prophylaxis Code(s): XRL2373 -
[2018-05-14] MEDS ORDERED: DEXTROSE 5%-WATER - 50 ML IVPB ONE (09:56)
[2018-05-14] MEDS ORDERED: cefTRIAXone SODIUM 1 GM VIAL ONE (09:56)
[2018-05-14] MEDS: LOSARTAN POTASSIUM 50 MG TABLET (FP) PO SCH (10:58)
[2018-05-14] MEDS: oxyCODONE HCL 5 MG TABLET PO PRN (10:59)
[2018-05-14] MEDS: PANTOPRAZOLE 20 MG TABLET (FP) PO SCH (11:00)
[2018-05-14] MEDS: amLODIPine BESYLATE 2.5 MG TABLET (FP) PO SCH (11:00)
[2018-05-14] MEDS: APIXABAN 2.5 MG TABLET PO SCH (11:01)
[2018-05-14] MEDS: CEFTRIAXONE 1 GM in DEXTROSE 5%-WATER - 50 ML IVPB SCH (11:01)
--- NOTE | 2018-05-14 11:51 | PN ---
Progress Note, Physician Chief Complaint: abd pain History of Present Illness: used to see dr vazquez. saw a replacement in his office once. does not appear to be aware that she ever had irregular heart rhythm/afib in past, or that she was supposed to be taking blood thinner denies palpitations. no sob. no cp. no leg swelling - Current Medication List Current Medications: Active Medications Acetaminophen (Tylenol -) 650 mg PO Q4H PRN PRN Reason: PAIN Last Admin: 05/11/18 22:29 Dose: 650 mg Amlodipine Besylate (Norvasc -) 2.5 mg PO DAILY [facility] Last Admin: 05/14/18 11:00 Dose: 2.5 mg Apixaban (Eliquis -) 2.5 mg PO BID [facility] Last Admin: 05/14/18 11:01 Dose: 2.5 mg Fentanyl (Sublimaze Injection -) 50 mcg IVPUSH [id number] PRN PRN Reason: PAIN-PACU ORDER X 4 DOSES ONLY Ceftriaxone Sodium 1 gm/ (Dextrose) 50 mls @ 100 mls/hr IVPB DAILY [facility]; Protocol Last Admin: 05/14/18 11:01 Dose: 100 mls/hr Metronidazole (Flagyl 500mg Premixed Ivpb -) 500 mg in 100 mls @ 100 mls/hr IVPB Q8H-IV [facility] Last Admin: 05/14/18 11:01 Dose: 100 mls/hr Losartan Potassium (Cozaar -) 100 mg PO DAILY [facility] Last Admin: 05/14/18 10:58 Dose: 100 mg Ondansetron HCl (Zofran Injection) 4 mg IVPUSH Q6H PRN PRN Reason: NAUSEA AND/OR VOMITING Oxycodone HCl (Roxicodone -) 5 mg PO Q4H PRN PRN Reason: PAIN SCALE 7-10 Last Admin: 05/14/18 10:59 Dose: 5 mg Pantoprazole Sodium (Protonix -) 20 mg PO DAILY [facility] Last Admin: 05/14/18 11:00 Dose: 20 mg Promethazine HCl (Phenergan Injection -) 12.5 mg IVPUSH Q6H PRN PRN Reason: NAUSEA-FOR RESCUE AFTER 15 MIN - Objective Vital Signs: Vital Signs Temperature 98.5 F 05/14/18 06:00 Pulse Rate 82 05/14/18 06:00 Respiratory Rate 20 05/14/18 06:00 Blood Pressure 139/84 05/14/18 06:00 O2 Sat by Pulse Oximetry (%) 96 05/13/18 21:00 Constitutional: Yes: Well Nourished, No Distress, Calm Cardiovascular: Yes: Regular Rate and Rhythm, S1, S2. No: Gallop, Murmur Respiratory: Yes: Regular, CTA Bilaterally. No: Accessory Muscle Use, Rales, Wheezes Extremities: No: Cold Edema: No Neurological: Yes: Alert, Oriented Psychiatric: No: Agitated Labs: CBC, BMP 05/12/18 06:30 05/12/18 06:30 INR, PTT INR 1.32 (0.83-1.09) H 05/11/18 06:35 Assessment/Plan echo 12/03: nl lv s/f, nl rv s/f, nl atria size, nl rvsp, no sig valve path cxr: no sig chf ecg: afib, rate ok, no ischemic changes a/p: 88 f hx htn, afib, here with abd pain. acute bailee, s/p cholecystostomy - cholecystectomy aborted due to hypertension - now s/p cholecystostomy tube - plan per surgery afib: -rate controlled off meds -chart reviewed: here 03/09 with admit notes not specifying eliquis in med list. subsequent notes at that time state "on eliquis at home, continue". given 2.5 BID then. of note, her listed weights then and her creat (<1.5) were such that 5mg dose was the rec'd dose for her. -again this admit pt is listed as "on eliquis" without specific dose info given. -being as there are no details available regarding prior history, dose tolerance or not, and rationale for treatment plan, i will not change prior dose --pt requires outpatient cardiology f/u for ongoing monitoring--if remains stable, will consider incr dose to 5 bid at that time htn: -stable -cont home meds
--- NOTE | 2018-05-14 14:29 | DS ---
Physical Exam: SUBJECTIVE: Patient seen and examined at bedside. no acute events overnight. c/ o abd pain but mildly improved w/ meds. +cholecystotmy drain. denies fever, chill, cp, sob, n/v/d, urinary sxs. eliquis restarted. tolerating PO OBJECTIVE: Vital Signs Period Temp Pulse Resp BP Sys/Butterfield Pulse Ox Last 24 Hr 97.8 F-98.9 F 78-91 18-20 120-139/71-84 96 PHYSICAL EXAM GENERAL: The patient is awake, alert, and fully oriented, in no acute distress. HEAD: Normal with no signs of trauma. EYES: PERRL, extraocular movements intact, sclera anicteric, conjunctiva clear. ENT: Ears normal, nares patent, oropharynx clear without exudates, moist mucous membranes. NECK: Trachea midline, supple. LUNGS: Breath sounds equal, clear to auscultation bilaterally, no wheezes, no crackles, no accessory muscle use. HEART: Regular rate and rhythm, S1, S2 without murmur, rub or gallop. ABDOMEN: Soft, +diffuse TTP in epigastrium. +bailee tube in place with dark drainage in bag. EXTREMITIES: 2+ pt pulses, warm, well-perfused, no edema. NEUROLOGICAL: Cranial nerves II through XII grossly intact. PSYCH: Normal mood, normal affect. SKIN: Warm, dry, normal turgor LABS [id number] US/ABDOMEN US -LIMITED [id number] US/AORTA US HISTORY PROVIDED: Right upper quadrant pain, rule out AAA.. Real time examination of the abdomen demonstrates the following: The gallbladder is somewhat distended. It does contain echogenic material that may represent biliary sludge or possibly small calculi. There is a trace amount of pericholecystic fluid and the entry level buyer describes a positive Saleh sign. This suggests acute cholecystitis. Clinical correlation is a size. A confirmatory HIDA scan is now recommended. There is no evidence of intra or extrahepatic biliary duct dilatation. The liver is normal in size and texture with no intrahepatic masses seen. The pancreas is normal in size and texture with no pancreatic masses identified. The tail of the pancreas was not completely visualized due to overlying bowel gas. There is no evidence of hydronephrosis or acute abnormalities of the right kidney. The abdominal aorta is somewhat ectatic. No significant aneurysmal dilatation is identified. IMPRESSION: 1. Distended gallbladder with possible small calculi and trace pericholecystic fluid. The entry level buyer describes a positive Saleh's sign and acute cholecystitis cannot be excluded. Clinical correlation and follow-up recommended. Please see above discussion. 2. No evidence of AAA. [id number] NM/HIDA SCAN HIDA SCAN CLINICAL INDICATION: 88-year-old female with biliary colic TECHNIQUE: Following the intravenous administration of 6.6 mCi of Tc 99M of Choletec, dynamic images of the abdomen in the anterior projection were obtained through 120minutes. COMPARISON: Ultrasound of the abdomen dated May 09, 2018. FINDINGS: There is normal homogeneous perfusion of the liver with no evidence of focal lesion. Extraction of tracer from the blood pool by the liver parenchyma is normal. Tracer appears promptly and within the biliary tree. The gallbladder does not fill with tracer after 2 hours of imaging. Tracer in the small bowel is first seen at 15minutes. There is near- total biliary enteric transit of tracer x 2 h of imaging with no tracer seen in the liver or biliary tree IMPRESSION: No filling of the gallbladder after 2 hours of imaging. When correlated with ultrasound of the abdomen dated May 09, 2018, findings are suspicious for cystic duct obstruction and acute cholecystitis. HOSPITAL COURSE: Date of Admission:05/09/18 Date of Discharge: 05/14/18 88 yo F with pmhx of HTN , Afib on eliquis and H/O DVT presented with one day history of epigastric and RUQ abdominal pain and was found to have hypertensive urgency admitted for tele for further eval and treatment. +HIDA suspicious for acute cholecystitis, going for lap bailee Admitted for Biliary colic with acute cholecystitis - CXR nl. US abdomen noted above. +HIDA suspicious for cystic duct obstruction and acute cholecystitis. ucx , bcx neg. pt tx w/ IV CTX/Flagyl (so far completed 5d). Surgery consulted for lap bailee, however could not be done due to elevated BPs 190/140 refractory to medication after establishing pneumoperitonieum in the OR. Instead, pt underwent cholecystostomy tube placement 05/11/18. Per surgery, pt will need to f /u w/ IR Dr. Denny in 3 weeks (06/04/18). pt will be dcd w/ 5 more days of PO abx: flagyl 500mg tid and augmentin 875 bid. cx from gallbladder are neg. pt is tolerating PO, abd pain improved. # Hypertensive urgency 213/110 at admission- resolved did not take her meds prior to admission home meds resumed # Afib - rate controlled -eliquis 2.5bid has been resumed. -chart reviewed: here 03/09 with admit notes not specifying eliquis in med list. subsequent notes at that time state "on eliquis at home, continue". given 2.5 BID then. of note, her listed weights then and her creat (<1.5) were such that 5mg dose is the rec'd dose for her. -again this admit pt is listed as "on eliquis" without specific dose info given. -being as there are no details available regarding prior history, dose tolerance or not, and rationale for treatment plan, we will not change prior dose--pt requires outpatient cardiology f/u for ongoing monitoring--if remains stable, should consider increase dose to 5 bid at that time #Chronic microcytosis - no anemia, hgb 12-14. Consider outpt iron studies and workup # Full code pt is stable and ready for dc w/ appropriate f/u Minutes to complete discharge: 38 Discharge Summary Reason For Visit: EPIGASTRIC PAIN Current Active Problems Biliary colic (Acute) Cholecystitis (Acute) Condition: Improved - Instructions Diet, Activity, Other Instructions: you came in for abdominal pain and were found to have an infection and blockage in your gallbladder due to gallstones. we gave you antibiotics and you went for surgery to remove the gallbladder. however your blood pressure was too high during surgery and it was not safe for the surgeon to continue so instead a drain was put in to help drain the gallbladder and infection. Please follow up here with Interventional Radiologist Dr. Denny in 3 weeks for a cholecystogram, which will help determine when we can remove the tube and to see if there are any more stones. During this time please drain the cholecystotomy bag as needed/when its full Please continue taking the following antibiotics for 5 more days: Flagyl 500mg three times a day Augmentin 875mg twice a day Please resume your home meds You may need a higher dose of eliquis. Please talk to your lining baster about possibly increasing your eliquis dose in order to help prevent strokes. Please talk to your primary care physician about getting iron studies as you may be anemic due to iron deficiency Please follow up with your primary care physician within 1 week Please follow up with surgeon Dr Jose within 2 weeks Please follow up here with Interventional Radiologist Dr. Denny in 3 weeks, Please follow up with lining baster Dr Quezada within 1 week If you experience any fever, chills, chest pain, shortness of breath, nausea, vomit, diarrhea, worsening abdominal pain, please call 911 or go the ER Postoperative instructions: You had a diagnostic laparoscopy and placement of cholecystostomy on 05/12/[address] Jason Jose of [facility]. Activity: Resume your usual activities gradually, but no heavy exertion or lifting more than 10-15 pounds for 1 month. Do not remove the dressing or tube. You may shower daily starting then, just pat the incision areas dry. No bath or swimming until skin incisions have healed. Eat lightly at first, but advance to your usual diet as tolerated. Pain: For pain, you may use and alternate Tylenol (acetaminophen) 1-2 pills and/ or ibuprofen 200 mg (1-3 pills) every 6 hours each as needed; this means that you can take one OR the other at 3-hour intervals. If you are prescribed a Tylenol/narcotic combination for severe pain, use it instead of plain Tylenol as needed and switch back when your pain starts decreasing. Do not take more than 4000mg of acetaminophen in a day. Take medications as prescribed or indicated on the labeling. Follow-up: Call Dr. Jose' office at [phone] to make your postop appointment (Monday in approximately 2 weeks after surgery). Clinic is held in the [facility] on the first floor of [facility]. Call the office if you have: * increasing pain not responsive to pain medication * fever of 101F or higher * vomiting * unusual or increasing bleeding or drainage from wounds * increasing redness or swelling at wound sites * inability to urinate Also, see your primary medical doctor within 1-2 weeks. Referrals: Joe Denny MD [Staff Physician] - 06/04/18 Gokul Quezada MD [Staff Physician] - 1 Week Jason Jose MD [Staff Physician] - 2 Weeks Disposition: VNS/HOME HEALTH CARE - Home Medications Comprehensive Discharge Medication List: Ambulatory Orders RX: Bifidobacterium Infantis [Align] 10.5 mg PO DAILY 05/09/18 RX: Losartan/Hydrochlorothiazide [Losartan-Hctz 100-12.5 mg Tab] 1 each PO DAILY 05/09/18 RX: Alprazolam 0.25 mg PO DAILY 05/10/18 RX: Amlodipine Besylate 2.5 mg PO DAILY 05/10/18 Amoxicillin/Potassium Clav [Augmentin 875-125 Tablet] 1 each PO BID 5 Days #10 tablet 05/14/18 metroNIDAZOLE [Flagyl -] 500 mg PO TID 5 Days #15 tablet 05/14/18 This patient is new to me today: Yes Date on this admission: 05/14/18 Emergency Visit: Yes ED Registration Date: 05/09/18 Care time: The patient presented to the Emergency Department on the above date and was hospitalized for further evaluation of their emergent condition. Critical Care patient: No - Discharge Referral Referred to [facility] No
--- NOTE | 2018-05-14 16:24 | PN ---
Teaching Attending Note Name of Resident: Roman Santos ATTENDING PHYSICIAN STATEMENT I saw and evaluated the patient. I reviewed the resident's note and discussed the case with the resident. I agree with the resident's findings and plan as documented. SUBJECTIVE:pain is controlled with pain medications. denies CP, SOB, fever, chills, N/V/C/D OBJECTIVE: Last Vital Signs Temp Pulse Resp BP Pulse Ox 98.7 F 74 22 H 132/61 96 05/14/18 14:47 05/14/18 14:47 05/14/18 14:47 05/14/18 14:47 05/13/18 21:00 General NAD ABdomen diffuse tenderness but most over incision sites. +cholestomy tube draining bile ASSESSMENT AND PLAN: 88yo F wtih PMH afib on eliquis, DVT, HTN presented to the ER with RUQ pain after eating suggestive of biliary colic vs acute cholecystitis 1. Acute cholecystitis- s/p cholecystostomy tube placement 05/11. tolerating diet. on ceftiraxone/flagyl day 5. can switch to augmentin and flagyl to complete 10 days. plan is for patient to follow up with Dr Jose as well as have a cholecysogram done by IR to assess if tube can be removed. VNS to be set up for drain teaching 2. Hypokalmeia- resolved 3. Hyponatremia- due to dehdyration. resolved 4. Hypomagnesemia- resolved 5. Afib on eliquis- cont rate control. eliquis re-started 6. HTN- improved. resume home medications 7. DVT ppx- eliquis 8. d/c home with VNS
[2018-05-14 18:09] VITALS: BP 147/82; PULSE 76; TEMP 98.6
--- NOTE | 2018-05-14 23:06 | OP ---
DATE OF OPERATION: 05/11/2018 PREOPERATIVE DIAGNOSIS: Acute cholecystitis. POSTOPERATIVE DIAGNOSIS: Acute cholecystitis. PROCEDURE: Diagnostic laparoscopy, placement of cholecystostomy tube. ATTENDING SURGEON: Jason Jose MD DROP FORGE HAND: Khris Parks PA-C ANESTHESIA: General with local, local consisted of 0.5% Marcaine, a total of 10 mL given at the port sites. ESTIMATED BLOOD LOSS: 5 mL. INTRAVENOUS FLUIDS: 700 mL of crystalloid. DRAINS: Postoperatively, cholecystostomy tube right upper quadrant. FLUID DRAINED: 275 mL of green bile, which was sent for culture. IMPLANT: 10-[place] cholecystostomy tube, pigtail drain and gravity bag. FINDINGS: Patient had a friable, cirrhotic liver, a large distended gallbladder, which appeared hyperemic and injected. After establishing pneumoperitoneum, her blood pressure was noted to be 190/140 and refractory to medication. The decision was made to place the cholecystotomy tube as a temporizing measure. This is an abort with further dissection. INDICATIONS: The patient is an 88-year-old female with hypertension, atrial fibrillation and DVT, who presented with acute cholecystitis. She was counseled regarding the risks, benefits, and alternatives of surgical laparoscopic cholecystectomy, signed the informed consent and was taken for the procedure. DESCRIPTION OF PROCEDURE: Patient was brought to the operating room. She was placed in the supine position on the operating table. SCDs were placed to compression on the lower extremities bilaterally. She was induced with general anesthesia and endotracheally intubated, at which point, we began with the patient stable. Anterior abdominal wall was prepped and draped in the standard surgical fashion. The patient received intravenous Mefoxin 2 g prior to the start of surgery. A formal timeout was completed, identifying the operative site and procedure. We began first with a supraumbilical approach in the midline, which was scribed to the skin. Incision was made with a 15-blade scalpel, deepened and widened through the subcutaneous tissue. Care was taken to dissect down to the anterior fascia of the rectus, which was elevated into the field. A [id number] with an 0 Vicryl was laid in across the port site to facilitate ablation of the fascial defect after surgery. A pneumoperitoneum was established with a 12 mm Marin trocar through the umbilicus up to 15 mmHg, at which point it was noted that the patient's blood pressure spiked to 190/140. We began by inspecting the gallbladder itself. It did appear injected and distended. The liver did appear cobblestoned on its surface on Demarcus's capsule. It appeared cirrhotic and there was a significant amount of ascites as well, which was suctioned from the abdomen. With the blood pressure being refractor to medication, it was requested by anesthesia that we proceed with caution with regards to the patient's safety. The decision was made to abort the surgical dissection in favor of a cholecystostomy tube. It was quickly introduced in the abdomen. A hole was made in the gallbladder and the gallbladder was suctioned free and clear of stone, at which point a cholecystostomy 10-C[place]ican was introduced from the port site and then over a guidewire and secured to the skin with adequate suction of the gallbladder. Then 275 mL of green bile was removed from the gallbladder in addition to the gallbladder, which was suctioned free of stones. After this was complete, the pneumoperitoneum was released and the patient returned to more normal vital signs. She was unstable throughout the procedure, which is why it was aborted. We closed the fascial defect at the umbilicus and then closed the skin incisions. She was returned to recovery in stable condition after sterile dressings were placed. [place] bag was placed to the cholecystostomy tube and the plan was to possibly return in the future if she is more stable. MD SHAJI Gilliam/[id number]
== END 2018-05-14 19:30 | disposition home health service (06) | DRG 409 ==
LOC: FER 10:58 → J8W 19:34 → FER 22:34 → J4W 05-10 01:10 → J5S 05-10 15:10
PROVIDERS: ADMIT Internal Medicine; ATTEND Internal Medicine
PROC: 0WJP4ZZ Inspection of Gastrointestinal Tract, Percutaneous Endoscopic Approach (ICD-10-PCS; 2018-05-11)
PROC: 0F9400Z Drainage of Gallbladder with Drainage Device, Open Approach (ICD-10-PCS; principal; 2018-05-11 12:00)
DX: K80.00 Calculus of gallbladder with acute cholecystitis without obstruction (principal); E87.1 Hypo-osmolality and hyponatremia; R18.8 Other ascites; I48.2 Chronic atrial fibrillation; I10 Essential (primary) hypertension; E87.6 Hypokalemia; I16.0 Hypertensive urgency; K74.60 Unspecified cirrhosis of liver; E83.42 Hypomagnesemia
CPT/HCPCS: 36415; 71045-TC-FY; 76705-TC; 76775-TC; 78226-TC; 80053; 81003; 82150; 82248; 82550; 83036; 83605; 83690; 83735; 83880; 84100; 84132; 84484; 85025; 85610; 85730; 86850; 86900; 86901; 87040; 87070; 87075; 87086; 87205; 93005; 93010; 94010; 94760; 97116-GP; 97161-GP; 99283-25; A9537; J0131; J1644; J7030

== ENCOUNTER → 2018-05-28 | Day surgery (SDC) | payer OTHER, BC ==
--- NOTE | 2018-05-30 16:03 | PATH ---
Cytology Non-Gynecological Report Patient Name: HALEY EL [facility] [place]. Rec. #: [id number] /Age/Gender: 1930 (Age: 88) / F Account: [id number] Location: RADIOLOGY INTER Taken: 05/28/2018 Received: 05/28/2018 Reported: 05/30/2018 Physicians: Davon Oconnor M.D. Specimen(s) Received CHOLECYSTOSTOMY TUBE DRAINAGE Clinical History Acute cholecystitis Final Diagnosis CHOLECYSTOSTOMY TUBE DRAINAGE: SATISFACTORY FOR EVALUATION. NEGATIVE FOR MALIGNANT CELLS. BILE, FEW ACUTE INFLAMMATORY CELLS, AND REACTIVE EPITHELIAL CELLS PRESENT. Electronically Signed Nkechi Cortez M.D. Gross Description Approximately 60cc of yellow fluid received fresh. One slide and one cellblock prepared.
== END | disposition home or self-care (01) ==
LOC: JRADIR 09:51
PROC: BF13YZZ Fluoroscopy of Gallbladder and Bile Ducts using Other Contrast (ICD-10-PCS; principal; 2018-05-28)
DX: K82.0 Obstruction of gallbladder (principal); Z43.8 Encounter for attention to other artificial openings
CPT/HCPCS: 47531; 76000-TC-FY; 88108

== ENCOUNTER 2018-05-30 10:10 | Inpatient (IN) | payer OTHER, BC ==
[2018-05-30] MEDS ORDERED: SODIUM CHLORIDE 1,000 ML IV STA (10:40)
[2018-05-30] MEDS ORDERED: ACETAMINOPHEN 1000 MG/100 ML VIAL (NON FORMULARY) IVPB ONE (10:40)
[2018-05-30] MEDS ORDERED: ACETAMINOPHEN INJECTION 100 ML IVPB ONE (11:03)
[2018-05-30 11:35] LABS: BASO % 0.2 % (0-2.0); EOS % 0.4 % (0-4.5); HEMATOCRIT 39.7 % (32.4-45.2); HEMOGLOBIN 12.7 GM/dl (10.7-15.3); LYMPH % 24.6 % (8-40); MCH 23.1 pg (25.7-33.7); MEAN CELL VOLUME 72.3 fl (80-96); MEAN PLT VOLUME 9.8 fl (7.5-11.1); MONO % 10.6 % (3.8-10.2); NEUT % 64.2 % (42.8-82.8); PLATELET COUNT 233 K/MM3 (134-434); RBC 5.49 M/mm3 (3.60-5.2); WHITE BLOOD COUNT 6.8 K/mm3 (4.0-10.8)
[2018-05-30 11:41] LABS: ALBUMIN 3.2 g/dl (3.4-5.0); ALK PHOS 77 U/L (45-117); ANION GAP 11 MMOL/L (8-16); BILIRUBIN,TOTAL 1.4 mg/dl (0.2-1); BLOOD UREA NITROGEN 21 mg/dl (7-18); CALCIUM 8.2 mg/dl (8.5-10); CHLORIDE 94 mmol/L (98-107); CO2 21 mmol/L (21-32); CREATININE 1.3 mg/dl (0.55-1.3); GLUCOSE,RANDOM 146 mg/dl (74-106); SGOT/AST 42 U/L (15-37); SGPT/ALT 30 U/L (13-61); SODIUM 126 mmol/L (136-145)
--- NOTE | 2018-05-30 11:54 | PDOC ---
History of Present Illness - General Chief Complaint: Pain Stated Complaint: RIGHT LOWER ABDOMINAL PAIN Time Seen by Provider: 05/30/18 10:13 History Source: Patient, Family Exam Limitations: No Limitations - History of Present Illness Initial Comments: 05/30/18 11:57 HPI 88yo F w/ PMH Afib on eliquis, DVT, HTN presented to the ER with recent admission for acute bailee s/p cholecystostomy tube placement Presenting with RUQ pain x 2 days. She is s/p cholecystogram done by IR Dr Ruiz on 05/28/18 to assess the tube, injected dye and possibly some extravasation, but not removed. Afterward the procedure she developed severe RUQ pain. Admitted 05/09 to 05/14/18 for acute cholecystitis complicated by refractory HTN and pneumoperitoneum in the OR and lap bailee not ultimately performed, s/p cholecystostomy tube placement 05/11. s/p ceftiraxone/flagyl x 5 days, then switched to Augmentin course x 10 days which she completed. Bailee cs have been negative. Denies fever, chills, chest pain, SOB, palpitation, dizziness, weakness, N, V, D , bladder and bowel problems, leg swelling, No new changes in medications. Allergies: prednisone, pseudoephedrine, lexapro Past Medical History: Afib on eliquis, DVT, HTN Social history: Lives with family. No tobacco, ETOH or drug use. Surgical history: knee replacement, cholecystostomy tube Meds: as documented in EMR PMD: Dr Bah, Dr Valencia Surgery: Dr Jose. Review of systems Constitutional: no fevers or chills. HEENT: no headache or dizziness. No congestion. No visual/hearing disturbances. CVS: no cp or syncope. Resp: no sob. No cough. Gastrointestinal: no nausea or vomiting. +abdominal pain, bailee tube drainage. Genitourinary: no urinary sx, hematuria. MUSCULOSKELETAL: No joint pain and swelling. No neck or back pain. SKIN: no redness or skin changes, no discharge, no rash. No wounds. Hematologic: no easy bruising/bleeding. NEUROLOGIC: No headache, dizziness, LOC or altered mental status. No weakness, numbness or tingling. Psych: no anxiety or depression Allergic/Immunologic: no allergies All other systems reviewed and negative, or as documented in HPI. Physical exam: General: Well appearing, awake and alert, NAD. HEENT: NCAT, PERRL, EOMI, clear conjunctiva, anicteric, moist mucus membranes, clear oropharynx, no oral lesions.. Neck: neck supple, FROM Resp: CTAB, normal and even respirations, no respiratory distress CVS: irregularly irregular, +holosystolic murmur, 2+ peripheral pulses throughout, no peripheral edema Abdomen: +RUQ abdominal tenderness, cholecystostomy tube in place, draining orange liquid, no purulence, no bleeding. soft abdomen, nondistended. No CVAT. Back: nontender, normal inspection and ROM MSK: no edema, HERBERT x4, ROM intact. No clubbing or cyanosis. normal bulk and tone. Neuro: alert, no focal neuro deficits. Skin: warm and well perfused, cap refill <2 sec, normal color 05/30/18 12:00 Past History - Past Medical History Allergies/Adverse Reactions: Allergies Allergy/AdvReac Type Severity Reaction Status Date / Time prednisone Allergy Rash Verified 05/30/18 10:14 pseudoephedrine AdvReac Intermediate palpitation Verified 05/30/18 10:13 s lexpro Allergy Intermediate itching Uncoded 05/30/18 10:13 Home Medications: Ambulatory Orders Amlodipine Besylate 2.5 mg PO DAILY 05/30/18 Apixaban [Eliquis] 2.5 mg PO BID 05/30/18 Losartan/Hydrochlorothiazide [Losartan-Hctz 100-12.5 mg Tab] 1 tab PO DAILY 12/08 Cardiac Disorders: Yes (AFIB) COPD: No HTN: Yes Other medical history: DRAIN IN GALL BLADDER - Surgical History Orthopedic Surgery: Yes (BILATERAL KNEE REPLACEMENT) - Suicide/Smoking/Psychosocial Hx Smoking Status: No Smoking History: Never smoked Have you smoked in the past 12 months: No Number of Cigarettes Smoked Daily: 0 Information on smoking cessation initiated: No Hx Alcohol Use: No Drug/Substance Use Hx: No Substance Use Type: None *Physical Exam - Vital Signs Last Vital Signs Temp Pulse Resp BP Pulse Ox 98.2 F 98 H 16 117/66 98 05/30/18 10:12 05/30/18 11:21 05/30/18 11:21 05/30/18 11:21 05/30/18 11:21 Heart Score/ECG Review #1 ECG reviewed & interpreted by me at: 10:50 General ECG Interpretation: Normal Rate Compared to previous ECG there are: No significant change 05/30/18 11:59 EKG atrial fibrillation at 70 bpm , prolonged QTC interval. narrow QRS, ST and T wave segments and morphology normal. Nonspecific T wave abnormalities - ECG Impressions Tachycardia: Afib w/controlled rate ED Treatment Course - LABORATORY CBC & Chemistry Diagram: 05/30/18 11:01 05/30/18 11:01 - ADDITIONAL ORDERS Additional order review: 05/30/18 11:01 RBC 5.49 H MCV 72.3 L MCHC 32.0 RDW 14.0 MPV 9.8 Neutrophils % 64.2 Lymphocytes % 24.6 Monocytes % 10.6 H Eosinophils % 0.4 Basophils % 0.2 - RADIOLOGY Radiology Studies Ordered: Category Date Time Status ABDOMEN & PELVIS CT WITH CONTR [CT] Stat CT Scan 05/30/18 10:40 Ordered - Medications Given in the ED: ED Medications Discontinued Medications Generic Name Dose Route Start Last Admin Trade Name Freq PRN Reason Stop Dose Admin Acetaminophen 1,000 mg 05/30/18 10:40 05/30/18 11:06 Ofirmev Injection - IVPB 05/30/18 10:41 1,000 mg ONCE ONE Administration Sodium Chloride 1,000 mls @ 1,000 mls/hr 05/30/18 10:40 05/30/18 11:02 Normal Saline - IV 05/30/18 11:39 1,000 mls/hr ASDIR STA Administration Medical Decision Making - Medical Decision Making 05/30/18 11:58 See HPI for details Vital signs reviewed, wnl. NAD, no fever DDx abdominal pain: Renal colic, biliary colic, metabolic/electrolyte derangements. pancreatitis, hepatitis, constipation, colitis, gastroenteritis, cholecystitis, perf viscus, tube dislodgement, UTI, pyelonephritis, obstruction , medication side effect, hernia, mesenteric ischemia. Prior notes reviewed, including admissions, discharges and consultations. laboratory results and imaging reviewed, basic labs and lytes wnl, notable for normal wbc ct. no shift/diff. however, normal t bili/LFTs, lipase_ severe electrolyte derangements, normal glucose; +hyponatremia and hypokalemia/ hypo-Mg, likely volume loss and 3rd spacing with bailee tube dysfunction. repletions with potassium IV, 2L fluids replenished and proper analgesia. EKG atrial fibrillation at 70 bpm , prolonged QTC interval. narrow QRS, ST and T wave segments and morphology normal. Nonspecific T wave abnormalities ED course - IV potassium and magnesium repletions - tylenol analgesia - IVF hydration - txs, coags - CT a/p with inflammatory changes around GB, does have acute bailee being managed with tube for now so likely etiology, tube in place coiled in GB. no perf, no free air under diaphragm; trace pelvic FF, otherwise no abdominal pathology noted - surg cs, with Dr Jose - who had been in touch with Dr Ruiz for IR; IR cs to Dr Hartmann. admit to med surg for medical management and surg cs, for bailee tube and further management of her cholecystitis. 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, admit to Dr Quevedo, admit to first, no beds at [facility] == 05/30/18 14:06 *DC/Admit/Observation/Transfer Diagnosis at time of Disposition: Hyponatremia, Hypokalemia Cholecystostomy tube dysfunction Qualifiers: Encounter type: initial encounter Qualified Code(s): T85.518A - Breakdown ( mechanical) of other gastrointestinal prosthetic devices, implants and grafts, initial encounter - Discharge Dispostion Condition at time of disposition: Stable Decision to Admit order: Yes Decision to Admit order Date/Time: 05/30/18 12:47 Decision to Admit Order Category Date Time Status Decision to Admit to Hospital Routine Admission 05/30/18 12:11 Active - Referrals - Patient Instructions - Post Discharge Activity
[2018-05-30 12:01] LABS: POTASSIUM 2.8 mmol/L (3.5-5.1)
[2018-05-30] MEDS ORDERED: POTASSIUM CHLORIDE TABS 20 MEQ TABLET.ER (FP) PO ONE ×2 (12:07→12:48)
[2018-05-30] MEDS ORDERED: SODIUM CHLORIDE 0.9% 500 ML INFUS.BAG IV ONE (12:13)
--- NOTE | 2018-05-30 12:29 | EKG ---
Test Reason : Blood Pressure : / mmHG Vent. Rate : 070 BPM Atrial Rate : 326 BPM P-R Int : 000 ms QRS Dur : 098 ms QT Int : 454 ms P-R-T Axes : 000 -23 008 degrees QTc Int : 490 ms ATRIAL FIBRILLATION INCOMPLETE RIGHT BUNDLE BRANCH BLOCK NONSPECIFIC ST AND T WAVE ABNORMALITY PROLONGED QT ABNORMAL ECG WHEN COMPARED WITH ECG OF 10-MAY-2018 09:05, NO SIGNIFICANT CHANGE WAS FOUND Confirmed by GISELLA BAR, OTTO ([id number]) on 05/30/2018 12:29:11 PM Referred By: STEVIE MAKI Confirmed By:OTTO OBANDO MD
[2018-05-30] MEDS ORDERED: KCL 10 MEQ IVPB 10 MEQ/100 ML INFUS.BAG IVPB ONE ×2 (12:48→14:28)
[2018-05-30] MEDS: KCL 10 MEQ IVPB 10 MEQ/100 ML INFUS.BAG IVPB SCH ×3 (12:57→18:01)
[2018-05-30 13:09] LABS: LIPASE 297 U/L (73-393)
--- NOTE | 2018-05-30 13:29 | CONSULT ---
Consult Consult Specialty:: General Surgery Reason for Consultation:: abdominal pain after cholecystogram - History of Present Illness Chief Complaint: abdominal pain History of Present Illness: 88 year-old female with a PMH significant for HTN, afib on Eliquis, DVT, acute cholecystitis s/p pneumoperitoneum s/p cholecystostomy (05/11/18, [facility]a) because she was unable to tolerate pneumoperitonium. Completed two week course of antibiotics. Presents today with RUQ pain x 2 days. pain is reportedly improving. we were asked to assess. 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 No: Alzheimer's, CVA, Dementia , Migraine, Multiple Sclerosis, Peripheral Neuropathy, Parkinson's, Seizure, Syncope, TIA, Vertigo Cardio/Vascular: Yes: HTN, Murmur (systolic at RSB). No: AFIB, Aneurysm, Aortic Insufficiency, Aortic Stenosis, CAD, CHF, Deep Vein Thrombosis, Hyperlipdemia, MO, Mitral Insufficiency, Mitral Stenosis, Pulmonary Hypertension , Other Pulmonary: Yes: Bronchitis. No: Asthma, Cancer, COPD, O2 Dependent, Pneumonia, Previously Intubated, Pulmonary Embolus, Pulmonary Fibrosis, Sleep Apnea, Other Gastrointestinal: Yes: GERD, Irritable Bowel Disease. No: Ascites, Cancer, Constipation, Crohn's Disease, Diverticulitis, Diverticulosis, Esophageal Varices, Gastritis, GI Bleed, Hemorrhoids, Hiatal Hernia, Inflamatory Bowel Disease, Pancreatitis, Peptic Ulcer Disease, Ulcerative Colitis, Other Psych: Yes: Anxiety Musculoskeletal: Yes: Osteoarthritis (Knees) ENT: Yes: Allergic Rhinitis - Past Surgical History Past Surgical History: Yes: Joint Replacement (both Knees) - Alcohol/Substance Use Hx Alcohol Use: No - Smoking History Smoking history: Never smoked Have you smoked in the past 12 months: No Aproximately how many cigarettes per day: 0 Home Medications - Allergies Allergies/Adverse Reactions: Allergies Allergy/AdvReac Type Severity Reaction Status Date / Time prednisone Allergy Rash Verified 05/30/18 10:14 pseudoephedrine AdvReac Intermediate palpitation Verified 05/30/18 10:13 s lexpro Allergy Intermediate itching Uncoded 05/30/18 10:13 - Home Medications Home Medications: Ambulatory Orders Amlodipine Besylate 2.5 mg PO DAILY 05/30/18 Apixaban [Eliquis] 2.5 mg PO BID 05/30/18 Losartan/Hydrochlorothiazide [Losartan-Hctz 100-12.5 mg Tab] 1 tab PO DAILY 12/08 Review of Systems - Review of Systems Constitutional: denies: Chills, Fever Eyes: denies: Blind Spots, Recent Change in Vision HENT: denies: Difficult Swallowing, Throat Pain Neck: denies: Decreased ROM, Tenderness Cardiovascular: denies: Chest Pain, Palpitations Respiratory: denies: Cough, SOB Gastrointestinal: reports: Abdominal Pain. denies: Constipation, Diarrhea, Nausea, Vomiting Genitourinary: denies: Burning, Discharge, Dysuria Breasts: reports: No Symptoms Reported. denies: Pain Musculoskeletal: denies: Decreased ROM, Muscle Pain Integumentary: denies: Eczema, Erythema Neurological: denies: Seizure, Syncope, Tremors Endocrine: denies: Unexplained Weight Gain, Unexplained Weight Loss Hematology/Lymphatic: denies: Easily Bruised, Excessive Bleeding Psychiatric: reports: Depression. denies: Anxiety Physical Exam Vital Signs: Vital Signs Temperature 98.2 F 05/30/18 10:12 Pulse Rate 68 05/30/18 12:58 Respiratory Rate 18 05/30/18 12:58 Blood Pressure 127/68 05/30/18 12:58 O2 Sat by Pulse Oximetry (%) 100 05/30/18 12:58 Vital Signs Period Temp Pulse Resp BP Sys/[place] Pulse Ox Last 24 Hr 97.5 F-98.2 F 63-98 16-18 117-189/66-89 98-100 Constitutional: Yes: Well Nourished, No Distress, Calm Eyes: Yes: Conjunctiva Clear, EOM Intact HENT: Yes: Atraumatic, Normocephalic Neck: Yes: Supple, Trachea Midline Cardiovascular: Yes: Regular Rate and Rhythm, S1, S2 Respiratory: Yes: Regular, CTA Bilaterally Gastrointestinal: Yes: Normal Bowel Sounds, Soft, Abdomen, Obese, Tenderness ( adjacent to cholecystotomy only). No: Ascites, Hernia, Palpable Mass, Pulsatile Mass, Tenderness, Epigastrium, Tenderness, Rebound, Vomiting ...Rectal Exam: Yes: Deferred Renal/: No: CVA Tenderness - Left, CVA Tenderness - Right Musculoskeletal: No: Muscle Pain, Muscle Weakness Extremities: No: Cool, Cyanosis Edema: No Peripheral Pulses WNL: Yes Integumentary: No: Incision, Jaundice, Pressure Ulcer, Rash Wound/Incision: Yes: Clean/Dry, Well Approximated Neurological: Yes: Alert Psychiatric: Yes: Alert, Oriented Labs: CBC, BMP 05/30/18 11:01 05/30/18 11:01 Imaging - Results Cat Scan: Report Reviewed, Image Reviewed Problem List - Problems (1) Cholecystostomy tube dysfunction Assessment/Plan: 88 yo female with Afib on eloquis with increased abdominal pain following a cholecystogram 3 days ago Medical and cardiology optimization IVF hydration correct electrolytes Hold eloquis Evaluation by cardiology - Is she any more optimized from a repeated general surgery procedure at present compared to previous? start heparin Drip adequate analgesia will follow Code(s): T85.518A - BREAKDOWN (MECHANICAL) OF GI PROSTH DEV/GRFT, INIT Qualifiers: Encounter type: initial encounter Qualified Code(s): T85.518A - Breakdown ( mechanical) of other gastrointestinal prosthetic devices, implants and grafts, initial encounter (2) Hypokalemia Code(s): E87.6 - HYPOKALEMIA (3) Hyponatremia Code(s): E87.1 - HYPO-OSMOLALITY AND HYPONATREMIA (4) Afib Code(s): I48.91 - UNSPECIFIED ATRIAL FIBRILLATION Qualifiers: Atrial fibrillation type: chronic Qualified Code(s): I48.2 - Chronic atrial fibrillation (5) Cholecystitis Code(s): K81.9 - CHOLECYSTITIS, UNSPECIFIED (6) HTN (hypertension) Code(s): I10 - ESSENTIAL (PRIMARY) HYPERTENSION Qualifiers: Hypertension type: essential hypertension Qualified Code(s): I10 - Essential (primary) hypertension
[2018-05-30 13:40] LABS: INR 1.54 (0.82-1.09); PROTHROMBIN TIME (PATIENT) 17.1 SEC (10.2-13.0)
[2018-05-30 13:49] LABS: ACTIVATED PTT 39.8 SECONDS (25.2-36.5)
[2018-05-30] MEDS ORDERED: MAGNESIUM SULF 50% (8.12 MEQ/2 ML-1 GM VIAL) IVPB ONE (14:06)
--- NOTE | 2018-05-30 14:57 | HP ---
CHIEF COMPLAINT: RUQ pain PCP: Dr. Barron HISTORY OF PRESENT ILLNESS: 88 year-old female with a PMH significant for HTN, afib on Eliquis, DVT, acute cholecystitis s/p pneumoperitoneum s/p cholecystostomy (05/11/18, [place]). Completed two week course of antibiotics. Presents today with RUQ pain x 2 days. ER course was notable for: (1) K 2.8, Mg 1.5, Na 126 (2) Total bili 1.4 (3) Cr 1.3, baseline 0.8 (4) NS x 2L; potassium PO 40meq plus 3 runs; Mg x 1 Recent Travel: No PAST MEDICAL HISTORY: Hypertension Atrial fibrillation DVT Acute cholecystitis Pneumoperitoneum (05/11/18) PAST SURGICAL HISTORY: Permanent pacemaker Bilateral knee replacement Cholecystostomy (05/11/18) Social History: lives with family Smoking: no Alcohol: no Drugs: no Family History: Allergies prednisone Allergy (Verified 05/30/18 10:14) Rash pseudoephedrine Adverse Reaction (Intermediate, Verified 05/30/18 10:13) palpitations lexpro Allergy (Intermediate, Uncoded 05/30/18 10:13) itching HOME MEDICATIONS: Home Medications Medication Instructions Recorded Amlodipine Besylate 2.5 mg PO DAILY 05/30/18 Apixaban [Eliquis] 2.5 mg PO BID 05/30/18 Losartan/Hydrochlorothiazide 1 tab PO DAILY 05/30/18 [Losartan-Hctz 100-12.5 mg Tab] REVIEW OF SYSTEMS CONSTITUTIONAL: Absent: fever, chills, diaphoresis, generalized weakness, malaise, loss of appetite, weight change HEENT: Absent: rhinorrhea, nasal congestion, throat pain, throat swelling, difficulty swallowing, mouth swelling, ear pain, eye pain, visual changes CARDIOVASCULAR: Absent: chest pain, syncope, palpitations, irregular heart rate, lightheadedness , peripheral edema RESPIRATORY: Absent: cough, shortness of breath, dyspnea with exertion, orthopnea, wheezing, stridor, hemoptysis GASTROINTESTINAL: +RUQ pain Absent: abdominal pain, abdominal distension, nausea, vomiting, diarrhea, constipation, melena, hematochezia GENITOURINARY: Absent: dysuria, frequency, urgency, hesitancy, hematuria, flank pain, genital pain MUSCULOSKELETAL: Absent: myalgia, arthralgia, joint swelling, back pain, neck pain SKIN: Absent: rash, itching, pallor HEMATOLOGIC/IMMUNOLOGIC: Absent: easy bleeding, easy bruising, lymphadenopathy, frequent infections ENDOCRINE: Absent: unexplained weight gain, unexplained weight loss, heat intolerance, cold intolerance NEUROLOGIC: Absent: headache, focal weakness or paresthesias, dizziness, unsteady gait, seizure, mental status changes, bladder or bowel incontinence PSYCHIATRIC: Absent: anxiety, depression, suicidal or homicidal ideation, hallucinations. PHYSICAL EXAMINATION Vital Signs - 24 hr 05/30/18 05/30/18 05/30/18 10:12 11:21 12:58 Temperature 98.2 F Pulse Rate 72 Pulse Rate [ 98 H 68 Right Radial] Respiratory 16 16 18 Rate Blood Pressure 142/79 Blood Pressure 117/66 127/68 [Right Arm] O2 Sat by Pulse 100 98 100 Oximetry (%) GENERAL: Awake, alert, and fully oriented, in no acute distress. HEAD: Normal with no signs of trauma. EYES: Pupils equal, round and reactive to light, extraocular movements intact, sclera anicteric, conjunctiva clear. No lid lag. EARS, NOSE, THROAT: Ears normal, nares patent, oropharynx clear without exudates. Moist mucous membranes. NECK: Normal range of motion, supple without lymphadenopathy, JVD, or masses. LUNGS: Breath sounds equal, clear to auscultation bilaterally. No wheezes, and no crackles. No accessory muscle use. HEART: Regular rate and rhythm, normal S1 and S2 without murmur, rub or gallop. ABDOMEN: Soft, nontender, not distended, normoactive bowel sounds, no guarding, no rebound, no masses. No hepatomegaly or splenomegaly. MUSCULOSKELETAL: Normal range of motion at all joints. No bony deformities or tenderness. No CVA tenderness. UPPER EXTREMITIES: 2+ pulses, warm, well-perfused. No cyanosis. No clubbing. No peripheral edema. LOWER EXTREMITIES: 2+ pulses, warm, well-perfused. No calf tenderness. No peripheral edema. NEUROLOGICAL: Cranial nerves II-XII intact. Normal speech. Normal gait. PSYCHIATRIC: Cooperative. Good eye contact. Appropriate mood and affect. SKIN: Warm, dry, normal turgor, no rashes or lesions noted, normal capillary refill. Laboratory Results - last 24 hr 05/30/18 05/30/18 05/30/18 11:01 11:01 11:01 WBC 6.8 RBC 5.49 H Hgb 12.7 Hct 39.7 MCV 72.3 L MCH 23.1 L MCHC 32.0 RDW 14.0 Plt Count 233 MPV 9.8 Absolute Neuts (auto) 4.4 Neutrophils % 64.2 Lymphocytes % 24.6 Monocytes % 10.6 H Eosinophils % 0.4 Basophils % 0.2 PT with INR INR PTT (Actin FS) Sodium 126 L Potassium 2.8 L* Chloride 94 L Carbon Dioxide 21 Anion Gap 11 BUN 21 H Creatinine 1.3 Creat Clearance w eGFR 38.66 Random Glucose 146 H Lactic Acid 1.8 Calcium 8.2 L Magnesium Total Bilirubin 1.4 H AST 42 H ALT 30 Alkaline Phosphatase 77 D Total Protein 7.0 Albumin 3.2 L Lipase 297 05/30/18 05/30/18 12:45 12:45 WBC RBC Hgb Hct MCV MCH MCHC RDW Plt Count MPV Absolute Neuts (auto) Neutrophils % Lymphocytes % Monocytes % Eosinophils % Basophils % PT with INR 17.1 H INR 1.54 H PTT (Actin FS) 39.8 H Sodium Potassium Chloride Carbon Dioxide Anion Gap BUN Creatinine Creat Clearance w eGFR Random Glucose Lactic Acid Calcium Magnesium 1.5 L Total Bilirubin AST ALT Alkaline Phosphatase Total Protein Albumin Lipase ASSESSMENT/PLAN: 88 year-old female with a PMH significant for HTN, afib on Eliquis, DVT, acute cholecystitis s/p pneumoperitoneum s/p cholecystostomy (05/11/18, [place]). Completed two week course of antibiotics. Presents today with RUQ pain x 2 days. Cholecystitis s/p cholecystostomy 05/11/18 --no fever, no leukocytosis --CTAP: perc cholecystostomy tube well-seated --elevated total bili on admission, trending down 1.4-->1.2 --discussion with Dr. Salazar; on 05/09 Dr. Denny injected dye, biliary tree not visualized, gallbladder is obstructed, we will transfer patient to [facility] for possible ERCP --repeat LFTs in am --will need GI consult and cardiac clearance Hypertension --continue amlodipine, losartan; holding home HCTZ --became severely hypertensive during surgery on 05/11; needs medical optimization for possible surgery on this admission --cardiac consult requested Hypokalemia --K 2.8 in ED, given PO 40meq and 3 runs; improved to 3.3 but infusions ongoing; repeat bmp at 8:00pm --ECG reviewed, no signs of cardiac involvement Hypomagnesemia --Mg 1.5 --repleting --repeat bmp pending 8:00pm Atrial fibrillation --rate controlled on no jamel blocking agents --on transfer, recommend d/c'ing Eliquis and starting heparin drip FEN Fluids: D5NS@ 50mL/hr Electrolytes: replete as indicated Nutrition: NPO DVT prophylaxis: on Eliquis; d/c upon transfer to [facility] and start heparin drip Physical therapy Dispo: continues to require inpatient care. Full code. Visit type - Emergency Visit Emergency Visit: Yes ED Registration Date: 05/30/18 Care time: The patient presented to the Emergency Department on the above date and was hospitalized for further evaluation of their emergent condition. - New Patient This patient is new to me today: Yes Date on this admission: 05/30/18 - Critical Care Critical Care patient: No
[2018-05-30 16:40] LABS: HEMATOCRIT 38.9 % (32.4-45.2); HEMOGLOBIN 12.1 GM/dl (10.7-15.3); MCH 22.3 pg (25.7-33.7); MEAN CELL VOLUME 71.9 fl (80-96); MEAN PLT VOLUME 9.4 fl (7.5-11.1); PLATELET COUNT 206 K/MM3 (134-434); RBC 5.41 M/mm3 (3.60-5.2); RDW 13.9 % (11.6-15.6); WHITE BLOOD COUNT 6.2 K/mm3 (4.0-10.8)
[2018-05-30 16:52] LABS: ALK PHOS 70 U/L (45-117); ANION GAP 8 MMOL/L (8-16); BILIRUBIN,DIRECT 0.4 mg/dL (0.0-0.2); BILIRUBIN,TOTAL 1.2 mg/dl (0.2-1); BLOOD UREA NITROGEN 18 mg/dl (7-18); CALCIUM 8.3 mg/dl (8.5-10); CHLORIDE 102 mmol/L (98-107); CO2 23 mmol/L (21-32); CREATININE 1.1 mg/dl (0.55-1.3); GLUCOSE,RANDOM 83 mg/dl (74-106); MAGNESIUM 1.6 mg/dL (1.8-2.4); POTASSIUM 3.3 mmol/L (3.5-5.1); SGOT/AST 34 U/L (15-37); SGPT/ALT 25 U/L (13-61); SODIUM 133 mmol/L (136-145); TOT PROT 6.5 g/dl (6.4-8.2)
[2018-05-30] MEDS: DEXTROSE 5%-NORMAL SALINE 1,000 ML IV SCH (17:01)
[2018-05-30] MEDS: LOSARTAN POTASSIUM 50 MG TABLET (FP) PO SCH (18:54)
[2018-05-30 20:35] LABS: PLATELET ESTIMATE ADEQUATE
[2018-05-30 20:44] LABS: ANION GAP 5 MMOL/L (8-16); BLOOD UREA NITROGEN 18 mg/dl (7-18); CALCIUM 8.5 mg/dl (8.5-10); CHLORIDE 106 mmol/L (98-107); CO2 25 mmol/L (21-32); GLUCOSE,RANDOM 78 mg/dl (74-106); MAGNESIUM 2.1 mg/dL (1.8-2.4); POTASSIUM 4.1 mmol/L (3.5-5.1); SODIUM 136 mmol/L (136-145)
[2018-05-30] MEDS ORDERED: HEPARIN NA (PORCINE) 5,000 UNITS/ML 1ML VIAL IVPUSH PRN (21:59)
[2018-05-30] MEDS ORDERED: APIXABAN 2.5 MG TABLET PO SCH (22:00)
[2018-05-30] MEDS: HEPARIN - 25,000 UNIT in SODIUM CHLORIDE 495 ML IV SCH (23:29)
[2018-05-31 08:00] LABS: BASO % 0.6 % (0-2.0); EOS % 1.3 % (0-4.5); HEMATOCRIT 42.3 % (32.4-45.2); HEMOGLOBIN 13.5 GM/dL (10.7-15.3); LYMPH % 41.9 % (8-40); MCH 22.4 pg (25.7-33.7); MEAN CELL VOLUME 69.9 fl (80-96); MEAN PLT VOLUME 9.1 fl (7.5-11.1); MONO % 8.6 % (3.8-10.2); NEUT % 47.6 % (42.8-82.8); PLATELET COUNT 185 K/MM3 (134-434); RBC 6.06 M/mm3 (3.60-5.2); RDW 15.6 % (11.6-15.6); WHITE BLOOD COUNT 5.7 K/mm3 (4.0-10.0)
[2018-05-31 08:05] LABS: ALK PHOS 90 U/L (45-117); ANION GAP 9 MMOL/L (8-16); BILIRUBIN,DIRECT 0.4 mg/dL (0.0-0.2); BILIRUBIN,TOTAL 0.8 mg/dL (0.2-1); BLOOD UREA NITROGEN 15 mg/dL (7-18); CALCIUM 8.3 mg/dL (8.5-10.1); CHLORIDE 108 mmol/L (98-107); CO2 25 mmol/L (21-32); CREATININE 0.9 mg/dL (0.55-1.3); GLUCOSE,RANDOM 93 mg/dL (74-106); MAGNESIUM 2.1 mg/dL (1.8-2.4); POTASSIUM 3.4 mmol/L (3.5-5.1); SGOT/AST 35 U/L (15-37); SGPT/ALT 32 U/L (13-61); SODIUM 143 mmol/L (136-145); TOT PROT 7.4 g/dl (6.4-8.2)
[2018-05-31] MEDS ORDERED: POTASSIUM CHLORIDE TABS 20 MEQ TABLET.ER (FP) PO ONE (09:28)
[2018-05-31] MEDS ORDERED: PT OWN MED DRAWER 7, Y5N ONE ×2 (09:38→22:40)
[2018-05-31] MEDS: LOSARTAN POTASSIUM 50 MG TABLET (FP) PO SCH (09:43)
[2018-05-31] MEDS ORDERED: amLODIPine BESYLATE 2.5 MG TABLET (FP) PO SCH (10:00)
--- NOTE | 2018-05-31 10:49 | PN ---
Progress Note, Physician Chief Complaint: Cholecystectomy Tube Dysfunction Acute Cholecystitis s/p pneumoperitoneum s/p cholecystectomy History of Present Illness: Previous notes and events reviewed awake and alert NAD complain of pain to cholecystostomy tube site complain of colostomy - Current Medication List Current Medications: Active Medications Amlodipine Besylate (Norvasc -) 2.5 mg PO DAILY [facility] Last Admin: 05/31/18 09:43 Dose: 2.5 mg Dextrose/Sodium Chloride (D5-Ns -) 1,000 mls @ 75 mls/hr IV ASDIR [facility] Last Admin: 05/30/18 17:01 Dose: 75 mls/hr Heparin Sodium (Porcine) 25, (000 unit/ Sodium Chloride) 500 mls @ 20 mls/hr IV TITR [facility] TO [facility] Last Admin: 05/30/18 23:29 Dose: 1,000 unit/hr, 20 mls/hr Losartan Potassium (Cozaar -) 100 mg PO DAILY [facility] Last Admin: 05/31/18 09:43 Dose: 100 mg - Objective Vital Signs: Vital Signs Temperature 97.9 F 05/31/18 05:00 Pulse Rate 61 05/31/18 05:00 Respiratory Rate 20 05/31/18 05:00 Blood Pressure 163/87 05/31/18 05:00 O2 Sat by Pulse Oximetry (%) 100 05/30/18 12:58 Constitutional: Yes: No Distress, Calm Eyes: Yes: Conjunctiva Clear HENT: Yes: Atraumatic Cardiovascular: Yes: Regular Rate and Rhythm Respiratory: Yes: Regular, CTA Bilaterally Gastrointestinal: Yes: Normal Bowel Sounds, Soft, Tenderness (RUQ), Other ( Cholecystostomy tube) Genitourinary: Yes: Incontinence Musculoskeletal: Yes: Muscle Weakness Extremities: Yes: WNL Edema: No Neurological: Yes: Alert, Oriented Psychiatric: Yes: Alert, Oriented Labs: CBC, BMP 05/31/18 06:05 05/31/18 06:05 INR, PTT INR 1.54 (0.82-1.09) H 05/30/18 12:45 Problem List - Problems (1) Cholecystostomy tube dysfunction Assessment/Plan: -Surgery on Board -monitor drain output qshift -pending cardiology clearance if surgical procedure needed Code(s): T85.518A - BREAKDOWN (MECHANICAL) OF GI PROSTH DEV/GRFT, INIT Qualifiers: Encounter type: initial encounter Qualified Code(s): T85.518A - Breakdown ( mechanical) of other gastrointestinal prosthetic devices, implants and grafts, initial encounter (2) Afib Assessment/Plan: -Eliquis on hold -Heparin drip Code(s): I48.91 - UNSPECIFIED ATRIAL FIBRILLATION Qualifiers: Atrial fibrillation type: chronic Qualified Code(s): I48.2 - Chronic atrial fibrillation (3) Cholecystitis Assessment/Plan: -surgery on board -IV hydration -NPO -GI consult Code(s): K81.9 - CHOLECYSTITIS, UNSPECIFIED (4) HTN (hypertension) Assessment/Plan: -continue Amlodipine and Losartan Code(s): I10 - ESSENTIAL (PRIMARY) HYPERTENSION Qualifiers: Hypertension type: essential hypertension Qualified Code(s): I10 - Essential (primary) hypertension (5) Hypokalemia Assessment/Plan: -K 3.4--KCl 40mEq PO ordered -monitor electrolytes daily and repelte as needed Code(s): E87.6 - HYPOKALEMIA (6) Constipation Assessment/Plan: -start on Miralax Code(s): K59.00 - CONSTIPATION, UNSPECIFIED Assessment/Plan see problem list dvt ppx
[2018-05-31] MEDS: POLYETHYLENE GLYCOL 3350 119 GM BTL PO SCH (12:01)
[2018-05-31] MEDS: DEXTROSE 5%-NORMAL SALINE 1,000 ML IV SCH ×2 (13:35→16:30)
--- NOTE | 2018-05-31 14:40 | CON.GI ---
Consult Consult Specialty:: GI Referred by:: Dr. Patrick Real Reason for Consultation:: Cholecystostomy tube - History of Present Illness Chief Complaint: RUQ pain History of Present Illness: 88F who underwent Laparoscopy 05/09/18 for evaluation of acute cholecystitis. Noted pneumoperitneum, cirrhotic appearing liver and BP became uncontrolled. cholecystecotmy aborted and cholecystostomy placed. was on Abx for 2 weeks. Admitted to [place] for eval of abdominal pain. Had cholangiogram 05/28. No report but it appears that there was non-visualization of the biliary tract c/w persistent cystic duct obstruction. Surgery following. Asked to evaluate for ERCP. - History Source History Provided By: Patient, Medical Record - Past Medical History Cardio/Vascular: Yes: HTN, Murmur (systolic at RSB) Pulmonary: Yes: Bronchitis Gastrointestinal: Yes: GERD, Irritable Bowel Disease ...: No Psych: Yes: Anxiety Musculoskeletal: Yes: Osteoarthritis (Knees) ENT: Yes: Allergic Rhinitis - Past Surgical History Past Surgical History: Yes: Joint Replacement (both Knees) Additional Surgical History: Recent laparoscopy with cholecystostomy - Alcohol/Substance Use Hx Alcohol Use: No - Smoking History Smoking history: Never smoked Have you smoked in the past 12 months: No Aproximately how many cigarettes per day: 0 - Social History ADL: Support Services Place of : Other ([place]) History of Recent Travel: No Home Medications - Allergies Allergies/Adverse Reactions: Allergies Allergy/AdvReac Type Severity Reaction Status Date / Time prednisone Allergy Rash Verified 05/30/18 10:14 pseudoephedrine AdvReac Intermediate palpitation Verified 05/30/18 10:13 s lexpro Allergy Intermediate itching Uncoded 05/30/18 10:13 - Home Medications Home Medications: Ambulatory Orders Amlodipine Besylate 2.5 mg PO DAILY 05/30/18 Apixaban [Eliquis] 2.5 mg PO BID 05/30/18 Losartan/Hydrochlorothiazide [Losartan-Hctz 100-12.5 mg Tab] 1 tab PO DAILY 12/08 Review of Systems - Review of Systems Constitutional: denies: Chills Gastrointestinal: reports: Abdominal Pain. denies: Nausea, Vomiting Physical Exam-GI Vital Signs: Vital Signs Temperature 97.5 F L 05/31/18 07:40 Pulse Rate 64 05/31/18 07:40 Respiratory Rate 18 05/31/18 07:40 Blood Pressure 141/98 05/31/18 07:40 O2 Sat by Pulse Oximetry (%) 100 05/30/18 12:58 Constitutional: Yes: Calm Eyes: No: Sclera Icterus Cardiovascular: Yes: Pulse Irregular (regular rate) Respiratory: Yes: CTA Bilaterally Gastrointestinal Inspection: Yes: Scars (trochar scars.), Other ( cholecystostomy tube in RUQ). No: Distention ...Auscultate: Yes: Normoactive Bowel Sounds ...Palpate: Yes: Tenderness (RUQ) ...Percussion: No: Tympanitic Edema: No (No LE Edema) Neurological: Yes: Alert Labs: CBC, BMP 05/31/18 06:05 05/31/18 06:05 INR, PTT INR 1.54 (0.82-1.09) H 05/30/18 12:45 Problem List - Problems (1) Cholecystitis Assessment/Plan: Non obstructive LFT pattern with persistent cystic duct obstruction noted cholangiogram No indication for ERCP Surgery is folloiwng. Advised medical optimization. 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
[2018-05-31] MEDS: HEPARIN - 25,000 UNIT in SODIUM CHLORIDE 495 ML IV SCH ×2 (17:08→22:42)
--- NOTE | 2018-05-31 17:09 | CON.CARD ---
Cardiology Consult (text) - Consultation Consultation Note: cc: abd pain hpi: 88 f hx htn, afib, here with abd pain. No cp sob palps dizzy loc pnd orthopnea le edema. Recently admitted for acute cholecystitis with plans for cholecystectomy, while in the OR BP elevated and surgery was stopped, received cholecystostomy tube. Returns with abd pain. pmh: per hpi psh: b/l TKR social: no tobacco fam: non contrib ros: per hpi; no n/v/d, fever gib hematuria vision changes; all others normal meds: Ambulatory Orders Amlodipine Besylate 2.5 mg PO DAILY 05/30/18 Apixaban [Eliquis] 2.5 mg PO BID 05/30/18 Losartan/Hydrochlorothiazide [Losartan-Hctz 100-12.5 mg Tab] 1 tab PO DAILY 12/08 pe: Vital Signs Period Temp Pulse Resp BP Sys/[place] Pulse Ox Last 24 Hr 97.5 F-98.2 F 20-77 17-20 141-189/74-98 nad, no jvd irreg s1s2 no mrg cta b/l, nl eff aaox3 no le e/c/c abd nd pos bs, ruq abd tender pos dp/pt no diaphoresis/jaundice Laboratory Last Values WBC 5.7 K/mm3 (4.0-10.0) 05/31/18 06:05 RBC 6.06 M/mm3 (3.60-5.2) H 05/31/18 06:05 Hgb 13.5 GM/dL (10.7-15.3) 05/31/18 06:05 Hct 42.3 % (32.4-45.2) 05/31/18 06:05 MCV 69.9 fl (80-96) L 05/31/18 06:05 MCH 22.4 pg (25.7-33.7) L 05/31/18 06:05 MCHC 32.0 g/dl (32.0-36.0) 05/31/18 06:05 RDW 15.6 % (11.6-15.6) 05/31/18 06:05 Plt Count 185 K/MM3 (134-434) 05/31/18 06:05 MPV 9.1 fl (7.5-11.1) 05/31/18 06:05 Absolute Neuts (auto) 2.7 K/mm3 (1.5-8.0) 05/31/18 06:05 Neutrophils % 47.6 % (42.8-82.8) 05/31/18 06:05 Neutrophils % (Manual) 60.0 % (42.8-82.8) 05/30/18 16:00 Lymphocytes % 41.9 % (8-40) H D 05/31/18 06:05 Lymphocytes % (Manual) 34.0 % (8-40) 05/30/18 16:00 Monocytes % 8.6 % (3.8-10.2) 05/31/18 06:05 Monocytes % (Manual) 6 % (3.8-10.2) 05/30/18 16:00 Eosinophils % 1.3 % (0-4.5) 05/31/18 06:05 Basophils % 0.6 % (0-2.0) 05/31/18 06:05 Nucleated RBC % 0 % (0-0) 05/31/18 06:05 Hypochromia 2+ 05/30/18 16:00 Platelet Estimate Adequate 05/30/18 16:00 Microcytosis 1+ 05/30/18 16:00 PT with INR 17.1 SEC (10.2-13.0) H 05/30/18 12:45 INR 1.54 (0.82-1.09) H 05/30/18 12:45 PTT (Actin FS) 136.2 SECONDS (25.2-36.5) H 05/31/18 11:50 Sodium 143 mmol/L (136-145) 05/31/18 06:05 Potassium 3.4 mmol/L (3.5-5.1) L 05/31/18 06:05 Chloride 108 mmol/L (98-107) H 05/31/18 06:05 Carbon Dioxide 25 mmol/L (21-32) 05/31/18 06:05 Anion Gap 9 MMOL/L (8-16) 05/31/18 06:05 BUN 15 mg/dL (7-18) 05/31/18 06:05 Creatinine 0.9 mg/dL (0.55-1.3) 05/31/18 06:05 Creat Clearance w eGFR 59.09 (>60) 05/31/18 06:05 Random Glucose 93 mg/dL (74-106) 05/31/18 06:05 Lactic Acid 1.8 mmol/L (0.4-2.0) 05/30/18 11:01 Calcium 8.3 mg/dL (8.5-10.1) L 05/31/18 06:05 Magnesium 2.1 mg/dL (1.8-2.4) 05/31/18 06:05 Total Bilirubin 0.8 mg/dL (0.2-1) 05/31/18 06:05 Direct Bilirubin 0.4 mg/dL (0.0-0.2) H 05/31/18 06:05 AST 35 U/L (15-37) 05/31/18 06:05 ALT 32 U/L (13-61) 05/31/18 06:05 Alkaline Phosphatase 90 U/L (45-117) 05/31/18 06:05 Total Protein 7.4 g/dl (6.4-8.2) 05/31/18 06:05 Albumin 3.0 g/dl (3.4-5.0) L 05/31/18 06:05 Lipase 297 U/L (73-393) 05/30/18 11:01 Blood Type O NEGATIVE 05/30/18 12:45 Antibody Screen Negative 05/30/18 12:45 echo 12/03: nl lv s/f, nl rv s/f, nl atria size, nl rvsp, no sig valve path cxr: no sig chf ecg: afib, rate ok, no ischemic changes a/p: 88 f hx htn, afib, here with abd pain. acute bailee, s/p cholecystostomy - cholecystectomy aborted due to hypertension during last admission - now s/p cholecystostomy tube - plan for cholecystectomy -no cardiac contraindications (intermediate risk) to planned cholecystectomy - increasing amlodipine to 5 mg daily as below -can hold AC as doing and resume eliquis post op when possible -heart rate is controlled w/o meds but can use iv lopressor if has rvr while npo afib: -rate controlled off meds - holding eliquis for possible surgery - on heparin gtt htn: -occasional elevated BP, generally controlled - increase amlodipine to 5 mg daily, can uptitrate to 10 mg daily if BP remains elevated -cont losartan
[2018-05-31] MEDS ORDERED: amLODIPine BESYLATE 5 MG TABLET (FP) PO SCH (17:21)
--- NOTE | 2018-05-31 18:55 | PN ---
Progress Note, Physician Chief Complaint: abdominal pain History of Present Illness: 88 year-old female with a PMH significant for HTN, afib on Eliquis, DVT, acute cholecystitis s/p pneumoperitoneum s/p cholecystostomy (05/11/18, [place]) because she was unable to tolerate pneumoperitonium. Completed two week course of antibiotics. Presents today with RUQ pain x 2 days. pain is reportedly improving. we were asked to assess. - Current Medication List Current Medications: Active Medications Amlodipine Besylate (Norvasc -) 5 mg PO DAILY [facility] Dextrose/Sodium Chloride (D5-Ns -) 1,000 mls @ 75 mls/hr IV ASDIR [facility] Last Admin: 05/31/18 13:35 Dose: 75 mls/hr Heparin Sodium (Porcine) 25, (000 unit/ Sodium Chloride) 500 mls @ 20 mls/hr IV TITR [facility] Last Admin: 05/31/18 17:08 Dose: 850 unit/hr, 17 mls/hr Losartan Potassium (Cozaar -) 100 mg PO DAILY [facility] Last Admin: 05/31/18 09:43 Dose: 100 mg Polyethylene Glycol (Miralax (For Daily Use) -) 17 gm PO DAILY [facility] Last Admin: 05/31/18 12:01 Dose: 17 gm - Objective Vital Signs: Vital Signs Temperature 97.2 F L 05/31/18 16:20 Pulse Rate 73 05/31/18 16:20 Respiratory Rate 18 05/31/18 16:20 Blood Pressure 119/62 05/31/18 16:20 O2 Sat by Pulse Oximetry (%) 100 05/30/18 12:58 Constitutional: Yes: Well Nourished, No Distress, Calm Eyes: Yes: Conjunctiva Clear, EOM Intact HENT: Yes: Atraumatic, Normocephalic Neck: Yes: Supple, Trachea Midline Cardiovascular: Yes: Regular Rate and Rhythm, S1, S2 Respiratory: Yes: Regular, CTA Bilaterally Gastrointestinal: Yes: Normal Bowel Sounds, Soft, Tenderness (adjacent to cholecystostomy), Other (RUQ cholecystostomy). No: Tenderness, Epigastrium, Tenderness, Rebound Genitourinary: No: CVA Tenderness - Left, CVA Tenderness - Right Musculoskeletal: No: Muscle Pain, Muscle Weakness Extremities: No: Cool, Cyanosis Edema: No Peripheral Pulses WNL: Yes Peripheral Pulses: Left Radial: 2+, Right Radial: 2+, Left Doralis Pedis: 2+, Right Dorsalis Pedis: 2+, Left Femoral: 2+, Right Femoral: 2+ Integumentary: No: Jaundice, Laceration, Tenting Neurological: Yes: Alert, Oriented Psychiatric: Yes: Alert, Oriented Labs: CBC, BMP 05/31/18 06:05 05/31/18 06:05 INR, PTT INR 1.54 (0.82-1.09) H 05/30/18 12:45 Problem List - Problems (1) Cholecystostomy tube dysfunction Assessment/Plan: 88 yo female with Afib on eloquis with increased abdominal pain following a cholecystogram 3 days ago, Plan for return to OR for cholecystetcomy Medical and cardiology optimization IVF hydration NPO after midnight 06/03 correct electrolytes Hold Heparin Drip at 5am on 06/04 Discussed with patient risks, benefits and alternatives of laparoscopic possible open cholecystectomy, including but not limited to bleeding, infection , injury to adjacent structures, leak or injury, intraabdominal abscess, incisional hernia, need for further procedures, ; alternatives include antibiotics, delayed or no surgery - risks of this include failure of nonoperative therapy, perforation, sepsis, recurrence, . Patient desires to proceed with operation - will take to OR for above. Informed consent signed for same. adequate analgesia will follow Code(s): T85.518A - BREAKDOWN (MECHANICAL) OF GI PROSTH DEV/GRFT, INIT Qualifiers: Encounter type: initial encounter Qualified Code(s): T85.518A - Breakdown ( mechanical) of other gastrointestinal prosthetic devices, implants and grafts, initial encounter (2) Hypokalemia Code(s): E87.6 - HYPOKALEMIA (3) Hyponatremia Code(s): E87.1 - HYPO-OSMOLALITY AND HYPONATREMIA (4) Afib Code(s): I48.91 - UNSPECIFIED ATRIAL FIBRILLATION Qualifiers: Atrial fibrillation type: chronic Qualified Code(s): I48.2 - Chronic atrial fibrillation (5) Cholecystitis Code(s): K81.9 - CHOLECYSTITIS, UNSPECIFIED (6) HTN (hypertension) Code(s): I10 - ESSENTIAL (PRIMARY) HYPERTENSION Qualifiers: Hypertension type: essential hypertension Qualified Code(s): I10 - Essential (primary) hypertension
[2018-06-01] MEDS: DEXTROSE 5%-NORMAL SALINE 1,000 ML IV SCH ×2 (06:03→17:35)
[2018-06-01 08:03] LABS: HEMATOCRIT 41.3 % (32.4-45.2); HEMOGLOBIN 13.1 GM/dL (10.7-15.3); MCH 22.4 pg (25.7-33.7); MCHC 31.7 g/dl (32.0-36.0); MEAN CELL VOLUME 70.6 fl (80-96); MEAN PLT VOLUME 8.8 fl (7.5-11.1); PLATELET COUNT 185 K/MM3 (134-434); RBC 5.85 M/mm3 (3.60-5.2); RDW 15.4 % (11.6-15.6); WHITE BLOOD COUNT 5.2 K/mm3 (4.0-10.0)
[2018-06-01 08:27] LABS: ALBUMIN 2.9 g/dl (3.4-5.0); ALK PHOS 89 U/L (45-117); ANION GAP 6 MMOL/L (8-16); BILIRUBIN,TOTAL 0.7 mg/dL (0.2-1); BLOOD UREA NITROGEN 10 mg/dL (7-18); CALCIUM 8.6 mg/dL (8.5-10.1); CHLORIDE 109 mmol/L (98-107); CO2 25 mmol/L (21-32); CREATININE 0.7 mg/dL (0.55-1.3); GLUCOSE,RANDOM 97 mg/dL (74-106); POTASSIUM 3.7 mmol/L (3.5-5.1); SGOT/AST 30 U/L (15-37); SGPT/ALT 29 U/L (13-61); SODIUM 139 mmol/L (136-145); TOT PROT 7.5 g/dl (6.4-8.2)
--- NOTE | 2018-06-01 10:04 | PN ---
Progress Note, Physician Chief Complaint: patient seen and examined in bed cholecytectomy tube is draining yellowish fluid - Current Medication List Current Medications: Active Medications Amlodipine Besylate (Norvasc -) 5 mg PO DAILY [facility] Dextrose/Sodium Chloride (D5-Ns -) 1,000 mls @ 75 mls/hr IV ASDIR [facility] Last Admin: 06/01/18 06:03 Dose: 75 mls/hr Heparin Sodium (Porcine) 25, (000 unit/ Sodium Chloride) 500 mls @ 20 mls/hr IV TITR [facility] Last Infusion: 06/01/18 08:39 Dose: 750 unit/hr, 15 mls/hr Losartan Potassium (Cozaar -) 100 mg PO DAILY [facility] Last Admin: 05/31/18 09:43 Dose: 100 mg Polyethylene Glycol (Miralax (For Daily Use) -) 17 gm PO DAILY [facility] Last Admin: 05/31/18 12:01 Dose: 17 gm - Objective Vital Signs: Vital Signs Temperature 97.8 F 06/01/18 06:00 Pulse Rate 77 06/01/18 06:00 Respiratory Rate 18 06/01/18 06:00 Blood Pressure 158/99 06/01/18 06:00 O2 Sat by Pulse Oximetry (%) 100 05/30/18 12:58 Constitutional: Yes: Calm Cardiovascular: Yes: Regular Rate and Rhythm, S1, S2 Respiratory: Yes: CTA Bilaterally Gastrointestinal: Yes: Tenderness (at the site of the tube, RUQ) Edema: No Neurological: Yes: Alert, Oriented Labs: CBC, BMP 06/01/18 06:30 06/01/18 06:30 INR, PTT INR 1.54 (0.82-1.09) H 05/30/18 12:45 Problem List - Problems (1) Cholecystostomy tube dysfunction Assessment/Plan: surgery on board pre op cardiac clearance noted full liquid diet ivf and iv heparin eliquis on hold electrolyte abnormalities corrected Code(s): T85.518A - BREAKDOWN (MECHANICAL) OF GI PROSTH DEV/GRFT, INIT Qualifiers: Encounter type: initial encounter Qualified Code(s): T85.518A - Breakdown ( mechanical) of other gastrointestinal prosthetic devices, implants and grafts, initial encounter (2) Afib Assessment/Plan: iv heparin , eliquis on hold iv lopressoer prn if needed for rate control- currently rate control Code(s): I48.91 - UNSPECIFIED ATRIAL FIBRILLATION Qualifiers: Atrial fibrillation type: chronic Qualified Code(s): I48.2 - Chronic atrial fibrillation (3) HTN (hypertension) Assessment/Plan: amy Code(s): I10 - ESSENTIAL (PRIMARY) HYPERTENSION Qualifiers: Hypertension type: essential hypertension Qualified Code(s): I10 - Essential (primary) hypertension
[2018-06-01] MEDS: POLYETHYLENE GLYCOL 3350 119 GM BTL PO SCH (10:10)
[2018-06-01] MEDS: LOSARTAN POTASSIUM 50 MG TABLET (FP) PO SCH (10:10)
--- NOTE | 2018-06-01 15:55 | PN ---
Progress Note (short form) - Note Progress Note: s: stable RUQ pain. no chest pain, palps, dyspnea, edema. Vital Signs Period Temp Pulse Resp BP Sys/Butterfield Pulse Ox Last 24 Hr 97 F-97.8 F 66-81 18-18 145-188/75-99 nad, no jvd irreg s1s2 no mrg cta b/l, nl eff aaox3 no le e/c/c abd nd pos bs, ruq abd tender pos dp/pt no diaphoresis/jaundice Current Medications Amlodipine Besylate (Norvasc -) 5 mg PO DAILY [facility] Last Admin: 06/01/18 10:10 Dose: 5 mg Heparin Sodium (Porcine) 25, (000 unit/ Sodium Chloride) 500 mls @ 20 mls/hr IV TITR [facility] Stop: 06/04/18 08:00 Last Infusion: 06/01/18 08:39 Dose: 750 unit/hr, 15 mls/hr Dextrose/Sodium Chloride (D5-Ns -) 1,000 mls @ 75 mls/hr IV ASDIR [facility] Losartan Potassium (Cozaar -) 100 mg PO DAILY [facility] Polyethylene Glycol (Miralax (For Daily Use) -) 17 gm PO DAILY [facility] Last Admin: 06/01/18 10:10 Dose: 17 gm echo 12/03: nl lv s/f, nl rv s/f, nl atria size, nl rvsp, no sig valve path cxr: no sig chf ecg: afib, rate ok, no ischemic changes a/p: 88 f hx htn, afib, here with abd pain. acute bailee, s/p cholecystostomy - cholecystectomy aborted due to hypertension during last admission - now s/p cholecystostomy tube - plan for cholecystectomy -no cardiac contraindications (intermediate risk) to planned cholecystectomy -can hold AC as doing and resume eliquis post op when possible -heart rate is controlled w/o meds but can use iv lopressor if has rvr while npo afib: -rate controlled off meds - holding eliquis for possible surgery - on heparin gtt htn: -occasional elevated BP, generally controlled - increase amlodipine to 10 mg daily -cont losartan
[2018-06-02 08:01] LABS: HEMATOCRIT 40.7 % (32.4-45.2); HEMOGLOBIN 12.8 GM/dL (10.7-15.3); MCH 22.3 pg (25.7-33.7); MCHC 31.4 g/dl (32.0-36.0); MEAN CELL VOLUME 71.1 fl (80-96); MEAN PLT VOLUME 8.8 fl (7.5-11.1); PLATELET COUNT 170 K/MM3 (134-434); RBC 5.73 M/mm3 (3.60-5.2); RDW 15.8 % (11.6-15.6); WHITE BLOOD COUNT 5.2 K/mm3 (4.0-10.0)
[2018-06-02 08:43] LABS: ALBUMIN 2.8 g/dl (3.4-5.0); ALK PHOS 87 U/L (45-117); ANION GAP 8 MMOL/L (8-16); BILIRUBIN,TOTAL 0.6 mg/dL (0.2-1); BLOOD UREA NITROGEN 7 mg/dL (7-18); CALCIUM 8.1 mg/dL (8.5-10.1); CHLORIDE 106 mmol/L (98-107); CO2 25 mmol/L (21-32); CREATININE 0.6 mg/dL (0.55-1.3); GLUCOSE,RANDOM 94 mg/dL (74-106); MAGNESIUM 1.4 mg/dL (1.8-2.4); PHOSPHOROUS 3.3 mg/dL (2.5-4.9); POTASSIUM 3.6 mmol/L (3.5-5.1); SGOT/AST 26 U/L (15-37); SGPT/ALT 27 U/L (13-61); SODIUM 140 mmol/L (136-145); TOT PROT 7.1 g/dl (6.4-8.2)
[2018-06-02] MEDS: HEPARIN - 25,000 UNIT in SODIUM CHLORIDE 495 ML IV SCH (09:12)
[2018-06-02] MEDS: DEXTROSE 5%-NORMAL SALINE 1,000 ML IV SCH (09:14)
[2018-06-02] MEDS ORDERED: PT OWN MED DRAWER 7, Y5N ONE ×2 (09:36→11:13)
[2018-06-02] MEDS: LOSARTAN POTASSIUM 50 MG TABLET (FP) PO SCH (09:41)
[2018-06-02] MEDS: POLYETHYLENE GLYCOL 3350 119 GM BTL PO SCH (09:42)
[2018-06-02] MEDS: amLODIPine BESYLATE 10 MG TABLET (FP) PO SCH (09:43)
[2018-06-02] MEDS ORDERED: MAGNESIUM SULF 50% (8.12 MEQ/2 ML-1 GM VIAL) IVPB ONE (10:47)
--- NOTE | 2018-06-02 10:55 | PN ---
Progress Note, Physician Chief Complaint: abdominal pain History of Present Illness: 88 year-old female with a PMH significant for HTN, afib on Eliquis, DVT, acute cholecystitis s/p pneumoperitoneum s/p cholecystostomy (05/11/18, [facility]) because she was unable to tolerate pneumoperitonium. Completed two week course of antibiotics. Presents today with RUQ pain x 2 days. She has been stable, reports persistent pain in the RUQ. - Current Medication List Current Medications: Active Medications Amlodipine Besylate (Norvasc -) 10 mg PO DAILY [facility] BEDS AT [facility] Last Admin: 06/02/18 09:43 Dose: 10 mg Heparin Sodium (Porcine) 25, (000 unit/ Sodium Chloride) 500 mls @ 20 mls/hr IV TITR [facility] 234 BEDS AT THE [facility] Stop: 06/04/18 04:00 Last Admin: 06/02/18 09:12 Dose: 750 unit/hr, 15 mls/hr Dextrose/Sodium Chloride (D5-Ns -) 1,000 mls @ 75 mls/hr IV ASDIR COUNTS INCLUDE 234 BEDS AT THE [facility] Last Admin: 06/02/18 09:14 Dose: 75 mls/hr Losartan Potassium (Cozaar -) 100 mg PO DAILY [facility] 234 BEDS AT [facility] Last Admin: 06/02/18 09:41 Dose: 100 mg Magnesium Sulfate (Magnesium Sulfate) 1 gm IVPB ONCE ONE Stop: 06/02/18 10:48 Polyethylene Glycol (Miralax (For Daily Use) -) 17 gm PO DAILY [facility] 234 BEDS AT [facility] Last Admin: 06/02/18 09:42 Dose: 17 gm - Objective Vital Signs: Vital Signs Temperature 98 F 06/02/18 07:01 Pulse Rate 62 06/02/18 07:01 Respiratory Rate 20 06/02/18 07:01 Blood Pressure 145/82 06/02/18 07:01 O2 Sat by Pulse Oximetry (%) 98 06/01/18 21:00 Vital Signs Period Temp Pulse Resp BP Sys/Butterfield Pulse Ox Last 24 Hr 97.4 F-98.0 F 62-73 17-20 139-161/69-89 98 Constitutional: Yes: Well Nourished, No Distress, Calm Eyes: Yes: Conjunctiva Clear, EOM Intact HENT: Yes: Atraumatic, Normocephalic Neck: Yes: Supple, Trachea Midline Cardiovascular: Yes: Regular Rate and Rhythm, S1, S2 Respiratory: Yes: Regular, CTA Bilaterally Gastrointestinal: Yes: Normal Bowel Sounds, Soft, Tenderness (adjacent to RUQ cholecystostomy). No: Abdomen, Obese, Distention ...Rectal Exam: Yes: Deferred Genitourinary: No: CVA Tenderness - Left, CVA Tenderness - Right Musculoskeletal: No: Muscle Pain, Muscle Weakness Extremities: No: Cool, Cyanosis Edema: No Peripheral Pulses WNL: Yes Wound/Incision: Yes: Clean/Dry, Well Approximated, Other (RUQ cholecystostomy) Neurological: Yes: Alert, Oriented Psychiatric: Yes: Alert, Oriented Labs: CBC, BMP 06/02/18 06:30 06/02/18 06:30 INR, PTT INR 1.54 (0.82-1.09) H 05/30/18 12:45 Problem List - Problems (1) Cholecystostomy tube dysfunction Assessment/Plan: 88 yo female with Afib on eloquis with increased abdominal pain following a cholecystogram 3 days ago, Plan for return to OR for cholecystectomy Medical and cardiology optimization IVF hydration NPO after midnight 06/03 correct electrolytes Hold Heparin Drip at 5am on 06/04 Discussed with patient risks, benefits and alternatives of laparoscopic possible open cholecystectomy, including but not limited to bleeding, infection , injury to adjacent structures, leak or injury, intraabdominal abscess, incisional hernia, need for further procedures, ; alternatives include antibiotics, delayed or no surgery - risks of this include failure of nonoperative therapy, perforation, sepsis, recurrence, . Patient desires to proceed with operation - will take to OR for above. Informed consent signed for same. adequate analgesia will follow Code(s): T85.518A - BREAKDOWN (MECHANICAL) OF GI PROSTH DEV/GRFT, INIT Qualifiers: Encounter type: initial encounter Qualified Code(s): T85.518A - Breakdown ( mechanical) of other gastrointestinal prosthetic devices, implants and grafts, initial encounter (2) Hypokalemia Code(s): E87.6 - HYPOKALEMIA (3) Hyponatremia Code(s): E87.1 - HYPO-OSMOLALITY AND HYPONATREMIA (4) Afib Code(s): I48.91 - UNSPECIFIED ATRIAL FIBRILLATION Qualifiers: Atrial fibrillation type: chronic Qualified Code(s): I48.2 - Chronic atrial fibrillation (5) Cholecystitis Code(s): K81.9 - CHOLECYSTITIS, UNSPECIFIED (6) HTN (hypertension) Code(s): I10 - ESSENTIAL (PRIMARY) HYPERTENSION Qualifiers: Hypertension type: essential hypertension Qualified Code(s): I10 - Essential (primary) hypertension
--- NOTE | 2018-06-02 11:39 | PN ---
Progress Note, Physician History of Present Illness: NAD Seen by cardiology-cleared for OR Seen by Surgery- to be taken to OR on 06/03 for replacement of cholecystostomy tube - Current Medication List Current Medications: Active Medications Amlodipine Besylate (Norvasc -) 10 mg PO DAILY [facility] Last Admin: 06/02/18 09:43 Dose: 10 mg Heparin Sodium (Porcine) 25, (000 unit/ Sodium Chloride) 500 mls @ 20 mls/hr IV TITR [facility] Stop: 06/04/18 04:00 Last Admin: 06/02/18 09:12 Dose: 750 unit/hr, 15 mls/hr Dextrose/Sodium Chloride (D5-Ns -) 1,000 mls @ 75 mls/hr IV ASDIR [facility] Last Admin: 06/02/18 09:14 Dose: 75 mls/hr Losartan Potassium (Cozaar -) 100 mg PO DAILY [facility] Last Admin: 06/02/18 09:41 Dose: 100 mg Magnesium Sulfate (Magnesium Sulfate) 1 gm IVPB ONCE ONE Stop: 06/02/18 10:48 Polyethylene Glycol (Miralax (For Daily Use) -) 17 gm PO DAILY [facility] Last Admin: 06/02/18 09:42 Dose: 17 gm - Objective Vital Signs: Vital Signs Temperature 98 F 06/02/18 08:15 Pulse Rate 76 06/02/18 11:20 Respiratory Rate 20 06/02/18 08:15 Blood Pressure 148/89 06/02/18 11:20 O2 Sat by Pulse Oximetry (%) 98 06/01/18 21:00 Constitutional: Yes: Well Nourished, No Distress, Calm, Obese Cardiovascular: Yes: Regular Rate and Rhythm Respiratory: Yes: WNL Gastrointestinal: Yes: Normal Bowel Sounds, Soft, Abdomen, Obese Genitourinary: Yes: WNL Musculoskeletal: Yes: WNL Extremities: Yes: WNL Edema: No Peripheral Pulses WNL: Yes Neurological: Yes: Alert, Oriented Psychiatric: Yes: Alert, Oriented Labs: CBC, BMP 06/02/18 06:30 06/02/18 06:30 INR, PTT INR 1.54 (0.82-1.09) H 05/30/18 12:45 Assessment/Plan (1) Cholecystostomy tube dysfunction Assessment/Plan: surgery on board Cleared by cardiology for OR full liquid diet IVF and heparin drip eliquis on hold electrolyte abnormalities corrected Code(s): T85.518A - BREAKDOWN (MECHANICAL) OF GI PROSTH DEV/GRFT, INIT Qualifiers: Encounter type: initial encounter Qualified Code(s): T85.518A - Breakdown ( mechanical) of other gastrointestinal prosthetic devices, implants and grafts, initial encounter (2) Afib Assessment/Plan: iv heparin , eliquis on hold iv lopressoer prn if needed for rate control- currently rate control Code(s): I48.91 - UNSPECIFIED ATRIAL FIBRILLATION Qualifiers: Atrial fibrillation type: chronic Qualified Code(s): I48.2 - Chronic atrial fibrillation (3) HTN (hypertension) Assessment/Plan: perla and alec Code(s): I10 - ESSENTIAL (PRIMARY) HYPERTENSION Qualifiers: Hypertension type: essential hypertension Qualified Code(s): I10 - Essential (primary) hypertension
[2018-06-03 08:31] LABS: HEMOGLOBIN 13.2 GM/dL (10.7-15.3); MCH 22.6 pg (25.7-33.7); MCHC 32.2 g/dl (32.0-36.0); MEAN CELL VOLUME 70.1 fl (80-96); PLATELET COUNT 184 K/MM3 (134-434); RBC 5.84 M/mm3 (3.60-5.2); RDW 15.6 % (11.6-15.6); WHITE BLOOD COUNT 4.9 K/mm3 (4.0-10.0)
[2018-06-03] MEDS ORDERED: PT OWN MED DRAWER 7, Y5N ONE (09:15)
[2018-06-03] MEDS: LOSARTAN POTASSIUM 50 MG TABLET (FP) PO SCH (09:31)
[2018-06-03] MEDS: POLYETHYLENE GLYCOL 3350 119 GM BTL PO SCH (09:31)
[2018-06-03] MEDS: amLODIPine BESYLATE 10 MG TABLET (FP) PO SCH (09:33)
--- NOTE | 2018-06-03 10:35 | PN ---
Progress Note, Physician History of Present Illness: NAD Seen by cardiology-cleared for OR Seen by Surgery- to be taken to OR on 06/03 for replacement of cholecystostomy tube - Current Medication List Current Medications: Active Medications Amlodipine Besylate (Norvasc -) 10 mg PO DAILY [facility] Last Admin: 06/03/18 09:33 Dose: 10 mg Heparin Sodium (Porcine) 25, (000 unit/ Sodium Chloride) 500 mls @ 20 mls/hr IV TITR [facility] Stop: 06/04/18 04:00 Last Admin: 06/02/18 09:12 Dose: 750 unit/hr, 15 mls/hr Losartan Potassium (Cozaar -) 100 mg PO DAILY [facility] Last Admin: 06/03/18 09:31 Dose: 100 mg Polyethylene Glycol (Miralax (For Daily Use) -) 17 gm PO DAILY [facility] Last Admin: 06/03/18 09:31 Dose: 17 gm - Objective Vital Signs: Vital Signs Temperature 97.5 F L 06/03/18 07:27 Pulse Rate 66 06/03/18 07:27 Respiratory Rate 20 06/03/18 07:27 Blood Pressure 156/89 06/03/18 07:27 O2 Sat by Pulse Oximetry (%) 98 06/02/18 21:00 Constitutional: Yes: Well Nourished, No Distress, Calm Cardiovascular: Yes: Regular Rate and Rhythm Respiratory: Yes: Regular Gastrointestinal: Yes: WNL Genitourinary: Yes: WNL Musculoskeletal: Yes: Muscle Weakness Extremities: Yes: WNL Edema: Yes Peripheral Pulses WNL: No Neurological: Yes: Alert, Oriented Psychiatric: Yes: Alert, Oriented Labs: CBC, BMP 06/03/18 07:00 06/02/18 06:30 INR, PTT INR 1.54 (0.82-1.09) H 05/30/18 12:45 Assessment/Plan (1) Cholecystostomy tube dysfunction Assessment/Plan: surgery on board Cleared by cardiology for OR full liquid diet IVF and heparin drip eliquis on hold electrolyte abnormalities corrected Code(s): T85.518A - BREAKDOWN (MECHANICAL) OF GI PROSTH DEV/GRFT, INIT Qualifiers: Encounter type: initial encounter Qualified Code(s): T85.518A - Breakdown ( mechanical) of other gastrointestinal prosthetic devices, implants and grafts, initial encounter (2) Afib Assessment/Plan: iv heparin , eliquis on hold iv lopressoer prn if needed for rate control- currently rate control Code(s): I48.91 - UNSPECIFIED ATRIAL FIBRILLATION Qualifiers: Atrial fibrillation type: chronic Qualified Code(s): I48.2 - Chronic atrial fibrillation (3) HTN (hypertension) Assessment/Plan: amy Code(s): I10 - ESSENTIAL (PRIMARY) HYPERTENSION Qualifiers: Hypertension type: essential hypertension Qualified Code(s): I10 - Essential (primary) hypertension
[2018-06-03 11:50] VITALS: BMI 25.2
--- NOTE | 2018-06-03 12:10 | PN ---
Progress Note, Physician Chief Complaint: abdominal pain History of Present Illness: 88 year-old female with a PMH significant for HTN, afib on Eliquis, DVT, acute cholecystitis s/p pneumoperitoneum s/p cholecystostomy (05/11/18, [facility]) because she was unable to tolerate pneumoperitonium. Completed two week course of antibiotics. Presents today with RUQ pain x 2 days. She has been stable, reports persistent pain in the RUQ. - Current Medication List Current Medications: Active Medications Amlodipine Besylate (Norvasc -) 10 mg PO DAILY [facility] Last Admin: 06/03/18 09:33 Dose: 10 mg Heparin Sodium (Porcine) 25, (000 unit/ Sodium Chloride) 500 mls @ 20 mls/hr IV TITR [facility] Stop: 06/04/18 04:00 Last Admin: 06/02/18 09:12 Dose: 750 unit/hr, 15 mls/hr Losartan Potassium (Cozaar -) 100 mg PO DAILY [facility] Last Admin: 06/03/18 09:31 Dose: 100 mg Polyethylene Glycol (Miralax (For Daily Use) -) 17 gm PO DAILY [facility] Last Admin: 06/03/18 09:31 Dose: 17 gm - Objective Vital Signs: Vital Signs Temperature 97.9 F 06/03/18 08:15 Pulse Rate 69 06/03/18 08:15 Respiratory Rate 18 06/03/18 08:15 Blood Pressure 149/94 06/03/18 08:15 O2 Sat by Pulse Oximetry (%) 98 06/02/18 21:00 Constitutional: Yes: Well Nourished, No Distress, Calm Eyes: Yes: Conjunctiva Clear, EOM Intact HENT: Yes: Atraumatic, Normocephalic Neck: Yes: Supple, Trachea Midline Cardiovascular: Yes: Regular Rate and Rhythm, S1, S2 Respiratory: Yes: Regular, CTA Bilaterally Gastrointestinal: Yes: Normal Bowel Sounds, Soft. No: Tenderness ...Rectal Exam: Yes: Deferred Genitourinary: No: CVA Tenderness - Left, CVA Tenderness - Right Breast(s): No: Dimpling, Nipple Inversion Musculoskeletal: No: Muscle Pain, Muscle Weakness Extremities: No: Cool, Cyanosis, Deformity Edema: No Peripheral Pulses WNL: Yes Peripheral Pulses: Left Radial: 2+, Right Radial: 2+, Left Doralis Pedis: 2+, Right Dorsalis Pedis: 2+, Left Femoral: 2+, Right Femoral: 2+ Integumentary: No: Incision, Jaundice Neurological: Yes: Alert, Oriented Psychiatric: Yes: Alert, Oriented Labs: CBC, BMP 06/03/18 07:00 06/02/18 06:30 INR, PTT INR 1.54 (0.82-1.09) H 05/30/18 12:45 Problem List - Problems (1) Cholecystostomy tube dysfunction Assessment/Plan: 88 yo female with Afib on eloquis with increased abdominal pain following a cholecystogram 3 days ago, Plan for return to OR for cholecystectomy Medical and cardiology optimization IVF hydration NPO after midnight 06/03 correct electrolytes Hold Heparin Drip at 5am on 06/04 Discussed with patient risks, benefits and alternatives of laparoscopic possible open cholecystectomy, including but not limited to bleeding, infection , injury to adjacent structures, leak or injury, intraabdominal abscess, incisional hernia, need for further procedures, ; alternatives include antibiotics, delayed or no surgery - risks of this include failure of nonoperative therapy, perforation, sepsis, recurrence, . Patient desires to proceed with operation - will take to OR for above. Informed consent signed for same. adequate analgesia will follow Code(s): T85.518A - BREAKDOWN (MECHANICAL) OF GI PROSTH DEV/GRFT, INIT Qualifiers: Encounter type: initial encounter Qualified Code(s): T85.518A - Breakdown ( mechanical) of other gastrointestinal prosthetic devices, implants and grafts, initial encounter (2) Hypokalemia Code(s): E87.6 - HYPOKALEMIA (3) Hyponatremia Code(s): E87.1 - HYPO-OSMOLALITY AND HYPONATREMIA (4) Afib Code(s): I48.91 - UNSPECIFIED ATRIAL FIBRILLATION Qualifiers: Atrial fibrillation type: chronic Qualified Code(s): I48.2 - Chronic atrial fibrillation (5) Cholecystitis Code(s): K81.9 - CHOLECYSTITIS, UNSPECIFIED (6) HTN (hypertension) Code(s): I10 - ESSENTIAL (PRIMARY) HYPERTENSION Qualifiers: Hypertension type: essential hypertension Qualified Code(s): I10 - Essential (primary) hypertension
[2018-06-03] MEDS: HEPARIN - 25,000 UNIT in SODIUM CHLORIDE 495 ML IV SCH (22:46)
[2018-06-04 07:02] LABS: HEMATOCRIT 38.8 % (32.4-45.2); HEMOGLOBIN 12.5 GM/dL (10.7-15.3); MCH 22.4 pg (25.7-33.7); MCHC 32.2 g/dl (32.0-36.0); MEAN CELL VOLUME 69.7 fl (80-96); MEAN PLT VOLUME 9.1 fl (7.5-11.1); PLATELET COUNT 163 K/MM3 (134-434); RBC 5.57 M/mm3 (3.60-5.2); RDW 15.1 % (11.6-15.6); WHITE BLOOD COUNT 4.6 K/mm3 (4.0-10.0)
[2018-06-04] MEDS ORDERED: BUPIVACAINE HCL/PF 0.5% (5MG/ML) 10 ML VIAL ONE (07:48)
[2018-06-04] MEDS ORDERED: ONDANSETRON 4 MG/2 ML VIAL IVPUSH PRN (07:57)
[2018-06-04] MEDS ORDERED: ACETAMINOPHEN 1000 MG/100 ML VIAL (NON FORMULARY) IVPB PRN (07:57)
[2018-06-04] MEDS ORDERED: LACTATED RINGERS SOLUTION 1,000 ML IV SCH (08:00)
[2018-06-04] MEDS ORDERED: DESFLURANE GAS 240 ML BOTTLE IH ONE (08:02)
[2018-06-04] MEDS ORDERED: LIDOCAINE HCL/PF 2% SDV 5ML VIAL ONE (08:08)
[2018-06-04] MEDS ORDERED: PROPOFOL 20 ML ONE ×4 (08:08→08:10)
[2018-06-04] MEDS ORDERED: ROCURONIUM BROMIDE 50 MG/5 ML VIAL ONE ×4 (08:08→08:11)
[2018-06-04] MEDS ORDERED: CEFOXITIN SODIUM 1 GM IVPB ONE (08:13)
[2018-06-04] MEDS ORDERED: cefOXitin SODIUM 1 GM VIAL (RESTRICTED TO ID) IVPB ONE (08:18)
[2018-06-04] MEDS ORDERED: hydrALAZINE HCL 20 MG/ML VIAL ONE (08:37)
[2018-06-04] MEDS ORDERED: ESMOLOL HCL 100,000 MCG/10 ML VIAL ONE (08:40)
[2018-06-04] MEDS ORDERED: LABETALOL HCL 5 MG/1 ML (100MG/20 ML VIAL) ONE (08:40)
[2018-06-04] MEDS ORDERED: BUPIVACAINE HCL/PF (5 MG/ML) 30 ML VIAL IJ ONE ×2 (08:49→09:42)
[2018-06-04] MEDS ORDERED: GLYCOPYRROLATE 0.2 MG/1 ML VIAL ONE (09:03)
[2018-06-04] MEDS ORDERED: NEOSTIGMINE METHYLSULFATE 0.5 MG/ML - 10 ML MDV ONE (09:03)
[2018-06-04] MEDS ORDERED: DEXAMETHASONE SOD PHOSPHATE 4 MG/1 ML VIAL ONE (09:03)
[2018-06-04] MEDS ORDERED: BENZOIN TINCTURE SWABSTICK TP ONE (09:38)
--- NOTE | 2018-06-04 09:55 | OP ---
Operative Note - Note: Operative Date: 06/04/18 Pre-Operative Diagnosis: chronic cholecystitis, cholecystostmy dysfunction Operation: laparoscopic Cholecystectomy Findings: massively distended gallbladder, small cystic ducts, critical view of safety visualized Post-Operative Diagnosis: Same as Pre-op Surgeon: Jason Jose Sidewalk Repairer: Bart Patel Anesthesiologist/GLOBAL MARKETING MANAGER: Tasia Balderas Anesthesia: General, Local (0.5% marcaine 20ml) Specimens Removed: cholecystostomy tube, gallbladder Estimated Blood Loss (mls): 100 Fluid Volume Replaced (mls): 700 Operative Report Dictated: Yes
[2018-06-04] MEDS: LACTATED RINGERS SOLUTION 1,000 ML IV SCH (11:55)
--- NOTE | 2018-06-04 12:46 | PN ---
Progress Note, Physician Chief Complaint: Cholecystectomy Tube Dysfunction Acute Cholecystitis s/p pneumoperitoneum s/p cholecystectomy History of Present Illness: Previous notes and events reviewed awake and alert NAD POD #0 laparascopic cholecystectomy c/o R shoulder pain - Current Medication List Current Medications: Active Medications Amlodipine Besylate (Norvasc -) 10 mg PO DAILY [facility] Lactated Ringer's (Lactated Ringers Solution) 1,000 mls @ 125 mls/hr IV ASDIR [facility] Last Admin: 06/04/18 11:55 Dose: 125 mls/hr Losartan Potassium (Cozaar -) 100 mg PO DAILY [facility] Polyethylene Glycol (Miralax (For Daily Use) -) 17 gm PO DAILY [facility] - Objective Vital Signs: Vital Signs Temperature 98 F 06/04/18 11:45 Pulse Rate 83 06/04/18 11:45 Respiratory Rate 18 06/04/18 11:45 Blood Pressure 124/64 06/04/18 11:45 O2 Sat by Pulse Oximetry (%) 100 06/04/18 11:10 Constitutional: Yes: No Distress, Calm Eyes: Yes: Conjunctiva Clear HENT: Yes: Atraumatic Cardiovascular: Yes: Regular Rate and Rhythm Respiratory: Yes: CTA Bilaterally, On Nasal O2 Gastrointestinal: Yes: Soft, Hypoactive Bowel Sounds, Tenderness Genitourinary: Yes: Incontinence Musculoskeletal: Yes: Muscle Weakness Extremities: Yes: WNL Edema: No Wound/Incision: Yes: Dressing Dry and Intact Neurological: Yes: Alert, Oriented Psychiatric: Yes: Alert, Oriented Labs: CBC, BMP 06/04/18 06:00 06/02/18 06:30 INR, PTT INR 1.54 (0.82-1.09) H 05/30/18 12:45 Problem List - Problems (1) Cholecystostomy tube dysfunction Assessment/Plan: -Surgery on Board -POD #0 laparascopic cholecystectomy -incentive spirometer -pain management - Code(s): T85.518A - BREAKDOWN (MECHANICAL) OF GI PROSTH DEV/GRFT, INIT Qualifiers: Encounter type: initial encounter Qualified Code(s): T85.518A - Breakdown ( mechanical) of other gastrointestinal prosthetic devices, implants and grafts, initial encounter (2) Afib Assessment/Plan: -Eliquis on hold -Heparin drip -Lopressor IVPB PRN for tachycardia -will resume Heparin drip when cleared by surgery Code(s): I48.91 - UNSPECIFIED ATRIAL FIBRILLATION Qualifiers: Atrial fibrillation type: chronic Qualified Code(s): I48.2 - Chronic atrial fibrillation (3) Cholecystitis Assessment/Plan: -surgery on board -IV hydration Code(s): K81.9 - CHOLECYSTITIS, UNSPECIFIED (4) HTN (hypertension) Code(s): I10 - ESSENTIAL (PRIMARY) HYPERTENSION Qualifiers: Hypertension type: essential hypertension Qualified Code(s): I10 - Essential (primary) hypertension (5) Hypokalemia Code(s): E87.6 - HYPOKALEMIA (6) Constipation Code(s): K59.00 - CONSTIPATION, UNSPECIFIED
[2018-06-04] MEDS: LIDOCAINE 5% TOPICAL PATCH TP SCH (14:07)
[2018-06-04] MEDS ORDERED: KETOROLAC TROMETHAMINE 30 MG/1 ML VIAL IVPUSH ONE (15:10)
--- NOTE | 2018-06-04 16:06 | PN ---
Progress Note (short form) - Note Progress Note: s: s/p lap bailee. feels tired. no chest pain, palps, dizziness, dyspnea Vital Signs Period Temp Pulse Resp BP Sys/Butterfield Pulse Ox Last 24 Hr 98 F-98.9 F 63-92 12-20 104-142/51-77 98-100 nad, no jvd irreg s1s2 no mrg cta b/l, nl eff aaox3 no le e/c/c abd nd pos bs, ruq abd tender pos dp/pt no diaphoresis/jaundice Current Medications Amlodipine Besylate (Norvasc -) 10 mg PO DAILY [facility] Heparin Sodium (Porcine) (Heparin -) 5,000 unit SQ BID [facility] Lactated Ringer's (Lactated Ringers Solution) 1,000 mls @ 125 mls/hr IV ASDIR [facility] Last Admin: 06/04/18 11:55 Dose: 125 mls/hr Lidocaine (Lidoderm Patch -) 1 patch TP DAILY [facility] Last Admin: 06/04/18 14:07 Dose: 1 patch Losartan Potassium (Cozaar -) 100 mg PO DAILY [facility] Miscellaneous (Lidoderm Patch Removal) 1 each MC DAILY@2200 [facility] Polyethylene Glycol (Miralax (For Daily Use) -) 17 gm PO DAILY [facility] echo 12/03: nl lv s/f, nl rv s/f, nl atria size, nl rvsp, no sig valve path cxr: no sig chf ecg: afib, rate ok, no ischemic changes a/p: 88 f hx htn, afib, here with abd pain. acute bailee, s/p cholecystostomy, s/p lap bailee - s/p lap cholecystectomy - resume eliquis post op when clear per surgery afib: -rate controlled off meds - resume eliquis when clear per surgery htn: -stable, continue losartan, amlodipine
[2018-06-04] MEDS: HEPARIN NA (PORCINE) 5,000 UNITS/ML 1ML VIAL SQ SCH (21:12)
[2018-06-05 07:39] LABS: HEMATOCRIT 32.8 % (32.4-45.2); HEMOGLOBIN 10.7 GM/dL (10.7-15.3); MCH 22.8 pg (25.7-33.7); MCHC 32.5 g/dl (32.0-36.0); MEAN CELL VOLUME 70.1 fl (80-96); PLATELET COUNT 145 K/MM3 (134-434); RBC 4.68 M/mm3 (3.60-5.2); RDW 14.9 % (11.6-15.6); WHITE BLOOD COUNT 6.8 K/mm3 (4.0-10.0)
--- NOTE | 2018-06-05 07:45 | PN ---
Progress Note, Physician Chief Complaint: abdominal pain History of Present Illness: 88 year-old female with a PMH significant for HTN, afib on Eliquis, DVT, acute cholecystitis s/p pneumoperitoneum s/p cholecystostomy (05/11/18, Rebeca) because she was unable to tolerate pneumoperitonium. stable since surgery - Current Medication List Current Medications: Active Medications Amlodipine Besylate (Norvasc -) 10 mg PO DAILY [facility] Heparin Sodium (Porcine) (Heparin -) 5,000 unit SQ BID [facility] Last Admin: 06/04/18 21:12 Dose: 5,000 unit Lactated Ringer's (Lactated Ringers Solution) 1,000 mls @ 125 mls/hr IV ASDIR [facility] Last Admin: 06/04/18 11:55 Dose: 125 mls/hr Lidocaine (Lidoderm Patch -) 1 patch TP DAILY [facility] Last Admin: 06/04/18 14:07 Dose: 1 patch Losartan Potassium (Cozaar -) 100 mg PO DAILY [facility] Miscellaneous (Lidoderm Patch Removal) 1 each MC DAILY@2200 [facility] Polyethylene Glycol (Miralax (For Daily Use) -) 17 gm PO DAILY [facility] - Objective Vital Signs: Vital Signs Temperature 98.1 F 06/05/18 06:08 Pulse Rate 73 06/05/18 06:08 Respiratory Rate 20 06/05/18 06:08 Blood Pressure 151/100 06/05/18 06:08 O2 Sat by Pulse Oximetry (%) 97 06/04/18 21:00 Constitutional: Yes: Well Nourished, No Distress, Calm Eyes: Yes: Conjunctiva Clear, EOM Intact HENT: Yes: Atraumatic, Normocephalic Neck: Yes: Supple, Trachea Midline Cardiovascular: Yes: Regular Rate and Rhythm, S1, S2 Respiratory: Yes: Regular, CTA Bilaterally Gastrointestinal: Yes: Normal Bowel Sounds, Soft. No: Tenderness, Tenderness, Epigastrium ...Rectal Exam: Yes: Deferred Genitourinary: No: CVA Tenderness - Left, CVA Tenderness - Right Musculoskeletal: No: Muscle Pain, Muscle Weakness Extremities: No: Cool, Cyanosis Edema: No Peripheral Pulses WNL: Yes Peripheral Pulses: Left Radial: 2+, Right Radial: 2+, Left Doralis Pedis: 2+, Right Dorsalis Pedis: 2+, Left Femoral: 2+, Right Femoral: 2+ Wound/Incision: Yes: Clean/Dry, Well Approximated, Dressing Dry and Intact Neurological: Yes: Alert, Oriented Psychiatric: Yes: Alert, Oriented Labs: INR, PTT INR 1.54 (0.82-1.09) H 05/30/18 12:45 Problem List - Problems (1) Cholecystostomy tube dysfunction Assessment/Plan: 88 yo female with Afib on eloquis with increased abdominal pain following a cholecystogram 3 days ago, Plan for return to OR for cholecystectomy POD#1 s/p laparoscopic Cholecystectomy Advance diet as tolerated IVF hydration adequate analgesia OOB and ambulate PT evaluation encourge IS Resume anticoagulation 48hours after surgery will follow Code(s): T85.518A - BREAKDOWN (MECHANICAL) OF GI PROSTH DEV/GRFT, INIT Qualifiers: Encounter type: initial encounter Qualified Code(s): T85.518A - Breakdown ( mechanical) of other gastrointestinal prosthetic devices, implants and grafts, initial encounter (2) Hypokalemia Code(s): E87.6 - HYPOKALEMIA (3) Hyponatremia Code(s): E87.1 - HYPO-OSMOLALITY AND HYPONATREMIA (4) Afib Code(s): I48.91 - UNSPECIFIED ATRIAL FIBRILLATION Qualifiers: Atrial fibrillation type: chronic Qualified Code(s): I48.2 - Chronic atrial fibrillation (5) Cholecystitis Code(s): K81.9 - CHOLECYSTITIS, UNSPECIFIED (6) HTN (hypertension) Code(s): I10 - ESSENTIAL (PRIMARY) HYPERTENSION Qualifiers: Hypertension type: essential hypertension Qualified Code(s): I10 - Essential (primary) hypertension
--- NOTE | 2018-06-05 09:00 | PN ---
Progress Note, Physician Chief Complaint: POSTOP LAPCHOL DAY #1 AWAKE ALERT EATING BREAKFAST DENIES CHEST PAIN - Current Medication List Current Medications: Active Medications Amlodipine Besylate (Norvasc -) 10 mg PO DAILY [facility] Heparin Sodium (Porcine) (Heparin -) 5,000 unit SQ BID [facility] Last Admin: 06/04/18 21:12 Dose: 5,000 unit Lactated Ringer's (Lactated Ringers Solution) 1,000 mls @ 125 mls/hr IV ASDIR [facility] Last Admin: 06/04/18 11:55 Dose: 125 mls/hr Lidocaine (Lidoderm Patch -) 1 patch TP DAILY [facility] Last Admin: 06/04/18 14:07 Dose: 1 patch Losartan Potassium (Cozaar -) 100 mg PO DAILY [facility] Miscellaneous (Lidoderm Patch Removal) 1 each MC DAILY@2200 [facility] Polyethylene Glycol (Miralax (For Daily Use) -) 17 gm PO DAILY [facility] - Objective Vital Signs: Vital Signs Temperature 98.1 F 06/05/18 06:08 Pulse Rate 73 06/05/18 06:08 Respiratory Rate 20 06/05/18 06:08 Blood Pressure 151/100 06/05/18 06:08 O2 Sat by Pulse Oximetry (%) 97 06/04/18 21:00 Constitutional: Yes: Mild Distress Eyes: Yes: WNL HENT: Yes: WNL Neck: Yes: WNL Cardiovascular: Yes: Regular Rate and Rhythm Respiratory: Yes: WNL Gastrointestinal: Yes: Soft, Tenderness Genitourinary: Yes: WNL Musculoskeletal: Yes: Muscle Weakness Extremities: Yes: WNL Edema: No Integumentary: Yes: WNL Wound/Incision: Yes: Dressing Dry and Intact Neurological: Yes: WNL ...Motor Strength: WNL Psychiatric: Yes: WNL Labs: CBC, BMP 06/05/18 06:30 INR, PTT INR 1.54 (0.82-1.09) H 05/30/18 12:45 Problem List - Problems (1) Cholecystostomy tube dysfunction Code(s): T85.518A - BREAKDOWN (MECHANICAL) OF GI PROSTH DEV/GRFT, INIT Qualifiers: Encounter type: initial encounter Qualified Code(s): T85.518A - Breakdown ( mechanical) of other gastrointestinal prosthetic devices, implants and grafts, initial encounter (2) Hypokalemia Code(s): E87.6 - HYPOKALEMIA (3) Hyponatremia Code(s): E87.1 - HYPO-OSMOLALITY AND HYPONATREMIA (4) Afib Code(s): I48.91 - UNSPECIFIED ATRIAL FIBRILLATION Qualifiers: Atrial fibrillation type: chronic Qualified Code(s): I48.2 - Chronic atrial fibrillation (5) Cholecystitis Code(s): K81.9 - CHOLECYSTITIS, UNSPECIFIED (6) DVT prophylaxis Code(s): [id number] - Assessment/Plan LAPCHOL POD #1 CONTINUE INCENTIVE SPIROMETRY OOB TO CHAIR / PT EVAL CHECK LABS IN AM SURGERY EVAL APPRECIATED DVT PROPHYLAXIS HOME WITH HEALTH AID
[2018-06-05] MEDS ORDERED: SIMETHICONE 80 MG TAB.CHEW (FP) PO PRN (09:10)
[2018-06-05 10:27] LABS: BLOOD UREA NITROGEN 16 mg/dL (7-18); CREATININE 0.7 mg/dL (0.55-1.3); GLUCOSE,RANDOM 82 mg/dL (74-106); SODIUM 137 mmol/L (136-145)
[2018-06-05 10:28] LABS: ALBUMIN 2.6 g/dl (3.4-5.0); ANION GAP 6 MMOL/L (8-16); BILIRUBIN,TOTAL 0.7 mg/dL (0.2-1); CALCIUM 8.5 mg/dL (8.5-10.1); CHLORIDE 106 mmol/L (98-107); CO2 25 mmol/L (21-32); POTASSIUM 4.5 mmol/L (3.5-5.1); SGOT/AST 31 U/L (15-37); SGPT/ALT 28 U/L (13-61); TOT PROT 6.5 g/dl (6.4-8.2)
[2018-06-05 10:29] LABS: ALK PHOS 78 U/L (45-117)
[2018-06-05] MEDS: amLODIPine BESYLATE 10 MG TABLET (FP) PO SCH (10:31)
[2018-06-05] MEDS: HEPARIN NA (PORCINE) 5,000 UNITS/ML 1ML VIAL SQ SCH ×2 (10:31→21:16)
[2018-06-05] MEDS: LIDOCAINE 5% TOPICAL PATCH TP SCH (10:31)
[2018-06-05] MEDS: LOSARTAN POTASSIUM 50 MG TABLET (FP) PO SCH (10:31)
[2018-06-05] MEDS: POLYETHYLENE GLYCOL 3350 119 GM BTL PO SCH (10:41)
--- NOTE | 2018-06-05 12:02 | OP ---
DATE OF OPERATION: 06/04/2018 PREOPERATIVE DIAGNOSIS: Chronic cholecystitis, cholecystostomy dysfunction. POSTOPERATIVE DIAGNOSIS: Chronic cholecystitis, cholecystostomy dysfunction. PROCEDURE: Laparoscopic cholecystectomy. ATTENDING SURGEON: Jason Jose MD PIPE THREADER: Bart Patel MD ANESTHESIA: Tasia Balderas MD ANESTHESIA TYPE: General with local. Local consisted of 0.5% Marcaine a total of 20 mL given to port sites. ESTIMATED BLOOD LOSS: 100 mL. IV FLUID ADMINISTERED: 700 ML. SPECIMEN: Cholecystostomy tube and gallbladder with cholecystostomy tube. INDICATIONS: The patient is an 88-year-old female. She is status post laparoscopic cholecystostomy tube placement for acute cholecystitis approximately 4 weeks earlier. She was counseled regarding risks, benefits, and alternatives regarding an attempt at cholecystectomy. She signed informed consent and was taken for the procedure. DESCRIPTION OF PROCEDURE: The patient was brought to the operating room. She was placed in supine position on the operating room table. Lower extremities had SCDs placed to compression. The patient was induced with general anesthesia and endotracheally intubated at which point the abdominal wall including the cholecystostomy tube was prepped and draped in the standard surgical field blocking the right upper quadrant incision. The previous scar at the supraumbilical port was incised with a 15-blade scalpel, deepened and widened through subcutaneous tissue. Care was taken to find the fascia and elevate it in the field and then open the stitch, which was ablating the port site. Once the abdomen was opened, we installed a 12-mm Marin trocar into the previous Marin entry point after assuring that no abdominal viscera was adherent when clearing with the digit. A pneumoperitoneum was then established to 15 mmHg at which point we began with additional port placement at subxiphoid position in the right abdomen in 2 places under direct visualization. These 5-mm ports were then used to identify the gallbladder, which appeared tethered to the anterior abdominal wall by the cholecystostomy and had formed a tract. The tract was taken down, and the cholecystostomy tube was retracted cranially into the left shoulder. The infundibulum was then retracted towards the right abdomen and we began developing planes between the cystic artery and cystic duct, which became apparent. Once cleared and developed into planes, we could easily place wet clips. Wet clips size 5 mm with a green handle were placed from the subxiphoid position to control the cystic duct and the cystic artery. They were transected with Endo Jackie. The gallbladder was then elevated from the hepatic bed in segments 4 and 5 of the liver. The liver's bed was cauterized to obtain hemostasis after dissection. The gallbladder was then retrieved from the umbilical port after reciting a camera to the subxiphoid position with an EndoCatch bag 10 mm. After retrieving the gallbladder, the remainder of the cholecystostomy tube was also sent for pathologic diagnosis along with the gallbladder intrinisic portion of the cholecystostomy tube. Once complete and retrieved from the field, it was passed off for final pathologic diagnosis. The umbilical port was then ablated with an additional 0 Vicryl in a figure of eight, and the skin was cleaned and closed in subcuticular fashion using 4-0 Vicryl. The patient was awoken from general anesthesia having tolerated the procedure well. She was given additional dosing of antibiotics. MD SHAJI Gilliam/[id number]
--- NOTE | 2018-06-05 14:13 | PN ---
Progress Note (short form) - Note Progress Note: Anesthesia POD#1 S/P Laparoscopic Cholecyctectomy under GA VSS,no N/V,mild pain. No complications to anesthesia seen. Tasia Balderas MD.
--- NOTE | 2018-06-05 15:16 | PN ---
Progress Note (short form) - Note Progress Note: s: s/p lap bailee. no chest pain, palps, dizziness, dyspnea Current Medications Generic Name Dose Route Start Last Admin Trade Name Nori PRN Reason Stop Dose Admin Amino Acids 30 ml 06/05/18 17:30 Prosource No Carb Liquid Pkt PO BID@0800,1730 [facility] Amlodipine Besylate 10 mg 06/05/18 10:00 06/05/18 10:31 Norvasc - PO 10 mg DAILY [facility] Administration Heparin Sodium (Porcine) 5,000 unit 06/04/18 22:00 06/05/18 10:31 Heparin - SQ 5,000 unit BID [facility] Administration Lactated Ringer's 1,000 mls @ 125 mls/hr 06/04/18 10:17 06/04/18 11:55 Lactated Ringers Solution IV 125 mls/hr ASDIR [facility] Administration Lidocaine 1 patch 06/04/18 13:30 06/05/18 10:31 Lidoderm Patch - TP 1 patch DAILY [facility] Administration Losartan Potassium 100 mg 06/05/18 10:00 06/05/18 10:31 Cozaar - PO 100 mg DAILY [facility] Administration Miscellaneous 1 each 06/04/18 22:00 Lidoderm Patch Removal MC DAILY@2200 [facility] Polyethylene Glycol 17 gm 06/05/18 10:00 06/05/18 10:41 Miralax (For Daily Use) - PO 17 gm DAILY [facility] Administration Simethicone 80 mg 06/05/18 09:10 06/05/18 10:41 Mylicon - PO 80 mg Q4H PRN Administration DYSPEPSIA Vital Signs Period Temp Pulse Resp BP Sys/[place]field Pulse Ox Last 24 Hr 97.7 F-98.1 F 62-73 17-20 112-151/69-100 97 nad, no jvd irreg s1s2 no mrg cta b/l, nl eff aaox3 no le e/c/c abd nd pos bs, ruq abd tender pos dp/pt no diaphoresis/jaundice CBC, BMP 06/05/18 06:30 06/05/18 06:30 echo 12/03: nl lv s/f, nl rv s/f, nl atria size, nl rvsp, no sig valve path cxr: no sig chf ecg: afib, rate ok, no ischemic changes a/p: 88 f hx htn, afib, here with abd pain. acute bailee, s/p cholecystostomy, s/p lap bailee - s/p lap cholecystectomy afib: -rate controlled off meds -resume eliquis when clear per surgery htn: -stable, continue losartan, amlodipine
[2018-06-05] MEDS: AMINO ACIDS/PROTEIN HYDROLYS 30 ML LIQUID.PKT PO SCH (17:44)
--- NOTE | 2018-06-05 19:01 | PATH ---
Surgical Pathology Report Patient Name: HALEY EL Med. Rec. #: [id number] /Age/Gender: 1930 (Age: 88) / F Account: [id number] Location: [facility] MED/SURG Taken: 06/04/2018 Received: 06/04/2018 Reported: 06/05/2018 Physicians: Davon Gilliam M.D. Specimen(s) Received A: GALLBLADDER B: CHOLECYSTOSTOMY TUBE Clinical History Chronic cholecystitis, cholecystostomy tube Final Diagnosis A. GALLBLADDER, LAPAROSCOPIC CHOLECYSTECTOMY: CHRONIC CHOLECYSTITIS WITH CHOLELITHIASIS. B. CHOLECYSTOSTOMY TUBE, REMOVAL: CONSISTENT WITH CHOLECYSTOSTOMY TUBE. MACROSCOPIC DIAGNOSIS. Electronically Signed Dejah Bill M.D. Gross Description A. Received in formalin, labeled "gallbladder," is a 9.0 x 4.5 x 3.4 cm. gallbladder with a dilated portion of cystic duct containing a 10 cm in length blue portion of tubing, consistent with a stent. The outer surface is hale and varies from smooth to shaggy. The lumen contains green-yellow, tenacious bile as well as multiple black, irregular choleliths ranging from 0.1-0.4 cm in greatest dimension. The mucosa is hale with focal erosions. The wall of the gallbladder is focally edematous and measures up to 1.0 cm. in thickness. Case Management Social Worker sections are submitted in one cassette. B. Received fresh labeled "cholecystostomy tube," is a 34 cm in length blue portion of tubing, consistent with a cholecystotomy tube. No soft tissue is present. No sections are submitted, gross only. /06/04/201806/04/2018
[2018-06-06 07:10] LABS: ALK PHOS 88 U/L (45-117); ANION GAP 6 MMOL/L (8-16); BILIRUBIN,TOTAL 0.5 mg/dL (0.2-1); BLOOD UREA NITROGEN 15 mg/dL (7-18); CALCIUM 8.5 mg/dL (8.5-10.1); CHLORIDE 107 mmol/L (98-107); CO2 28 mmol/L (21-32); CREATININE 0.8 mg/dL (0.55-1.3); GLUCOSE,RANDOM 72 mg/dL (74-106); POTASSIUM 4.2 mmol/L (3.5-5.1); SGOT/AST 30 U/L (15-37); SGPT/ALT 29 U/L (13-61); SODIUM 141 mmol/L (136-145); TOT PROT 6.9 g/dl (6.4-8.2)
[2018-06-06] MEDS: LIDOCAINE PATCH REMOVAL MC SCH ×2 (07:17→21:19)
[2018-06-06] MEDS: AMINO ACIDS/PROTEIN HYDROLYS 30 ML LIQUID.PKT PO SCH ×2 (08:07→17:20)
--- NOTE | 2018-06-06 09:13 | PN ---
Progress Note, Physician Chief Complaint: AWAKE ALERT FEELING BETTER - Current Medication List Current Medications: Active Medications Amino Acids (Prosource No Carb Liquid Pkt) 30 ml PO BID@0800,1730 [facility] Last Admin: 06/06/18 08:07 Dose: 30 ml Amlodipine Besylate (Norvasc -) 10 mg PO DAILY [facility] Last Admin: 06/05/18 10:31 Dose: 10 mg Apixaban (Eliquis -) 2.5 mg PO BID [facility] Lactated Ringer's (Lactated Ringers Solution) 1,000 mls @ 125 mls/hr IV ASDIR [facility] Last Admin: 06/04/18 11:55 Dose: 125 mls/hr Lidocaine (Lidoderm Patch -) 1 patch TP DAILY [facility] Last Admin: 06/05/18 10:31 Dose: 1 patch Losartan Potassium (Cozaar -) 100 mg PO DAILY [facility] Last Admin: 06/05/18 10:31 Dose: 100 mg Magnesium Hydroxide (Milk Of Magnesia -) 30 ml PO Q8H PRN PRN Reason: INDIGESTION Miscellaneous (Lidoderm Patch Removal) 1 each MC DAILY@2200 [facility] Last Admin: 06/06/18 07:17 Dose: Not Given Polyethylene Glycol (Miralax (For Daily Use) -) 17 gm PO DAILY [facility] Last Admin: 06/05/18 10:41 Dose: 17 gm Simethicone (Mylicon -) 80 mg PO Q4H PRN PRN Reason: DYSPEPSIA Last Admin: 06/05/18 10:41 Dose: 80 mg - Objective Vital Signs: Vital Signs Temperature 97.3 F L 06/06/18 06:00 Pulse Rate 75 06/06/18 06:00 Respiratory Rate 20 06/06/18 06:00 Blood Pressure 146/81 06/06/18 06:00 O2 Sat by Pulse Oximetry (%) 98 06/05/18 20:53 Constitutional: Yes: No Distress Eyes: Yes: WNL HENT: Yes: WNL Neck: Yes: WNL Cardiovascular: Yes: Pulse Irregular Respiratory: Yes: WNL Gastrointestinal: Yes: Tenderness Genitourinary: Yes: WNL Musculoskeletal: Yes: WNL Extremities: Yes: WNL Edema: No Peripheral Pulses WNL: Yes Integumentary: Yes: WNL Wound/Incision: Yes: Clean/Dry Neurological: Yes: WNL ...Motor Strength: WNL Psychiatric: Yes: WNL Labs: CBC, BMP 06/05/18 06:30 06/06/18 05:30 INR, PTT INR 1.54 (0.82-1.09) H 05/30/18 12:45 Problem List - Problems (1) Cholecystostomy tube dysfunction Code(s): T85.518A - BREAKDOWN (MECHANICAL) OF GI PROSTH DEV/GRFT, INIT Qualifiers: Encounter type: initial encounter Qualified Code(s): T85.518A - Breakdown ( mechanical) of other gastrointestinal prosthetic devices, implants and grafts, initial encounter (2) Hypokalemia Code(s): E87.6 - HYPOKALEMIA (3) Hyponatremia Code(s): E87.1 - HYPO-OSMOLALITY AND HYPONATREMIA (4) Afib Code(s): I48.91 - UNSPECIFIED ATRIAL FIBRILLATION Qualifiers: Atrial fibrillation type: chronic Qualified Code(s): I48.2 - Chronic atrial fibrillation (5) Cholecystitis Code(s): K81.9 - CHOLECYSTITIS, UNSPECIFIED (6) DVT prophylaxis Code(s): [id number] - Assessment/Plan LAPCHOL POD #2 CONTINUE INCENTIVE SPIROMETRY OOB TO CHAIR / PT EVAL CHECK LABS IN AM RESTART ELIQUIS 2.5MG BID SURGERY EVAL APPRECIATED DVT PROPHYLAXIS HOME WITH HEALTH AID
[2018-06-06] MEDS ORDERED: PT OWN MED DRAWER 7, Y5N ONE (09:29)
[2018-06-06] MEDS: LOSARTAN POTASSIUM 50 MG TABLET (FP) PO SCH (09:32)
[2018-06-06] MEDS: APIXABAN 2.5 MG TABLET PO SCH ×2 (09:33→21:19)
[2018-06-06] MEDS: POLYETHYLENE GLYCOL 3350 119 GM BTL PO SCH (09:34)
[2018-06-06] MEDS: amLODIPine BESYLATE 10 MG TABLET (FP) PO SCH (09:35)
[2018-06-06] MEDS: LIDOCAINE 5% TOPICAL PATCH TP SCH (09:35)
[2018-06-06] MEDS: MAGNESIUM HYDROX 2400MG/30ML ORAL SUSPENSION 30 ML CUP PO PRN (09:37)
[2018-06-06] MEDS: LACTATED RINGERS SOLUTION 1,000 ML IV SCH (13:20)
[2018-06-06] MEDS ORDERED: INSULIN (NOVOLOG) ASPART 100 UNITS/ML 10ML VIAL ONE (17:13)
--- NOTE | 2018-06-06 17:42 | PN ---
Progress Note, Physician Chief Complaint: abdominal pain History of Present Illness: 88 year-old female with a PMH significant for HTN, afib on Eliquis, DVT, acute cholecystitis s/p pneumoperitoneum s/p cholecystostomy (05/11/18, Rebeca) because she was unable to tolerate pneumoperitonium. stable since surgery - Current Medication List Current Medications: Active Medications Amino Acids (Prosource No Carb Liquid Pkt) 30 ml PO BID@0800,1730 [facility] Last Admin: 06/06/18 17:20 Dose: 30 ml Amlodipine Besylate (Norvasc -) 10 mg PO DAILY [facility] Last Admin: 06/06/18 09:35 Dose: 10 mg Apixaban (Eliquis -) 2.5 mg PO BID [facility] Last Admin: 06/06/18 09:33 Dose: 2.5 mg Lactated Ringer's (Lactated Ringers Solution) 1,000 mls @ 125 mls/hr IV ASDIR [facility] Last Admin: 06/06/18 13:20 Dose: Not Given Lidocaine (Lidoderm Patch -) 1 patch TP DAILY [facility] Last Admin: 06/06/18 09:35 Dose: 1 patch Losartan Potassium (Cozaar -) 100 mg PO DAILY [facility] Last Admin: 06/06/18 09:32 Dose: 100 mg Magnesium Hydroxide (Milk Of Magnesia -) 30 ml PO Q8H PRN PRN Reason: INDIGESTION Last Admin: 06/06/18 09:37 Dose: 30 ml Miscellaneous (Lidoderm Patch Removal) 1 each MC DAILY@2200 [facility] Last Admin: 06/06/18 07:17 Dose: Not Given Polyethylene Glycol (Miralax (For Daily Use) -) 17 gm PO DAILY [facility] Last Admin: 06/06/18 09:34 Dose: 17 gm Simethicone (Mylicon -) 80 mg PO Q4H PRN PRN Reason: DYSPEPSIA Last Admin: 06/05/18 10:41 Dose: 80 mg - Objective Vital Signs: Vital Signs Temperature 97.6 F 06/06/18 17:02 Pulse Rate 67 06/06/18 17:02 Respiratory Rate 20 06/06/18 17:02 Blood Pressure 124/57 L 06/06/18 17:02 O2 Sat by Pulse Oximetry (%) 98 06/05/18 20:53 Constitutional: Yes: Well Nourished, No Distress, Calm Eyes: Yes: Conjunctiva Clear, EOM Intact HENT: Yes: Atraumatic, Normocephalic Neck: Yes: Supple, Trachea Midline Cardiovascular: Yes: Regular Rate and Rhythm, S1, S2 Respiratory: Yes: Regular, CTA Bilaterally Gastrointestinal: Yes: Normal Bowel Sounds, Soft. No: Tenderness ...Rectal Exam: Yes: Deferred Genitourinary: No: CVA Tenderness - Left, CVA Tenderness - Right Breast(s): No: Discharge from Nipple, Mass Musculoskeletal: No: Muscle Pain, Muscle Weakness Extremities: No: Cool, Cyanosis Edema: No Peripheral Pulses WNL: Yes Peripheral Pulses: Left Radial: 2+, Right Radial: 2+, Left Doralis Pedis: 2+, Right Dorsalis Pedis: 2+, Left Femoral: 2+, Right Femoral: 2+ Wound/Incision: Yes: Clean/Dry, Well Approximated. No: Dressing Dry and Intact Neurological: Yes: Alert, Oriented Psychiatric: Yes: Alert, Oriented Labs: CBC, BMP 06/05/18 06:30 06/06/18 05:30 INR, PTT INR 1.54 (0.82-1.09) H 05/30/18 12:45 Problem List - Problems (1) Cholecystostomy tube dysfunction Assessment/Plan: 88 yo female with Afib on eloquis with increased abdominal pain following a cholecystogram 3 days ago, Plan for return to OR for cholecystectomy POD#3 s/p laparoscopic Cholecystectomy Advance diet as tolerated IVF hydration adequate analgesia OOB and ambulate PT evaluation encourge IS Resume anticoagulation 48hours after surgery discharge at the discretion of the primary team will follow Code(s): T85.518A - BREAKDOWN (MECHANICAL) OF GI PROSTH DEV/GRFT, INIT Qualifiers: Encounter type: initial encounter Qualified Code(s): T85.518A - Breakdown ( mechanical) of other gastrointestinal prosthetic devices, implants and grafts, initial encounter (2) Hypokalemia Code(s): E87.6 - HYPOKALEMIA (3) Hyponatremia Code(s): E87.1 - HYPO-OSMOLALITY AND HYPONATREMIA (4) Afib Code(s): I48.91 - UNSPECIFIED ATRIAL FIBRILLATION Qualifiers: Atrial fibrillation type: chronic Qualified Code(s): I48.2 - Chronic atrial fibrillation (5) Cholecystitis Code(s): K81.9 - CHOLECYSTITIS, UNSPECIFIED (6) HTN (hypertension) Code(s): I10 - ESSENTIAL (PRIMARY) HYPERTENSION Qualifiers: Hypertension type: essential hypertension Qualified Code(s): I10 - Essential (primary) hypertension
[2018-06-07 06:13] VITALS: PULSE 74
[2018-06-07 06:53] LABS: HEMATOCRIT 34.5 % (32.4-45.2); HEMOGLOBIN 11.1 GM/dL (10.7-15.3); MCH 22.6 pg (25.7-33.7); MCHC 32.1 g/dl (32.0-36.0); MEAN CELL VOLUME 70.5 fl (80-96); MEAN PLT VOLUME 9.2 fl (7.5-11.1); PLATELET COUNT 175 K/MM3 (134-434); RBC 4.89 M/mm3 (3.60-5.2); RDW 14.9 % (11.6-15.6); WHITE BLOOD COUNT 5.2 K/mm3 (4.0-10.0)
[2018-06-07] MEDS: amLODIPine BESYLATE 10 MG TABLET (FP) PO SCH ×2 (07:22→09:35)
[2018-06-07] MEDS: LOSARTAN POTASSIUM 50 MG TABLET (FP) PO SCH ×2 (07:22→09:35)
[2018-06-07] MEDS: POLYETHYLENE GLYCOL 3350 119 GM BTL PO SCH ×2 (07:22→09:35)
[2018-06-07] MEDS: LIDOCAINE PATCH REMOVAL MC SCH (07:22)
[2018-06-07] MEDS: AMINO ACIDS/PROTEIN HYDROLYS 30 ML LIQUID.PKT PO SCH (08:33)
[2018-06-07] MEDS: MAGNESIUM HYDROX 2400MG/30ML ORAL SUSPENSION 30 ML CUP PO PRN (08:39)
[2018-06-07] MEDS: APIXABAN 2.5 MG TABLET PO SCH (09:35)
[2018-06-07] MEDS: LIDOCAINE 5% TOPICAL PATCH TP SCH (09:35)
[2018-06-07 10:45] VITALS: BP 112/64; TEMP 97.9
--- NOTE | 2018-06-07 11:20 | DS ---
Physical Examination Vital Signs: Vital Signs Temperature 97.9 F 06/07/18 10:00 Pulse Rate 74 06/07/18 10:00 Respiratory Rate 18 06/07/18 10:00 Blood Pressure 112/64 06/07/18 10:00 O2 Sat by Pulse Oximetry (%) 98 06/06/18 21:00 Findings/Remarks: Patient is an 88 y/o female with past medical history of HTN, Afob on Eliquis, DVT acute cholecystitis s/p pneumoperitoneum s/p cholecystectomy 05/11/18. Completed 2 week course of ABT presented to ER with complaints of RUQ pain x 2 days. Constitutional: Yes: No Distress, Calm Eyes: Yes: Conjunctiva Clear HENT: Yes: Atraumatic Cardiovascular: Yes: Pulse Irregular Respiratory: Yes: Regular, CTA Bilaterally Gastrointestinal: Yes: Normal Bowel Sounds, Soft Musculoskeletal: Yes: WNL Extremities: Yes: WNL Edema: No Neurological: Yes: Alert, Oriented Psychiatric: Yes: Alert, Oriented Labs: CBC, BMP 06/07/18 05:30 06/06/18 05:30 Discharge Summary Reason For Visit: CHOLECYSTOSTOMY TUBE DYSFUCTION,HYPONATREMIA,HYPOK Current Active Problems Cholecystostomy tube dysfunction (Acute) Constipation (Acute) Hypokalemia (Acute) Hyponatremia (Acute) Hospital Course: see progress notes Laboratory Tests 05/30/18 05/30/18 05/30/18 11:01 11:01 11:01 WBC 6.8 RBC 5.49 H Hgb 12.7 Hct 39.7 MCV 72.3 L MCH 23.1 L MCHC 32.0 RDW 14.0 Plt Count 233 MPV 9.8 Absolute Neuts (auto) 4.4 Neutrophils % 64.2 Neutrophils % (Manual) Lymphocytes % 24.6 Lymphocytes % (Manual) Monocytes % 10.6 H Monocytes % (Manual) Eosinophils % 0.4 Basophils % 0.2 Nucleated RBC % Hypochromia Platelet Estimate Microcytosis PT with INR INR PTT (Actin FS) Sodium 126 L Potassium 2.8 L* Chloride 94 L Carbon Dioxide 21 Anion Gap 11 BUN 21 H Creatinine 1.3 Creat Clearance w eGFR 38.66 Random Glucose 146 H Lactic Acid 1.8 Calcium 8.2 L Phosphorus Magnesium Total Bilirubin 1.4 H Direct Bilirubin AST 42 H ALT 30 Alkaline Phosphatase 77 D Total Protein 7.0 Albumin 3.2 L Lipase 297 Stool Occult Blood Blood Type Antibody Screen 05/30/18 05/30/18 05/30/18 12:45 12:45 12:45 WBC RBC Hgb Hct MCV MCH MCHC RDW Plt Count MPV Absolute Neuts (auto) Neutrophils % Neutrophils % (Manual) Lymphocytes % Lymphocytes % (Manual) Monocytes % Monocytes % (Manual) Eosinophils % Basophils % Nucleated RBC % Hypochromia Platelet Estimate Microcytosis PT with INR 17.1 H INR 1.54 H PTT (Actin FS) 39.8 H Sodium Potassium Chloride Carbon Dioxide Anion Gap BUN Creatinine Creat Clearance w eGFR Random Glucose Lactic Acid Calcium Phosphorus Magnesium 1.5 L Total Bilirubin Direct Bilirubin AST ALT Alkaline Phosphatase Total Protein Albumin Lipase Stool Occult Blood Blood Type O NEGATIVE Antibody Screen Negative 05/30/18 05/30/18 05/30/18 16:00 16:00 20:15 WBC 6.2 RBC 5.41 H Hgb 12.1 Hct 38.9 MCV 71.9 L MCH 22.3 L MCHC 31.0 L RDW 13.9 Plt Count 206 MPV 9.4 Absolute Neuts (auto) 3.0 Neutrophils % No Result Required. Neutrophils % (Manual) 60.0 Lymphocytes % No Result Required. Lymphocytes % (Manual) 34.0 Monocytes % Monocytes % (Manual) 6 Eosinophils % Basophils % Nucleated RBC % Hypochromia 2+ Platelet Estimate Adequate Microcytosis 1+ PT with INR INR PTT (Actin FS) Sodium 133 L 136 Potassium 3.3 L 4.1 Chloride 102 106 Carbon Dioxide 23 25 Anion Gap 8 5 L BUN 18 18 Creatinine 1.1 1.0 Creat Clearance w eGFR 46.88 52.33 Random Glucose 83 78 Lactic Acid Calcium 8.3 L 8.5 Phosphorus Magnesium 1.6 L 2.1 Total Bilirubin 1.2 H Direct Bilirubin 0.4 H AST 34 ALT 25 Alkaline Phosphatase 70 Total Protein 6.5 Albumin 3.0 L Lipase Stool Occult Blood Blood Type Antibody Screen 05/31/18 05/31/18 05/31/18 06:05 06:05 11:50 WBC 5.7 RBC 6.06 H Hgb 13.5 Hct 42.3 MCV 69.9 L MCH 22.4 L MCHC 32.0 RDW 15.6 Plt Count 185 MPV 9.1 Absolute Neuts (auto) 2.7 Neutrophils % 47.6 Neutrophils % (Manual) Lymphocytes % 41.9 H D Lymphocytes % (Manual) Monocytes % 8.6 Monocytes % (Manual) Eosinophils % 1.3 Basophils % 0.6 Nucleated RBC % 0 Hypochromia Platelet Estimate Microcytosis PT with INR INR PTT (Actin FS) 136.2 H Sodium 143 Potassium 3.4 L Chloride 108 H Carbon Dioxide 25 Anion Gap 9 BUN 15 Creatinine 0.9 Creat Clearance w eGFR 59.09 Random Glucose 93 Lactic Acid Calcium 8.3 L Phosphorus Magnesium 2.1 Total Bilirubin 0.8 Direct Bilirubin 0.4 H AST 35 ALT 32 Alkaline Phosphatase 90 Total Protein 7.4 Albumin 3.0 L Lipase Stool Occult Blood Blood Type Antibody Screen 05/31/18 06/01/18 06/01/18 22:05 06:30 06:30 WBC 5.2 RBC 5.85 H Hgb 13.1 Hct 41.3 MCV 70.6 L MCH 22.4 L MCHC 31.7 L RDW 15.4 Plt Count 185 MPV 8.8 Absolute Neuts (auto) Neutrophils % Neutrophils % (Manual) Lymphocytes % Lymphocytes % (Manual) Monocytes % Monocytes % (Manual) Eosinophils % Basophils % Nucleated RBC % Hypochromia Platelet Estimate Microcytosis PT with INR INR PTT (Actin FS) 89.8 H 64.0 H Sodium Potassium Chloride Carbon Dioxide Anion Gap BUN Creatinine Creat Clearance w eGFR Random Glucose Lactic Acid Calcium Phosphorus Magnesium Total Bilirubin Direct Bilirubin AST ALT Alkaline Phosphatase Total Protein Albumin Lipase Stool Occult Blood Blood Type Antibody Screen 06/01/18 06/01/18 06/02/18 06:30 15:00 06:30 WBC 5.2 RBC 5.73 H Hgb 12.8 Hct 40.7 MCV 71.1 L MCH 22.3 L MCHC 31.4 L RDW 15.8 H Plt Count 170 MPV 8.8 Absolute Neuts (auto) Neutrophils % Neutrophils % (Manual) Lymphocytes % Lymphocytes % (Manual) Monocytes % Monocytes % (Manual) Eosinophils % Basophils % Nucleated RBC % Hypochromia Platelet Estimate Microcytosis PT with INR INR PTT (Actin FS) Sodium 139 Potassium 3.7 Chloride 109 H Carbon Dioxide 25 Anion Gap 6 L BUN 10 Creatinine 0.7 Creat Clearance w eGFR 78.97 Random Glucose 97 Lactic Acid Calcium 8.6 Phosphorus Magnesium Total Bilirubin 0.7 Direct Bilirubin AST 30 ALT 29 Alkaline Phosphatase 89 Total Protein 7.5 Albumin 2.9 L Lipase Stool Occult Blood Negative Blood Type Antibody Screen 06/02/18 06/02/18 06/03/18 06:30 06:30 07:00 WBC 4.9 RBC 5.84 H Hgb 13.2 Hct 41.0 MCV 70.1 L MCH 22.6 L MCHC 32.2 RDW 15.6 Plt Count 184 MPV 9.0 Absolute Neuts (auto) Neutrophils % Neutrophils % (Manual) Lymphocytes % Lymphocytes % (Manual) Monocytes % Monocytes % (Manual) Eosinophils % Basophils % Nucleated RBC % Hypochromia Platelet Estimate Microcytosis PT with INR INR PTT (Actin FS) 69.6 H Sodium 140 Potassium 3.6 Chloride 106 Carbon Dioxide 25 Anion Gap 8 BUN 7 Creatinine 0.6 Creat Clearance w eGFR 94.35 Random Glucose 94 Lactic Acid Calcium 8.1 L Phosphorus 3.3 Magnesium 1.4 L Total Bilirubin 0.6 Direct Bilirubin AST 26 ALT 27 Alkaline Phosphatase 87 Total Protein 7.1 Albumin 2.8 L Lipase Stool Occult Blood Blood Type Antibody Screen 06/03/18 06/04/18 06/04/18 07:00 06:00 06:00 WBC 4.6 RBC 5.57 H Hgb 12.5 Hct 38.8 MCV 69.7 L MCH 22.4 L MCHC 32.2 RDW 15.1 Plt Count 163 MPV 9.1 Absolute Neuts (auto) Neutrophils % Neutrophils % (Manual) Lymphocytes % Lymphocytes % (Manual) Monocytes % Monocytes % (Manual) Eosinophils % Basophils % Nucleated RBC % Hypochromia Platelet Estimate Microcytosis PT with INR INR PTT (Actin FS) 62.6 H 41.6 H Sodium Potassium Chloride Carbon Dioxide Anion Gap BUN Creatinine Creat Clearance w eGFR Random Glucose Lactic Acid Calcium Phosphorus Magnesium Total Bilirubin Direct Bilirubin AST ALT Alkaline Phosphatase Total Protein Albumin Lipase Stool Occult Blood Blood Type Antibody Screen 06/05/18 06/05/18 06/05/18 06:30 06:30 06:30 WBC 6.8 RBC 4.68 Hgb 10.7 Hct 32.8 D MCV 70.1 L MCH 22.8 L MCHC 32.5 RDW 14.9 Plt Count 145 MPV 9.0 Absolute Neuts (auto) Neutrophils % Neutrophils % (Manual) Lymphocytes % Lymphocytes % (Manual) Monocytes % Monocytes % (Manual) Eosinophils % Basophils % Nucleated RBC % Hypochromia Platelet Estimate Microcytosis PT with INR INR PTT (Actin FS) 37.0 H Sodium 137 Potassium 4.5 Chloride 106 Carbon Dioxide 25 Anion Gap 6 L BUN 16 Creatinine 0.7 Creat Clearance w eGFR 78.97 Random Glucose 82 Lactic Acid Calcium 8.5 Phosphorus Magnesium Total Bilirubin 0.7 Direct Bilirubin AST 31 ALT 28 Alkaline Phosphatase 78 Total Protein 6.5 Albumin 2.6 L Lipase Stool Occult Blood Blood Type Antibody Screen 06/06/18 06/07/18 05:30 05:30 WBC 5.2 RBC 4.89 Hgb 11.1 Hct 34.5 MCV 70.5 L MCH 22.6 L MCHC 32.1 RDW 14.9 Plt Count 175 D MPV 9.2 Absolute Neuts (auto) Neutrophils % Neutrophils % (Manual) Lymphocytes % Lymphocytes % (Manual) Monocytes % Monocytes % (Manual) Eosinophils % Basophils % Nucleated RBC % Hypochromia Platelet Estimate Microcytosis PT with INR INR PTT (Actin FS) Sodium 141 Potassium 4.2 Chloride 107 Carbon Dioxide 28 Anion Gap 6 L BUN 15 Creatinine 0.8 Creat Clearance w eGFR 67.69 Random Glucose 72 L Lactic Acid Calcium 8.5 Phosphorus Magnesium Total Bilirubin 0.5 Direct Bilirubin AST 30 ALT 29 Alkaline Phosphatase 88 Total Protein 6.9 Albumin 3.0 L Lipase Stool Occult Blood Blood Type Antibody Screen Active Medications Generic Name Dose Route Start Last Admin Trade Name Freq PRN Reason Stop Dose Admin Amino Acids 30 ml 06/05/18 17:30 06/07/18 08:33 Prosource No Carb Liquid Pkt PO 30 ml BID@0800,1730 MARISOL Administration Amlodipine Besylate 10 mg 06/05/18 10:00 06/07/18 09:35 Norvasc - PO 10 mg DAILY MARISOL Administration Apixaban 2.5 mg 06/06/18 10:00 06/07/18 09:35 Eliquis - PO 2.5 mg BID MARISOL Administration Lactated Ringer's 1,000 mls @ 125 mls/hr 06/04/18 10:17 06/06/18 13:20 Lactated Ringers Solution IV Not Given ASDIR MARISOL Lidocaine 1 patch 06/04/18 13:30 06/07/18 09:35 Lidoderm Patch - TP 1 patch DAILY MARISOL Administration Losartan Potassium 100 mg 06/05/18 10:00 06/07/18 09:35 Cozaar - PO 100 mg DAILY MARISOL Administration Magnesium Hydroxide 30 ml 06/06/18 09:10 06/07/18 08:39 Milk Of Magnesia - PO 30 ml Q8H PRN Administration INDIGESTION Miscellaneous 1 each 06/04/18 22:00 06/07/18 07:22 Lidoderm Patch Removal MC Not Given DAILY@2200 [facility] Polyethylene Glycol 17 gm 06/05/18 10:00 06/07/18 09:35 Miralax (For Daily Use) - PO Not Given DAILY [facility] Simethicone 80 mg 06/05/18 09:10 06/05/18 10:41 Mylicon - PO 80 mg Q4H PRN Administration DYSPEPSIA Condition: Stable - Instructions Diet, Activity, Other Instructions: Postoperative instructions: You had a laparoscopic cholecystectomy on 06/04/[address] Jason Jose of [facility]. Activity: Resume your usual activities gradually, but no heavy exertion or lifting more than 10-15 pounds for 1 month. Remove dressings 48 hours after surgery; sticky tapes underneath will fall off by themselves. You may shower daily starting then, just pat the incision areas dry. No bath or swimming until skin incisions have healed. Eat lightly at first, but advance to your usual diet as tolerated. Pain: For pain, you may use and alternate Tylenol (acetaminophen) 1-2 pills and/ or ibuprofen 200 mg (1-3 pills) every 6 hours each as needed; this means that you can take one OR the other at 3-hour intervals. If you are prescribed a Tylenol/narcotic combination for severe pain, use it instead of plain Tylenol as needed and switch back when your pain starts decreasing. Do not take more than 4000mg of acetaminophen in a day. Take medications as prescribed or indicated on the labeling. Follow-up: Call Dr. Jose' office at [phone] to make your postop appointment (Monday in approximately 2 weeks after surgery). Clinic is held in the [facility] on the first floor of [facility]. Call the office if you have: * increasing pain not responsive to pain medication * fever of 101F or higher * vomiting * unusual or increasing bleeding or drainage from wounds * increasing redness or swelling at wound sites * inability to urinate Also, see your primary medical doctor within 1-2 weeks. Disposition: VNS/HOME HEALTH CARE - Home Medications Comprehensive Discharge Medication List: Ambulatory Orders Apixaban [Eliquis] 2.5 mg PO BID 05/30/18 Losartan/Hydrochlorothiazide [Losartan-Hctz 100-12.5 mg Tab] 1 tab PO DAILY 12/08 Amino Acids/Protein Hydrolys [Prosource No Carb Liquid Pkt] 30 ml PO BID@0800, 1730 #60 packet 06/07/18 Apixaban [Eliquis -] 2.5 mg PO BID tablet 06/07/18 Lidocaine 5% Patch [Lidoderm -] 1 patch TP DAILY #30 patch 06/07/18 Magnesium Hydrox 2400MG/30Ml [Milk of Magnesia -] 30 ml PO Q8H PRN #1 bottle Polyethylene Glycol 3350 [Miralax 119 gm Btl -] 17 gm PO DAILY #1 bottle Simethicone [Mylicon -] 80 mg PO Q4H PRN #30 tab.chew 06/07/18
== END 2018-06-07 15:02 | disposition home health service (06) | DRG 908 ==
LOC: FER 10:10 → UNDOADMOB 12:11 → FM/S 12:11 → INTOOBSV 12:11 → FM/S 14:59 → J8W 21:35 → OBSVTOIN 06-03 14:35
PROVIDERS: ADMIT Internal Medicine; ATTEND Family Medicine
PROC: 0FT44ZZ Resection of Gallbladder, Percutaneous Endoscopic Approach (ICD-10-PCS; principal; 2018-06-04 08:00)
DX: T85.518A Breakdown (mechanical) of other gastrointestinal prosthetic devices, implants and grafts, initial encounter (principal); E87.1 Hypo-osmolality and hyponatremia; K82.0 Obstruction of gallbladder; K81.1 Chronic cholecystitis; K82.8 Other specified diseases of gallbladder; I10 Essential (primary) hypertension; E87.6 Hypokalemia; I48.91 Unspecified atrial fibrillation; K74.60 Unspecified cirrhosis of liver; Z79.01 Long term (current) use of anticoagulants; Z86.718 Personal history of other venous thrombosis and embolism; I45.81 Long QT syndrome; Z96.653 Presence of artificial knee joint, bilateral; Z95.0 Presence of cardiac pacemaker; E83.42 Hypomagnesemia; K59.00 Constipation, unspecified; E66.9 Obesity, unspecified; Z68.25 Body mass index [BMI] 25.0-25.9, adult
CPT/HCPCS: 36415; 74177-TC; 80048; 80053; 80076; 82272; 83605; 83690; 83735; 84100; 85025; 85027; 85610; 85730; 86850; 86900; 86901; 88300-TC; 88304-TC; 93005; 94760; 97116-GP; 97161-GP; 99284-25; G0378; J0131; J1644; J7030

== ENCOUNTER 2018-12-01 11:16 | Emergency (ER) | payer OTHER, BC ==
--- NOTE | 2018-12-01 11:27 | PDOC ---
History of Present Illness - General Chief Complaint: Pain Stated Complaint: LEFT HAND/WRIST PAIN Time Seen by Provider: 12/01/18 11:18 - History of Present Illness Initial Comments: 12/01/18 11:36 88yo Spanish speaking female with hx of htn presents for eval of L wrist swelling/pain. Pt denies trauma, but per the son was carrying her suitcase in her L arm. Pt returned from [place] on Monday and has had pain and swelling since. Pt with soft tissue swelling to volar surface of L hand near the wrist and the palmar surface of the wrist with ttp. No ttp over the anatomic snuff box. No ttp along the radius or ulnar bones. Pt denies f/c. No other somatic complaints. Pt does admit to eating more red meat and drinking more red wine while in [place]. Pmhx: htn, afib on xarelto, dvt Pshx: bailee, b/l knee replacement All: prednisone, pseudoephedrine, lexpro home meds: losartan, xarelto every other day Past History - Past Medical History Allergies/Adverse Reactions: Allergies Allergy/AdvReac Type Severity Reaction Status Date / Time prednisone Allergy Rash Verified 05/30/18 10:14 pseudoephedrine AdvReac Intermediate palpitation Verified 05/30/18 10:13 s lexpro Allergy Intermediate itching Uncoded 05/30/18 10:13 Home Medications: Ambulatory Orders Apixaban [Eliquis] 2.5 mg PO BID 05/30/18 Losartan/Hydrochlorothiazide [Losartan-Hctz 100-12.5 mg Tab] 1 tab PO DAILY 12/08 Cardiac Disorders: Yes (AFIB) COPD: No HTN: Yes - Surgical History Abdominal Surgery: Yes (s/p bailee drain) Orthopedic Surgery: Yes (BILATERAL KNEE REPLACEMENT) - Psycho Social/Smoking Cessation Hx Smoking Status: No Smoking History: Never smoked Have you smoked in the past 12 months: No Number of Cigarettes Smoked Daily: 0 Hx Alcohol Use: No Drug/Substance Use Hx: No Substance Use Type: None Hx Substance Use Treatment: No Review of Systems - Review of Systems Able to Perform ROS?: Yes (son translating) Constitutional: No: Chills, Fever HEENTM: No: Nose Pain, Throat Pain Respiratory: No: Cough, Shortness of Breath Cardiac (ROS): No: Chest Pain, Irregular Heart Rate ABD/GI: No: Diarrhea, Nausea, Vomiting, Abdominal cramping : No: Burning, Dysuria Musculoskeletal: Yes: Joint Pain, Joint Swelling Integumentary: Yes: Erythema. No: Bruising, Rash Neurological: No: Headache, Numbness, Paresthesia All Other Systems: Reviewed and Negative *Physical Exam - Physical Exam General Appearance: Yes: Nourished, Appropriately Dressed. No: Apparent Distress HEENT: positive: EOMI, Normal Voice Neck: positive: Supple Respiratory/Chest: positive: Lungs Clear, Normal Breath Sounds. negative: Respiratory Distress Cardiovascular: positive: Regular Rhythm, Regular Rate, S1, S2 Gastrointestinal/Abdominal: positive: Normal Bowel Sounds, Soft. 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, Fully Oriented, Alert, Normal Mood/ Affect ED Treatment Course - LABORATORY CBC & Chemistry Diagram: 12/01/18 11:52 12/01/18 11:52 Medical Decision Making - Medical Decision Making 12/01/18 11:43 a/p: 88yo female with L wrist swelling -poss tendonitis vs fx vs gout -will send labs, uric acid -will send for ultrasound -will monitor and reassess -tylenol for pain in the ED 12/01/18 12:31 labs reviewed no elevated wbc hgb stable microcytic rbc uric acid not elevated pending xray 12/01/18 12:40 prelim read - 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 Rios in the past from [facility] will also give orthopedics follow up here pmd is dr. barron has appt monday with him 12/01/18 12:41 xray shows arthritis pt stable for dc to home Discharge - Discharge Information Problems reviewed: Yes Clinical Impression/Diagnosis: Arthralgia of wrist, left Condition: Stable Disposition: HOME - Admission No - Follow up/Referral Referrals: Tone Barron MD [Staff Physician] - Kalpesh Diaz MD [Staff Physician] - Zay Todd MD [Staff Physician] - Nguyễn Pettit DO [Staff Physician] - El Rios MD [Staff Physician] - - Patient Discharge Instructions Patient Printed Discharge Instructions: DI for Wrist Pain Additional Instructions: Please apply ice to the wrist - 20 min on and 20 min off. Please take tylenol or motrin as needed for pain. Please keep the splint on. Please make an appointment to see the orthopedist in the next week. Please keep the hand and wrist elevated. Please return to the ED with any further concerns or complaints. Please also keep the appointment with your PMD as scheduled. - Post Discharge Activity
[2018-12-01] MEDS ORDERED: ACETAMINOPHEN 500 MG TABLET (FP) PO ONE (11:43)
[2018-12-01 11:45] VITALS: BP 180/100; PULSE 75; TEMP 97.6; BMI 27.9
[2018-12-01] MEDS ORDERED: ACETAMINOPHEN 500 MG TABLET (FP) ONE (11:49)
[2018-12-01 11:58] LABS: BASO % 0.2 % (0-2.0); EOS % 1.8 % (0-4.5); HEMATOCRIT 40.7 % (32.4-45.2); HEMOGLOBIN 12.5 GM/dl (10.7-15.3); MCH 22.4 pg (25.7-33.7); MCHC 30.8 g/dl (32.0-36.0); MEAN CELL VOLUME 72.7 fl (80-96); MEAN PLT VOLUME 8.6 fl (7.5-11.1); MONO % 10.7 % (3.8-10.2); NEUT % 52.3 % (42.8-82.8); PLATELET COUNT 274 K/MM3 (134-434); RBC 5.59 M/mm3 (3.60-5.2); RDW 17.1 % (11.6-15.6); WHITE BLOOD COUNT 5.4 K/mm3 (4.0-10.8)
[2018-12-01 12:19] LABS: ALBUMIN 3.6 g/dl (3.4-5.0); BILIRUBIN,TOTAL 1.2 mg/dl (0.2-1); CALCIUM 8.6 mg/dl (8.5-10); CREATININE 0.9 mg/dl (0.55-1.3); TOT PROT 7.8 g/dl (6.4-8.2); URIC ACID 5.9 mg/dl (2.6-7.2)
[2018-12-01 12:49] LABS: POTASSIUM 3.7 mmol/L (3.5-5.1)
== END 2018-12-01 12:58 | disposition home or self-care (01) ==
LOC: FER 11:16
PROC: 2W39X1Z Immobilization of Left Upper Extremity using Splint (ICD-10-PCS; principal; 2018-12-01)
DX: M25.532 Pain in left wrist (principal); Z88.8 Allergy status to other drugs, medicaments and biological substances; I10 Essential (primary) hypertension; I48.91 Unspecified atrial fibrillation; Z79.01 Long term (current) use of anticoagulants; Z86.718 Personal history of other venous thrombosis and embolism; Z96.653 Presence of artificial knee joint, bilateral
CPT/HCPCS: 36415; 73110-TC-LT-FY; 73130-TC-LT-FY; 80053; 84550; 85025; 99282-25

== ENCOUNTER 2018-12-08 14:56 | Emergency (ER) | payer OTHER, BC ==
[2018-12-08 15:17] VITALS: TEMP 97.7; BMI 27.9
[2018-12-08 16:33] LABS: ALBUMIN 3.5 g/dl (3.4-5.0); BILIRUBIN,TOTAL 0.9 mg/dl (0.2-1); CALCIUM 8.8 mg/dl (8.5-10); CREATININE 0.9 mg/dl (0.55-1.3); POTASSIUM 3.3 mmol/L (3.5-5.1); TOT PROT 7.5 g/dl (6.4-8.2)
[2018-12-08 16:43] LABS: BASO % 0.1 % (0-2.0); EOS % 0.7 % (0-4.5); HEMATOCRIT 42.8 % (32.4-45.2); HEMOGLOBIN 13.6 GM/dl (10.7-15.3); LYMPH % 26.7 % (8-40); MCH 22.9 pg (25.7-33.7); MCHC 31.7 g/dl (32.0-36.0); MEAN CELL VOLUME 72.1 fl (80-96); MEAN PLT VOLUME 9.3 fl (7.5-11.1); MONO % 11.5 % (3.8-10.2); PLATELET COUNT 295 K/MM3 (134-434); RBC 5.94 M/mm3 (3.60-5.2); RDW 16.1 % (11.6-15.6); WHITE BLOOD COUNT 9.2 K/mm3 (4.0-10.8)
[2018-12-08 16:44] LABS: ADD RBC MORPHOLOGY YES
[2018-12-08] MEDS ORDERED: POTASSIUM CHLORIDE TABS 20 MEQ TABLET.ER (FP) PO ONE ×2 (16:51→16:57)
[2018-12-08 17:06] VITALS: BP 173/113; PULSE 80
--- NOTE | 2018-12-08 17:07 | PDOC ---
Documentation entered by Inez Perkins SCRIBE, acting as scribe for Jez Sapp MD. Jez Sapp MD: This documentation has been prepared by the Gregorio owen Adrianna, SCRIBE, under my direction and personally reviewed by me in its entirety. I confirm that the documentation accurately reflects all work, treatment, procedures, and medical decision making performed by me. History of Present Illness - General Chief Complaint: Lightheaded Stated Complaint: DIZZINESS,FALL Time Seen by Provider: 12/08/18 14:58 - History of Present Illness Initial Comments: The patient is an 88 year old female, with a significant PMH of atrial fibrillation (on Xarelto), deep vein thrombosis, and hypertension, who presents to the ED for evaluation of pre-syncopal episode prior to arrival. Patients granddaughter as bedside assists in providing history. Patient was getting off the bus with her grandson earlier this afternoon going to [facility], when she suddenly felt weak and dizzy. She was able to get off the bus and ambulate into [facility], but once inside [facility] she felt too weak and slowly lowered onto her knees to the floor. The grandson denies any LOC or head contusion. Her granddaughter picked her up from [facility] and brought her home, but upon going up her flight of stairs she once again felt dizzy and weak. Patient believes it may be related to not eating enough this morning and taking too many medications. She reports feeling significantly better while in the ED. Denies chest pain, shortness of breath, palpitations, abdominal pain, diarrhea, constipation, blood in stool, dysuria, hematuria. Allergies: prednisone, pseudoephedrine, lexapro Social history: Lives with family. No tobacco, ETOH or drug use Surgical history: bilateral knee replacement, cholecystostomy tube, pneumoperitoneum PCP: Dr. Barron 12/08/18 16:58 Her recent visit for left wrist pain to the ED did not result in any new prescriptions. However, the patient saw her primary physician the next day and was placed on a steroid medication for the left wrist pain. Name of the medication and dose is not known. She has 1 more day of steroid medication before completing the course. Her left wrist is feeling much better. Past History - Past Medical History Allergies/Adverse Reactions: Allergies Allergy/AdvReac Type Severity Reaction Status Date / Time prednisone Allergy Rash Verified 12/08/18 15:10 pseudoephedrine AdvReac Intermediate palpitation Verified 12/08/18 15:10 s lexpro Allergy Intermediate itching Uncoded 05/30/18 10:13 Home Medications: Ambulatory Orders Apixaban [Eliquis] 2.5 mg PO BID 05/30/18 Losartan/Hydrochlorothiazide [Losartan-Hctz 100-12.5 mg Tab] 1 tab PO DAILY 12/08 Potassium Chloride [K-Dur -] 10 meq PO DAILY #7 tablet.er 12/08/18 Cardiac Disorders: Yes (AFIB) COPD: No HTN: Yes - Surgical History Abdominal Surgery: Yes (s/p bailee drain) Orthopedic Surgery: Yes (BILATERAL KNEE REPLACEMENT) - Psycho Social/Smoking Cessation Hx Smoking Status: No Smoking History: Never smoked Have you smoked in the past 12 months: No Number of Cigarettes Smoked Daily: 0 Hx Alcohol Use: No Drug/Substance Use Hx: No Substance Use Type: None Hx Substance Use Treatment: No Review of Systems - Review of Systems Comments:: CONSTITUTIONAL: Absent: Fever, Chills, Diaphoresis, Generalized Weakness, Malaise, Loss of Appetite HEENT: Absent: Rhinorrhea, Nasal Congestion, Throat Pain, Throat Swelling, Difficulty Swallowing, Mouth Swelling, Ear Pain, Eye Pain, Visual Changes CARDIOVASCULAR: Absent: Chest Pain, Syncope, Palpitations, Irregular Heart Rate, Lightheadedness , Peripheral Edema RESPIRATORY: Absent: Cough, Shortness of Breath, SOB with Exertion, Orthopnea, Wheezing, Stridor, Hemoptysis GASTROINTESTINAL: Absent: Abdominal pain, Abdominal Distension, Nausea, Vomiting, Diarrhea, Constipation, Melena, Hematochezia GENITOURINARY: Absent: Dysuria, Frequency, Urgency, Hesitancy, Flank Pain, Genital Pain MUSCULOSKELETAL: Absent: Myalgia, Arthralgia, Joint Swelling, Back pain, Neck Pain SKIN: Absent: Rash, Itching, Pallor HEMATOLOGIC/IMMUNOLOGIC: Absent: Easy Bleeding, Easy Bruising, Lymphadenopathy, Frequent infections ENDOCRINE: Absent: Unexplained Weight Gain, Unexplained Weight Loss, Heat Intolerance, Cold Intolerance NEUROLOGIC: +Dizziness. +Weakness. Absent: Headache, Paresthesias, Lightheadedness, Unsteady Gait, Seizure, Mental Status Changes, Incontinence PSYCHIATRIC: Absent: Anxiety, Depression *Physical Exam - Vital Signs Last Vital Signs Temp Pulse Resp BP Pulse Ox 97.7 F 64 19 188/102 H 98 12/08/18 14:57 12/08/18 14:57 12/08/18 14:57 12/08/18 14:57 12/08/18 14:57 - Physical Exam Comments: GENERAL: The patient is awake, alert, and fully oriented, in no acute distress. She states, "I feel well and I want to go home." HEAD: Normal with no signs of trauma. EYES: Pupils equal, round and reactive to light, extraocular movements intact, sclera anicteric, conjunctiva clear. ENT: Ears normal, nares patent, oropharynx clear without exudates. Moist mucous membranes. NECK: Normal range of motion, supple without lymphadenopathy, JVD, or masses. LUNGS: Breath sounds equal, clear to auscultation bilaterally. No wheezes, and no crackles. HEART: +Irregularly irregular. normal S1 and S2 without murmur, rub or gallop. ABDOMEN: Soft, nontender, normoactive bowel sounds. No guarding, no rebound. No masses. EXTREMITIES:+Increased pigmentation of the bilateral ankles consistent with venous stasis without pitting edema. Normal range of motion. No clubbing or cyanosis. No cords, erythema, or tenderness. The left wrist is in a Velcro wrist splint and is without signs of inflammation or swelling. NEUROLOGICAL: Cranial nerves II through XII grossly intact. Normal speech, normal gait. Normal strength in the upper and lower extremities. Normal sensation throughout. No pronator drift. PSYCH: Normal mood, normal affect. SKIN: +Increased pigmentation of the bilateral ankles consistent with venous stasis without pitting edema. Warm, Dry, normal turgor. No knee abrasions or lacerations or swelling. ED Treatment Course - LABORATORY CBC & Chemistry Diagram: 12/08/18 16:00 12/08/18 16:00 - ADDITIONAL ORDERS Additional order review: Laboratory Results 12/08/18 12/08/18 16:00 16:00 Sodium 132 L Potassium 3.3 L Chloride 97 L Carbon Dioxide 27 Anion Gap 8 BUN 22.0 H Creatinine 0.9 Est GFR (CKD-EPI)AfAm 66.16 Est GFR (CKD-EPI)NonAf 57.09 Random Glucose 116 H Calcium 8.8 Total Bilirubin 0.9 AST 58 H ALT 70 H Alkaline Phosphatase 99 Troponin I 0.04 Total Protein 7.5 Albumin 3.5 12/08/18 16:00 RBC 5.94 H MCV 72.1 L MCHC 31.7 L RDW 16.1 H MPV 9.3 Neutrophils % 61.0 Lymphocytes % 26.7 Monocytes % 11.5 H Eosinophils % 0.7 Basophils % 0.1 Medical Decision Making - Medical Decision Making 12/08/18 16:59 Elderly female comes in complaining of 2 episodes of weakness today. She had no chest pain, shortness of breath, palpitations, or dizziness. She did feel her legs were weak both times before she started to feel like she was going to fall. There was no trauma or significant fall on the first event, as she slowly went down and then sat down. The second event was just a transient feeling of leg weakness without any fall or loss of consciousness. Examination reveals chronic atrial fibrillation with well-controlled ventricular rate. Lungs are clear. Abdomen is benign. Extremities are warm and well perfused with some chronic stasis changes around the ankles without edema. Neurological testing is all normal. Twelve-lead EKG shows A. fib with no acute ST-T wave changes. Rate is 63. Laboratory work-up notable for mild transaminitis, which has been chronic for many years. Also notable is new hypokalemia, likely due to the recent steroid medication for 1 week for the left wrist pain. K-Dur 40 mEq given p.o., and 20 mEq ordered for daily use x5 days. Tomorrow is her last day of steroid medication for the left wrist pain. Impression: 1) weakness, nonspecific, possibly related to hypokalemia. 2) hypertension, chronic 3) no evidence of acute cardiac disease, no anemia, troponin is baseline, runs 0.03-0.04 on prior testing. Labs reviewed: Laboratory Results - last 24 hr 12/08/18 12/08/18 12/08/18 16:00 16:00 16:00 WBC 9.2 RBC 5.94 H Hgb 13.6 Hct 42.8 MCV 72.1 L MCH 22.9 L MCHC 31.7 L RDW 16.1 H Plt Count 295 MPV 9.3 Absolute Neuts (auto) 5.5 Neutrophils % 61.0 Lymphocytes % 26.7 Monocytes % 11.5 H Eosinophils % 0.7 Basophils % 0.1 Sodium 132 L Potassium 3.3 L Chloride 97 L Carbon Dioxide 27 Anion Gap 8 BUN 22.0 H Creatinine 0.9 Est GFR (CKD-EPI)AfAm 66.16 Est GFR (CKD-EPI)NonAf 57.09 Random Glucose 116 H Calcium 8.8 Total Bilirubin 0.9 AST 58 H ALT 70 H Alkaline Phosphatase 99 Troponin I 0.04 Total Protein 7.5 Albumin 3.5 12/08/18 17:07 The scribe's documentation has been prepared under my direction and personally reviewed by me in its entirety. I have confirmed that the note above accurately reflects all work, treatment, procedures, and medical decision- making performed by me. Discharge - Discharge Information Problems reviewed: Yes Clinical Impression/Diagnosis: Hypokalemia, Weakness generalized Condition: Improved Disposition: HOME - Admission No - Additional Discharge Information Prescriptions: Potassium Chloride [K-Dur -] 10 meq PO DAILY #7 tablet.er - Follow up/Referral Referrals: Tone Barron MD [Primary Care Provider] - - Patient Discharge Instructions Patient Printed Discharge Instructions: DI for Muscle Weakness, DI for Hypokalemia Additional Instructions: You were evaluated today for weakness. We found that your potassium level is low. You were given potassium pills in the emergency department. The EKG and heart testing was otherwise normal. Be sure to include high potassium foods in your diet, such as bananas and juice. Rest today at home, follow-up with Dr. Chan as scheduled on Monday. Return to the emergency department for any severe or progressive symptoms. - Post Discharge Activity
[2018-12-08 20:47] LABS: PLATELET ESTIMATE ADEQUATE; TEAR DROP CELLS 1+
--- NOTE | 2018-12-09 10:36 | EKG ---
Test Reason : Blood Pressure : / mmHG Vent. Rate : 063 BPM Atrial Rate : 084 BPM P-R Int : 000 ms QRS Dur : 094 ms QT Int : 396 ms P-R-T Axes : 000 -24 -54 degrees QTc Int : 405 ms ATRIAL FIBRILLATION INCOMPLETE RIGHT BUNDLE BRANCH BLOCK VOLTAGE CRITERIA FOR LEFT VENTRICULAR HYPERTROPHY NONSPECIFIC ST AND T WAVE ABNORMALITY ABNORMAL ECG WHEN COMPARED WITH ECG OF 30-MAY-2018 10:47, NONSPECIFIC T WAVE ABNORMALITY NOW EVIDENT IN LATERAL LEADS QT HAS SHORTENED Confirmed by MD CRICKET, AUSTYN ([id number]) on 12/09/2018 10:36:18 AM Referred By: Confirmed By:AUSTYN HARLEY MD
== END 2018-12-08 17:11 | disposition home or self-care (01) ==
LOC: SUPCPDRO 14:56 → FER 14:56
DX: E87.6 Hypokalemia (principal); R53.1 Weakness; Z88.8 Allergy status to other drugs, medicaments and biological substances
CPT/HCPCS: 36415; 80053; 84484; 85025; 93005; 99283-25